=== PATIENT | male | born 2005 | race Caucasian/White ===

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

== ENCOUNTER → 2023-01-02 13:13 | Outpatient (CLI) | payer OTHER, SELFPAY | PROVIDERS: PCP Nurse Practitioner Family; Visit Provider Internal Medicine | DX: G47.33 Obstructive sleep apnea (adult) (pediatric) (principal); R06.83 Snoring | CPT/HCPCS: G0399 ==

== ENCOUNTER 2023-01-24 20:41 | Emergency (ER) | payer SELFPAY ==
[2023-01-24 20:42] VITALS: BP 145/96; PULSE 85; RESP 16; TEMP 37; O2SAT 98; BMI 27.7
[2023-01-24 21:00] VITALS: BP 155/85; PULSE 84; RESP 20; O2SAT 98
--- NOTE | 2023-01-24 21:26 | CT_ITS ---
PROCEDURE INFORMATION: Exam: CT Abdomen And Pelvis With Contrast Exam date and time: 01/24/2023 9:54 PM Age: 17 years old Clinical indication: Abdominal pain; Flank; Right; Additional info: Ruq/rlq abd pain TECHNIQUE: Imaging protocol: Computed tomography of the abdomen and pelvis with contrast. Radiation optimization: All CT scans at this facility use at least one of these dose optimization techniques: automated exposure control; mA and/or kV adjustment per patient size (includes targeted exams where dose is matched to clinical indication); or iterative reconstruction. Contrast material: ISOVUE; Contrast volume: 75 ml; Contrast route: IV; REPORTING DATA: Count of CT and Cardiac NM exams in prior 12 months: This patient has received 3 known CTs and 0 known cardiac nuclear medicine studies in the 12 months prior to the current study. COMPARISON: CT ABDOMEN PELVIS W CON 11/25/2022 3:32 AM FINDINGS: Liver: Normal. No mass. Gallbladder and bile ducts: Normal. No calcified stones. No ductal dilation. Pancreas: Normal. No ductal dilation. Spleen: There are multiple calcifications in the spleen most likely reflects small granulomas. The spleen is enlarged measuring up to 15.1 cm in greatest anterior posterior dimension. Adrenal glands: Normal. No mass. Kidneys and ureters: Normal. No hydronephrosis. Stomach and bowel: Unremarkable. No obstruction. No mucosal thickening. Appendix: No evidence of appendicitis. Intraperitoneal space: Unremarkable. No free air. No significant fluid collection. Vasculature: Unremarkable. No abdominal aortic aneurysm. Lymph nodes: There are mildly prominent central mesenteric lymph nodes. Urinary bladder: Unremarkable as visualized. Reproductive: Unremarkable as visualized. Bones/joints: Unremarkable. No acute fracture. Soft tissues: Unremarkable. IMPRESSION: 1. Splenomegaly, a stable finding. 2. Mildly prominent central abdominal lymph nodes, a stable finding. 3. No acute pathology is identified in the abdomen or pelvis.
--- NOTE | 2023-01-24 21:30 | HMH.EDGENADL ---
Discharge Plan Disposition Patient Disposition: Home, Self-Care Condition: Good Prescriptions Prescriptions: New ondansetron HCl 4 mg tablet 4 mg PO Q8H PRN (Reason: nausea and vomiting) 5 Days Qty: 30 0RF No Action Entresto 49-51 mg tablet 1 tab PO BID Qty: 60 2RF bisoprolol fumarate 5 mg tablet 5 mg PO QDAY Qty: 30 5RF Referrals Follow up/Referrals: Kimberly Guerrero APRN [Primary Care Provider] - See instructions Activity Restrictions/Add. Instructions Additional Instructions/Restrictions: Please follow-up with your primary care provider for recheck of your platelets. They were a little bit low on our blood test today. Your CT scan also showed that your spleen was mildly enlarged. Please return to the emergency department if you develop any new or worsening symptoms or become concerned for your health. Please take Tylenol ibuprofen as needed for pain. Please take Zofran as needed for nausea and vomiting. Clinical Impressions Clinical Impression: Diarrhea, Vomiting, Thrombocytopenia, Splenomegaly Instructions Patient Instructions: DI for Acute Abdominal Pain Discharge ED Provider: Juwan Mccabe Adult HPI General Chief complaint: Abdominal Pain Stated complaint: diarrhea, abd pain Time Seen by Provider: 01/24/23 21:10 Mode of Arrival: Ambulatory Source of Information: Patient Limitations: No Limitations Description of Symptoms (Recalled from ER Triage Doc. by RN): pt reports 2 days of n/v/d with abd pain History of Present Illness HPI narrative: 17-year-old male, reportedly previously healthy presents with 2 days of worsening right upper quadrant and right lower quadrant abdominal pain, with associated nausea vomiting and diarrhea. Patient reports that he has felt warm at home but has not had a documented fever. He reports that nobody else has been sick. Denies any chest pain or shortness of breath. Reports history of heart issues . Related Data Previous Rx's Medication Instructions Recorded bisoprolol fumarate 5 mg tablet 5 mg PO QDAY #30 tabs 12/20/22 sacubitril 49 mg-valsartan 51 mg 1 tab PO BID #60 tabs 01/02/23 tablet (Entresto) ondansetron HCl 4 mg tablet 4 mg PO Q8H PRN nausea and 01/24/23 vomiting 5 days #30 tabs Allergies Allergy/AdvReac Type Severity Reaction Status Date / Time No Known Allergies Allergy Verified 01/02/23 13:39 PFSH PFSH Disclaimer: The information contained in this section may have been updated after the patient was seen, as this information can be updated by other users. Medical History (Updated 01/24/23 @ 22:28 by Juwan Mccabe MD) Abnormal computed tomography angiography (CTA) Abnormal electrocardiogram [ECG] [EKG] ASD (atrial septal defect) Asthma Burning chest pain Cardiomyopathy Chest pain Daytime somnolence Diastolic dysfunction Orthostatic hypotension Pulmonary valve regurgitation Snoring Syncope Systolic heart failure Surgical History No history of previous surgery Family History Other Alcoholism Diabetes Family history of heart disease Stroke Social History Smoking Status: Current some day smoker alcohol intake: former substance use type: marijuana current occupational status: unemployed and disabled Travel in the last 8 weeks: None household members: family housing: house marital status: single ROS Obtained: Yes All systems reviewed & no additional complaints except as documented Physical Exam General General appearance: alert and in no apparent distress Head Head exam: atraumatic and normocephalic Eye Eye exam: Present normal appearance, PERRL and EOMI ENT ENT exam: Present normal oropharynx and normal external ear exam Neck Neck exam: Present normal inspection and full ROM Chest Chest inspection: Present normal
[2023-01-24 21:31] VITALS: BP 136/84; PULSE 82; RESP 20; O2SAT 100
--- NOTE | 2023-01-24 21:36 | PC.NURSE ---
patient to bathroom
[2023-01-24 21:41] VITALS: BP 144/79; PULSE 76; RESP 16
[2023-01-24 21:44] LABS: Chloride 101 mmol/L (98-107); Potassium 3.6 mmoL/L (3.5-5.1); Sodium 140 mmol/L (136-145)
[2023-01-24 21:46] LABS: Alanine Aminotransferase 21 U/L (12-78); Aspartate Amino Transferase 33 U/L (17-59); Blood Urea Nitrogen 10 mg/dl (9-20); Creatinine Clearance Estimated 146 mL/min (50-200); Estimated Glomerular Filt Rate 86 ml/min (>60); GFR (African American) 104 ML/MIN (>60)
[2023-01-24 21:47] LABS: Albumin Level 4.7 g/dl (3.5-5.0); Albumin/Globulin Ratio 1.3 (1.1-1.8); Alkaline Phosphatase 98 U/L (38-126); Anion Gap 14.6 mEq/L (5-15); Bilirubin,Total 1.2 mg/dl (0.2-1.3); Calcium 9.6 mg/dl (8.4-10.2); Carbon Dioxide 28 mmol/L (22.0-30.0); Globulin 3.5 g/dL (1.3-3.2); Glucose 116 mg/dl (74-100); Lipase 59 U/L (23-300); Total Protein,Serum 8.2 g/dl (6.3-8.2)
[2023-01-24 21:48] LABS: Basophils % 0.5 % (0.1-2.0); Eosinophils % 0.8 % (0.1-12.0); Hematocrit 50.4 % (42.0-52.0); Hemoglobin 17.4 g/dL (14.1-18.0); Lymphocytes # 0.8 K/mm3 (0.7-4.5); Lymphocytes % 18.1 % (10-50); Mean Corpuscular HGB Conc 34.6 g/dL (31.8-35.4); Mean Corpuscular Hemoglobin 31.5 pg (27.0-31.2); Mean Platelet Volume 8.8 fl (7.4-10.4); Monocytes # 0.6 K/mm3 (0.1-1.0); Monocytes % 11.9 % (1.7-9.3); Neutrophils # 3.2 K/mm3 (1.8-7.8); Neutrophils % 68.7 % (37.0-80.0); Platelet Count 123 K/mm3 (142-424); Red Blood Count 5.54 M/mm3 (4.60-6.20); Red Cell Distribution Width 12.7 % (11.5-17.5); White Blood Count 4.7 K/mm3 (4.5-13.0)
--- NOTE | 2023-01-24 21:52 | PC.NURSE ---
pt to radiology
[2023-01-24 22:36] VITALS: BP 144/76; PULSE 82; RESP 16; TEMP 36.6; O2SAT 99
== END 2023-01-24 22:38 | disposition home or self-care (01) ==
PROVIDERS: Emergency Provider Emergency Medicine; PCP Nurse Practitioner Family
DX: D69.6 Thrombocytopenia, unspecified (principal); R16.1 Splenomegaly, not elsewhere classified; J45.909 Unspecified asthma, uncomplicated; I42.9 Cardiomyopathy, unspecified; I50.20 Unspecified systolic (congestive) heart failure; I37.1 Nonrheumatic pulmonary valve insufficiency; R10.11 Right upper quadrant pain; R10.32 Left lower quadrant pain; R11.2 Nausea with vomiting, unspecified; F17.200 Nicotine dependence, unspecified, uncomplicated
CPT/HCPCS: 74177; 80053; 83690; 85025; 96361; 96374; 96375; 99285; J2405; Q9967

== ENCOUNTER 2023-06-21 16:51 | Emergency (ER) | payer SELFPAY ==
[2023-06-21 18:10] VITALS: BP 111/72; PULSE 111; RESP 20; TEMP 38.6; O2SAT 97; BMI 32.4
[2023-06-21 18:31] LABS: UTC Influenza A Antigen Positive (Negative); UTC Influenza B Antigen Negative (Negative)
[2023-06-21 18:32] LABS: UTC Strep Screen (Rapid) Negative (Negative)
--- NOTE | 2023-06-21 18:52 | EXP.UTC ---
Discharge Plan Disposition Patient Disposition: Home, Self-Care Condition: Good Prescriptions Prescriptions: New oseltamivir [Tamiflu] 75 mg capsule 75 mg PO Q12H 5 Days Qty: 10 0RF No Action bisoprolol fumarate 5 mg tablet 5 mg PO QDAY Qty: 30 5RF Entresto 49-51 mg tablet 1 tab PO DAILY Referrals Follow up/Referrals: Provider,Referral, MD [Primary Care Provider] - See instructions Activity Restrictions/Add. Instructions Additional Instructions/Restrictions: Start Tamiflu today if you are going to take it. Discussed risk and possible benefits. Lots of rest Increase Fluids water, Gatorade, powerade, pedialyte,if /toddler/child Alternate Tylenol and / or ibuprofen as discussed for fever, aches, chills Follow up IMMEDIATELY with your family doctor for new or worsening Symptoms OR no noticeable improvement over the next 48-72 hours, 911 for difficulty or breathing You or your child area contagious until no fever, aches, chills for 24 hours with medication for symptoms Help Prevent the spread of influenza: ?Wash your hands often. Use soap and water. Wash your hands after you use the bathroom, change a child's diapers, or sneeze. Wash your hands before you prepare or eat food. Use gel hand cleanser that has 60% alcohol, when soap and water are not available. Do not touch your eyes, nose, or mouth unless you have washed your hands first. Cover your mouth when you sneeze or cough. Cough into a tissue or the bend of your arm. If you use a tissue, throw it away immediately and wash your hands. Clean shared items with a germ-killing suction plate carrier cleaner. Clean table surfaces, doorknobs, and light switches. Do not share towels, silverware, and dishes with people who are sick. Wash bed sheets, towels, silverware, and dishes with soap and water. Wear a mask over your mouth and nose if you are sick. The face mask may help protect others from becoming infected with the flu. Wear the mask when in common areas of your home or if you seek care with a healthcare provider. Stay away from others if you are sick. Stay at home until 24 hours after your fever and symptoms are gone. Clinical Impressions Clinical Impression: Influenza Instructions Patient Instructions: DI for Influenza -- Adult, Influenza, Oseltamivir Discharge ED Provider: Elizabeth Reyes [facility] [place] HPI General Stated complaint: congestion, sore throat Mode of Arrival: Ambulatory Source of Information: Patient Limitations: No Limitations Time Seen by Provider: 06/21/23 18:52 Description of Symptoms (Recalled from Triage Doc. by RN): PATIENT C/O CONGESTION, BODY ACHES, SORE THROAT, AND HEADACHE X 2 DAYS HEENT Symptoms (Recalled from RN notes): Yes Resp Symptoms (Recalled from RN notes): No Skin Symptoms (Recalled from RN notes): No MS Symptoms (Recalled from RN notes): No Functional Status (Recalled from RN notes): WNL History of Present Illness Provider Complaint: Patient states that his little brother and several other family members has the flu States that he has been having fever, chills, bodyaches all over and nasal congestion States that he has been having symptoms for two days and today he was still not feeling any better so he came in Related Data Home Medications Medication Instructions Recorded Confirmed sacubitril 49 mg-valsartan 51 mg 1 tab PO DAILY 06/21/23 06/21/23 tablet (Entresto) Previous Rx's Medication Instructions Recorded bisoprolol fumarate 5 mg tablet 5 mg PO QDAY #30 tabs 12/20/22 oseltamivir 75 mg capsule (Tamiflu) 75 mg PO Q12H 5 days #10 caps 06/21/23 Allergies Allergy/AdvReac Type Severity Reaction Status Date / Time No Known Allergies Allergy Verified 01/02/23 13:39 Worker's Comp Is this a Worker's Comp case?: No [facility] Disclaimer: The information contained in this section may have been updated after the patient was seen, as this information can be updated by other users. Medical History (Updated 06/21/23 @ 18:57 by Elizabeth Reyes APRN) Abnormal computed tomography angiography (CTA) Abnormal electrocardiogram [ECG] [EKG] ASD (atrial septal defect) Asthma Burning chest pain Cardiomyopathy Chest pain Daytime somnolence Diastolic dysfunction Orthostatic hypotension Pulmonary valve regurgitation Snoring Syncope Systolic heart failure Surgical History No history of previous surgery Family History Other Alcoholism Diabetes Family history of heart disease Stroke Social History (Reviewed 01/02/23 @ 13:39 by Trang Green Smoking Status: Current some day smoker alcohol intake: former substance use type: marijuana current occupational status: unemployed and disabled Travel in the last 8 weeks: None household members: family housing: house marital status: single ROS Obtained: Yes All systems reviewed & no additional complaints except as documented and Yes Systems reviewed as appropriate & no additional complaints except as documented Constitutional Constitutional: Reports system reviewed and no additional complaints, except as documented, Reports as per HPI, Reports body ache, Reports chills, Reports fever(s) and Reports headache(s) ENT Ears, Nose, Mouth, and Throat: Reports system reviewed and no additional complaints, except as documented, Reports as per HPI, Reports headache(s), Reports nasal congestion and Reports nasal discharge Cardiovascular Cardiovascular: Reports system reviewed and no additional complaints, except as documented and Reports as per HPI Respiratory Respiratory: Reports system reviewed and no additional complaints, except as documented and Reports as per HPI Gastrointestinal Gastrointestingal: Reports system reviewed and no additional complaints, except as documented and as per HPI Neurologic Neurologic: Reports headache(s) Physical Exam General General appearance: alert and in no apparent distress ENT ENT exam: Present mucous membranes moist Expanded ENT Exam Nose exam: Absent sinus tenderness Throat exam: Present normal inspection Respiratory Respiratory exam: Present normal lung sounds bilaterally; Absent respiratory distress or wheezes Cardiovascular Cardiovascular exam: Present regular rate, normal rhythm, tachycardia and normal heart sounds Neurological Exam Neurological exam: Present alert, oriented X3 and normal gait Medical Decision Making Alin Inquiry Pt receiving controlled substance: No Alin was queried for this patient: No Vital Signs: 06/21/23 18:10 Temperature 101.4 F H Temperature Source Oral Pulse Rate [Left Brachial] 111 H Respiratory Rate 20 Blood Pressure [Left Arm] 111/72 Blood Pressure Mean [Left Arm] 85 Blood Pressure Source [Left Arm] Automatic Cuff Blood Pressure Position [Left Arm] Sitting 02 Sat by Pulse Oximetry 97 Oxygen Delivery Method Room Air Lab Data Lab results reviewed: Yes I reviewed the patient's lab results. Lab Results 06/21/23 18:15: Strep Scn Rapid Clinic Negative 06/21/23 18:16: Influenza Type A Ag Positive A, Influenza Type B Ag Negative Orders (Tests/Meds): ORDERS Category Date Time Status Strep Screen Confirmation Stat Micro 06/21/23 18:15 Received
[2023-06-21 18:57] VITALS: BP 111/72; PULSE 111; RESP 20; TEMP 38.6; O2SAT 97
== END 2023-06-21 19:04 | disposition home or self-care (01) ==
PROVIDERS: Emergency Provider Nurse Practitioner
DX: J10.1 Influenza due to other identified influenza virus with other respiratory manifestations (principal); R09.81 Nasal congestion; R51.9 Headache, unspecified; Q21.10 Atrial septal defect, unspecified; J45.909 Unspecified asthma, uncomplicated; I42.9 Cardiomyopathy, unspecified; I50.20 Unspecified systolic (congestive) heart failure; I37.1 Nonrheumatic pulmonary valve insufficiency; F17.200 Nicotine dependence, unspecified, uncomplicated; R07.0 Pain in throat
CPT/HCPCS: 87804; 87880; 99212; 99214; G0463

== ENCOUNTER 2023-07-26 14:18 | Outpatient (CLI) | payer OTHER, SELFPAY ==
--- NOTE | 2023-07-26 14:21 | CA_ITS ---
APPROVED REPORT EXAM: Comprehensive 2D, Doppler, and color-flow Echocardiogram Supervisor Throwing Department: Celestina Gaitan RVT Ht: 6 ft 1 in Wt: 218lbs BSA: 2.23 BP: 141/69 mmHg Indications: CP,CM EF OF 40-45%,CHF,DD,SMOKER,ABBOTT,SYNCOPE,ABN EKG,CHF 2D Dimensions LA Volume 48.70 mL LA Volume Index 21.84 mL/m2 (M/F) 16-34 M-Mode Dimensions RVDd 2.77 cm (0.9-2.6) LA Diam 3.41 cm (1.9-4.0) LVDd 5.66 cm (3.5-5.7) LVDs 4.39 cm (3.5-5.7) IVSd 1.11 cm (0.6-1.1) PWd 0.59 cm (0.6-1.1) EF (Teich) 44.60% FS 22.40% EDV (Teich) 157.50 mL TAPSE 2.30 (<1.7) ESV (Teich) 87.20 mL LV Diastology E Decel Time 150 (160-240 msec) E/A Ratio 1.5 Aortic Valve PRAVEEN Index 1.32 cm2/m2 AoV Peak Yvan. 116.0 (50-130 cm/s) AO Peak GR. 5.40 mmHg AO Mean GR. 3.00 (<5 mmHg) AO VTI 23.7 (18-25 cm) PRAVEEN (VTI) 3.03 (2.5-4.5 cm2) Mitral Valve MV E Max Yvan. 64.0 (40-130 cm/s) MV A Velocity 43.0 (40-130 cm/s) E/A Ratio 1.49 MV PHT 44.0 ms Pulmonary Valve PV Peak Velocity 74.0 (50-150 cm/s) Tricuspid Valve TR P. Velocity 261.00 cm/s RAP Estimate 10.00 mmHg RVSP 37.30 mmHg Left Ventricle The left ventricle is normal size. Left ventricular systolic function is mildly decreased. There is normal left ventricular wall thickness. There is mild global hypokinesis present. Grade 1 diastolic dysfunction is present. LVEF is 40-45%. Right Ventricle The right ventricle is mildly dilated. Right ventricle is mildly hypokinetic. Atria The left atrium size is normal. The right atrium size is normal. Patient is known to have an interatrial shunt based on prior CCTA. There is no Doppler evidence of interatrial shunt on this study. Aortic Valve The aortic valve opens well. There is no aortic valvular stenosis. No aortic regurgitation is present. Mitral Valve The mitral valve is normal in structure. No evidence of mitral valve stenosis. Mild mitral regurgitation. Tricuspid Valve The tricuspid valve leaflets are thin and pliable. Trace tricuspid regurgitation. There is insufficient TR jet to estimate RVSP. Pulmonic Valve The pulmonary valve is normal in structure. Trace pulmonic regurgitation. Great Vessels The aortic root is normal in size. The ascending aorta is normal in size. IVC is normal in size and collapses >50% with inspiration. Pericardium There is no pericardial effusion. Other Information Study Quality: Fair Conclusion Mildly reduced LV systolic function (LVEF 40-45%). Mild RV dilation with mild reduction in RV function. Mild MR. Patient is known to have an interatrial shunt based on prior CCTA. There is no Doppler evidence of interatrial shunt on this study. In the setting of known ASD/PFO on CCTA and now with RV dilation on TTE, further evaluation with BECKY is recommended. Also, cardiac MRI (cardiomyopathy protocol) is recommended to evaluate for the etiology of cardiomyopathy and calculate Qp:Qs ratio in the setting of interatrial shunt. Electronically signed by : Kitty Alexander MD 07/30/2023 11:00:50
== END 2023-07-26 23:59 ==
LOC: RT 14:21
PROVIDERS: PCP Internal Medicine; Visit Provider Internal Medicine
DX: R07.89 Other chest pain; R07.9 Chest pain, unspecified; R55 Syncope and collapse; I37.1 Nonrheumatic pulmonary valve insufficiency; I42.8 Other cardiomyopathies; I50.20 Unspecified systolic (congestive) heart failure
CPT/HCPCS: 93306

== ENCOUNTER 2023-09-02 00:01 | Emergency (ER) | payer OTHER, SELFPAY ==
[2023-09-02 00:03] VITALS: BP 141/74; PULSE 65; RESP 18; TEMP 36.4; O2SAT 98; BMI 30.3
[2023-09-02] MEDS: OXYCODONE 5MG IMMEDIATE RELEASE TABLET 2.5 MG PO (00:39)
[2023-09-02] MEDS: AMOXICILLIN/CLAVULANATE POTASSIUM 875/125MG TABLET 1 EACH PO (00:39)
[2023-09-02] MEDS: ACETAMINOPHEN 500MG TAB 1000 MG PO (00:39)
[2023-09-02 00:56] VITALS: BP 142/85; PULSE 59; RESP 18; TEMP 36.7; O2SAT 98
--- NOTE | 2023-09-02 01:05 | HMH.EDGENADL ---
Discharge Plan Disposition Patient Disposition: Home, Self-Care Condition: Good Prescriptions Prescriptions: New acetaminophen 500 mg tablet 500 mg PO Q6H PRN (Reason: fever or pain) Qty: 30 0RF amoxicillin-pot clavulanate 875-125 mg tablet 1 tab PO BID Qty: 14 0RF chlorhexidine gluconate [Peridex] 0.12 % mouthwash 15 ml buccal BID 5 Days Qty: 473 0RF Rx Instructions: Swish for 30 seconds then spit. Twice daily for 5 days. oxycodone 5 mg tablet 5 mg PO TID PRN (Reason: severe pain) Qty: 5 0RF oxycodone 5 mg tablet 5 mg PO TID PRN (Reason: severe pain (scale score 7-10)) Qty: 5 0RF Rx Instructions: Take if needed for pain not controlled by your other medications. No Action Entresto 24-26 mg tablet 1 tab PO BID Qty: 60 3RF bisoprolol fumarate 5 mg tablet 5 mg PO QDAY Qty: 30 5RF Referrals Follow up/Referrals: Adiel Beltre DO [Staff Physician] - See instructions (Needs mastic PCP, hx cardiomyopathy, in ED for dental pain) Kyle Germain MD [Primary Care Provider] - See instructions Activity Restrictions/Add. Instructions Additional Instructions/Restrictions: You were evaluated in the ER. You are appropriate for discharge at this time. Go to a dentist on Sunday or Sunday, you must see them as soon as possible to have your teeth fixed. You have been referred to a primary care physician in [place] for follow-up. Make an appointment with them for reevaluation as soon as possible. Take the amoxicillin?clavulanate as directed, do not skip doses, do not stop taking it early. This is an antibiotic. Rinse your mouth with the mouthwash twice daily as directed. Take the acetaminophen if needed for pain, do not take more than 4 pills of this medication in 1 day Only take the oxycodone if you are having severe pain after taking acetaminophen. This medication may make you sleepy or confused, do not drive after taking this medication. It also may make you constipated. Return to the ER with new, worsening, or otherwise concerning symptoms. Clinical Impressions Clinical Impression: Pain, dental, Dental disease Discharge ED Provider: Castillo,Mikalah General Adult HPI General Chief complaint: Dental/Oral Stated complaint: right side jaw pain Time Seen by Provider: 09/02/23 00:21 Mode of Arrival: Ambulatory Source of Information: Patient Limitations: No Limitations Description of Symptoms (Recalled from ER Triage Doc. by RN): Patient reports pain on left lower jaw, has several broken teeth. Rates pain 7/10 with burning into tongue. Patient reports the pain started 2 days ago. Has not seen dentist in several years. No fevers at home. History of Present Illness HPI narrative: 18-year-old male with a history of ASD, cardiomyopathy, HFrEF, hypertension presents to the ER with concerns of left jaw dental pain. Patient states this has been going on for 2 days. He also has a burning sensation in the left side of the tongue. Patient reports he does not like going to doctors and does not recall the last time he saw dentist. He denies any fevers. Patient states the left side of his face is swollen. He is able to swallow, no difficulty breathing. Patient states he took a pain reliever p.m. without resolution of symptoms. Related Data Previous Rx's Medication Instructions Recorded bisoprolol fumarate 5 mg tablet 5 mg PO QDAY #30 tabs 12/20/22 sacubitril 24 mg-valsartan 26 mg 1 tab PO BID #60 tabs 07/25/23 tablet (Entresto) acetaminophen 500 mg tablet 500 mg PO Q6H PRN fever or pain 09/02/23 #30 tabs amoxicillin 875 mg-potassium 1 tab PO BID #14 tabs 09/02/23 clavulanate 125 mg tablet chlorhexidine gluconate 0.12 % 15 ml buccal BID 5 days #473 mL 09/02/23 mouthwash (Peridex) oxycodone 5 mg tablet 5 mg PO TID PRN severe pain #5 tabs 09/02/23 oxycodone 5 mg tablet 5 mg PO TID PRN severe pain (scale 09/02/23 score 7-10) #5 tabs Allergies Allergy/AdvReac Type Severity Reaction Status Date / Time No Known Allergies Allergy Verified 07/25/23 11:46 [facility] Disclaimer: The information contained in this section may have been updated after the patient was seen, as this information can be updated by other users. Medical History (Updated 09/02/23 @ 00:33 by Sherly Castillo MD) HFrEF (heart failure with reduced ejection fraction) Daytime somnolence Snoring ASD (atrial septal defect) Abnormal computed tomography angiography (CTA) Cardiomyopathy Syncope Orthostatic hypotension Pulmonary valve regurgitation Diastolic dysfunction Burning chest pain Chest pain Systolic heart failure Abnormal electrocardiogram [ECG] [EKG] Asthma Surgical History No history of previous surgery Family History Other Alcoholism Diabetes Family history of heart disease Stroke Social History Smoking Status: Current every day smoker alcohol intake: former substance use type: marijuana current occupational status: unemployed and disabled Travel in the last 8 weeks: None household members: family housing: house marital status: single ROS Obtained: Yes All systems reviewed & no additional complaints except as documented Constitutional Constitutional: Denies chills, Denies fever(s), Denies headache(s) and Denies weakness Eyes Eyes: Denies change in vision ENT Ears, Nose, Mouth, and Throat: Reports dental pain, Denies dizziness, Reports facial pain (And facial swelling), Denies headache(s), Denies nasal congestion and Denies sore throat Cardiovascular Cardiovascular: Denies chest pain, Denies dyspnea and Denies leg edema Respiratory Respiratory: Denies cough and Denies dyspnea Gastrointestinal Gastrointestingal: Denies constipation, diarrhea, nausea or vomiting Genitourinary Male Genitourinary: Denies difficulty urinating Musculoskeletal Musculoskeletal: Denies arthralgias, Denies myalgias, Denies numbness and Denies tingling Integumentary/Breasts Skin/Breast: Denies change in pigmentation Neurologic Neurologic: Denies dizziness, Denies headache(s), Denies numbness, Denies tingling and Denies weakness Physical Exam General General appearance: alert and in no apparent distress Head Head exam: atraumatic, normocephalic and other (Mild swelling over left cheek/mandible, no deformity or findings of trauma) Eye Eye exam: Present PERRL and EOMI ENT ENT exam: Present mucous membranes moist Expanded ENT Exam Open Mouth Image: 1. Area of swelling without obvious fluctuance of the gingiva, no obvious abscess Teeth exam: Present dental caries, fractured tooth # (19, 20) and dental tenderness # (Gingiva at the base of tooth 19, 20) Comment: Small aphthous ulcer at posterior left lateral tongue, no other intraoral lesions appreciated Neck Neck exam: Present normal inspection, full ROM and other (No submandibular swelling or induration, this space is soft); Absent tenderness, meningismus or lymphadenopathy Chest Chest inspection: Present symmetric chest wall rise Respiratory Respiratory exam: Present normal lung sounds bilaterally; Absent respiratory distress, wheezes or stridor Cardiovascular Cardiovascular exam: Present regular rate, normal rhythm and other (No peripheral edema) Abdominal Exam Abdominal exam: Present soft; Absent distention or tenderness Extremities Exam Extremities exam: Present full ROM Neurological Exam Neurological exam: Present alert and oriented X3; Absent motor sensory deficit Psychiatric Psychiatric exam: Present normal affect and normal mood Skin Skin exam: Present warm and dry Medical Decision Making Medical Records Medical records reviewed: Yes I reviewed the patient's medical records. MR Comment: Review of most recent cardiology note demonstrates extensive cardiac disease for a young male. Patient has an ejection fraction of 40 to 45%. Unknown etiology of cardiomyopathy. CCTA with no coronary calcification, small secundum ASD versus PFO Alin Inquiry Pt receiving controlled substance: Yes Alin was queried for this patient: Yes Reference #:: [id number] Risks and benefits of using a controlled substance: were discussed with pt by me Vital Signs: 09/02/23 00:03 09/02/23 00:56 Temperature 97.6 F 98.0 F Temperature Source Oral Oral Pulse Rate 59 L Pulse Rate [Left Radial] 65 Respiratory Rate 18 18 Blood Pressure 142/85 H Blood Pressure [Right Arm] 141/74 H Blood Pressure Mean [Right Arm] 96 Blood Pressure Source [Right Arm] Automatic Cuff Blood Pressure Position Sitting Blood Pressure Position [Right Arm] Sitting 02 Sat by Pulse Oximetry 98 Oxygen Delivery Method Room Air Room Air Orders (Tests/Meds): ED MEDICATIONS Discontinued Medications Generic Name Dose Route Start Last Admin Trade Name Freq PRN Reason Stop Dose Admin Acetaminophen 1,000 mg 09/02/23 00:32 09/02/23 00:39 Acetaminophen 500mg Tab PO 09/02/23 00:33 1,000 mg ONCE ONE Administration Amoxicillin/Clavulanate Potassium 1 each 09/02/23 00:32 09/02/23 00:39 Amoxicillin/Clavulanate Potassium 875/125mg Tablet PO 09/02/23 00:33 1 each ONCE ONE Administration Oxycodone HCl 2.5 mg 09/02/23 00:33 09/02/23 00:39 Oxycodone 5mg Immediate Release Tablet PO 09/02/23 00:34 2.5 mg ONCE ONE Administration Medical Decision Narrative: In summary, this 18year old male with a history of cardiomyopathy, HFrEF which are comorbidities of current condition and increases overall morbidity presents to the emergency department today with dental pain, facial swelling. On initial evaluation patient is hemodynamically stable, afebrile, resting comfortably. Mild swelling of the left side of the face over the left mandible, no findings of trauma, no deformity of the mandible, there is gingival swelling and erythema at the bases of teeth 19 and 20, multiple dental caries and fractures. No abscess identified. Small aphthous ulcer on left lateral tongue. Differential diagnosis includes but is not limited to dental disease, gingivitis, dental abscess, dental fracture, I considered Ludewig's angina, however patient does not have any swelling in the submandibular space, no tenderness, no induration, I have no concern for this on exam. Based on these concerns, I ordered 1 dose of Augmentin and small dose of oxycodone for pain control in the ER since patient has failed [id number] p.m. pain relief medication at home. I prescribed the patient Augmentin, Peridex, acetaminophen, and short course of oxycodone for breakthrough severe pain until he is able to see a dentist at the beginning of the week. I gave him specific instructions on medication administration, follow-up with a dentist, I provided him referral to primary care physician in [place] since he is not able to access his previous primary care physician easily due to location, and I gave him strict return precautions for the ER. All of these instructions were provided verbally and in writing. He indicated understanding the patient was discharged in stable condition. Critical Care Critical Care Time Critical Care Time: No
== END 2023-09-02 00:58 | disposition home or self-care (01) ==
PROVIDERS: Emergency Provider Emergency Medicine; PCP Family Medicine
DX: K08.89 Other specified disorders of teeth and supporting structures (principal); F17.210 Nicotine dependence, cigarettes, uncomplicated; Q21.10 Atrial septal defect, unspecified; I50.20 Unspecified systolic (congestive) heart failure; I42.9 Cardiomyopathy, unspecified
CPT/HCPCS: 99283

== ENCOUNTER 2023-09-07 15:17 | Emergency (ER) | payer OTHER, SELFPAY ==
[2023-09-07 15:20] VITALS: BP 129/88; PULSE 91; RESP 19; TEMP 36.6; O2SAT 99; BMI 31.8
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
[2023-09-07 15:43] VITALS: BP 129/88; PULSE 91; RESP 19; TEMP 36.6; O2SAT 99
== END 2023-09-07 15:58 | disposition home or self-care (01) ==
PROVIDERS: Emergency Provider Physician Assistant; PCP Internal Medicine
DX: T23.101A Burn of first degree of right hand, unspecified site, initial encounter (principal); F17.210 Nicotine dependence, cigarettes, uncomplicated; X17.XXXA Contact with hot engines, machinery and tools, initial encounter
CPT/HCPCS: 99212; 99214; G0463

== ENCOUNTER 2023-12-21 15:57 | Emergency (ER) | payer OTHER, SELFPAY ==
[2023-12-21 16:30] VITALS: BP 131/73; PULSE 67; RESP 20; TEMP 36.8; O2SAT 99; BMI 29.2
--- NOTE | 2023-12-21 16:47 | EXP.UTC ---
Discharge Plan Disposition Patient Disposition: Home, Self-Care Condition: Good Prescriptions Prescriptions: New amoxicillin 875 mg tablet 875 mg PO Q12H Qty: 20 0RF benzonatate 100 mg capsule 100 mg PO TIDP PRN (Reason: Cough) Qty: 30 0RF ibuprofen [IBU] 400 mg tablet 400 mg PO Q6HP PRN (Reason: Moderate Pain) Qty: 30 0RF No Action bisoprolol fumarate 5 mg tablet 5 mg PO DAILY Entresto 24-26 mg tablet 1 tab PO DAILY Referrals Follow up/Referrals: Adiel Beltre DO [Primary Care Provider] - See instructions Activity Restrictions/Add. Instructions Additional Instructions/Restrictions: Drink plenty of fluids. Take tylenol or ibuprofen for pain or fever. Take the medications as directed. Follow up with your regular doctor. GO TO THE ER FOR ANY WORSENING SYMPTOMS Clinical Impressions Clinical Impression: Pharyngitis, Bronchitis Instructions Patient Instructions: Sore Throat, DI for Pharyngitis/Tonsillopharyngitis -- Adult Discharge ED Provider: Ge Currie [facility] General Stated complaint: sore throat Time Seen by Provider: 12/21/23 16:41 Related Data Home Medications Medication Instructions Recorded Confirmed bisoprolol fumarate 5 mg tablet 5 mg PO DAILY 12/21/23 12/21/23 sacubitril 24 mg-valsartan 26 mg 1 tab PO DAILY 12/21/23 12/21/23 tablet (Entresto) Previous Rx's Medication Instructions Recorded amoxicillin 875 mg tablet 875 mg PO Q12H #20 tabs 12/21/23 benzonatate 100 mg capsule 100 mg PO TIDP PRN Cough #30 caps 12/21/23 ibuprofen 400 mg tablet (IBU) 400 mg PO Q6HP PRN Moderate Pain 12/21/23 #30 tabs Allergies Allergy/AdvReac Type Severity Reaction Status Date / Time No Known Allergies Allergy Verified 07/25/23 11:46 [facility] Disclaimer: The information contained in this section may have been updated after the patient was seen, as this information can be updated by other users. Medical History (Updated 12/21/23 @ 16:59 by Ge Currie APRN) HFrEF (heart failure with reduced ejection fraction) Daytime somnolence Snoring ASD (atrial septal defect) Abnormal computed tomography angiography (CTA) Cardiomyopathy Syncope Orthostatic hypotension Pulmonary valve regurgitation Diastolic dysfunction Burning chest pain Chest pain Systolic heart failure Abnormal electrocardiogram [ECG] [EKG] Asthma Surgical History No history of previous surgery Family History Other Alcoholism Diabetes Family history of heart disease Stroke Social History Smoking Status: Current every day smoker alcohol intake: former substance use type: marijuana current occupational status: unemployed and disabled Travel in the last 8 weeks: None household members: family housing: house marital status: single ROS Obtained: Yes All systems reviewed & no additional complaints except as documented Constitutional Constitutional: Reports chills and Reports fever(s) Eyes Eyes: Denies eye discharge ENT Ears, Nose, Mouth, and Throat: Reports as per HPI Cardiovascular Cardiovascular: Denies chest pain Respiratory Respiratory: Denies chest congestion and Reports cough Gastrointestinal Gastrointestingal: Reports nausea; Denies abdominal pain, constipation, cramping, diarrhea or vomiting Musculoskeletal Musculoskeletal: Denies arthralgias Integumentary/Breasts Skin/Breast: Denies rash Neurologic Neurologic: Denies paresthesias Physical Exam General General appearance: alert and in no apparent distress Head Head exam: atraumatic, normocephalic and normal inspection Eye Eye exam: Present normal appearance, PERRL and EOMI ENT ENT exam: Present mucous membranes moist and normal external ear exam Expanded ENT Exam TM/Canal exam: Bilateral TM: erythema and bulging Nose exam: Absent sinus tenderness Mouth exam: Present normal external inspection; Absent drooling Teeth exam: Present normal inspection Throat exam: Present tonsillar erythema, tonsillomegaly and tonsillar exudate Neck Neck exam: Present normal inspection, full ROM and trachea midline; Absent tenderness, meningismus or lymphadenopathy Chest Chest inspection: Present normal inspection and symmetric chest wall rise; Absent tenderness Respiratory Respiratory exam: Present normal lung sounds bilaterally; Absent respiratory distress, wheezes, stridor or accessory muscle use Cardiovascular Cardiovascular exam: Present regular rate and normal rhythm; Absent systolic murmur or diastolic murmur Abdominal Exam Abdominal exam: Present soft and normal bowel sounds; Absent distention, tenderness, guarding, rebound or rigidity Extremities Exam Extremities exam: Present normal inspection and normal capillary refill; Absent calf tenderness Back Exam Back exam: Present normal inspection and full ROM; Absent tenderness, CVA tenderness (R) or CVA tenderness (L) Neurological Exam Neurological exam: Present alert, oriented X3 and CN II-XII intact Psychiatric Psychiatric exam: Present normal affect and normal mood Skin Skin exam: Present warm, dry, intact and normal color Medical Decision Making Medical Records Medical records reviewed: No I reviewed the patient's medical records. Alin Inquiry Pt receiving controlled substance: No Lab Data Lab results reviewed: Yes I reviewed the patient's lab results.
[2023-12-21 17:00] VITALS: BP 131/73; PULSE 67; RESP 20; TEMP 36.8; O2SAT 99
== END 2023-12-21 17:03 | disposition home or self-care (01) ==
PROVIDERS: Emergency Provider Nurse Practitioner Family; PCP Internal Medicine
DX: J20.9 Acute bronchitis, unspecified (principal); J02.9 Acute pharyngitis, unspecified
CPT/HCPCS: 99212; 99214; G0463

== ENCOUNTER 2024-06-16 04:46 | Emergency (ER) | payer OTHER, SELFPAY ==
[2024-06-16 04:46] VITALS: BP 149/102; PULSE 67; RESP 20; TEMP 36.9; O2SAT 97; BMI 28.5
--- NOTE | 2024-06-16 05:00 | XR_ITS ---
PROCEDURE INFORMATION: Exam: XR Chest Exam date and time: 06/16/2024 5:08 AM Age: 18 years old Clinical indication: Pain; Chest pressure; Additional info: Cp TECHNIQUE: Imaging protocol: Radiologic exam of the chest. Views: 1 view. COMPARISON: CR XR CHEST 2V 11/25/2022 2:32 AM FINDINGS: Lungs: No evidence of pneumonia or interstitial edema. Pleural spaces: Unremarkable. No pleural effusion. No pneumothorax. Heart/Mediastinum: Unremarkable. No cardiomegaly. Bones/joints: Unremarkable. IMPRESSION: No evidence of pneumonia or interstitial edema.
--- NOTE | 2024-06-16 05:05 | ECG_ITS ---
APPROVED REPORT Exam: Resting ECG HR:61 bpm ECG Measurements Heart Rate 61 AXES OH 148 P 31 QRSd 105 QRS 66 QT 373 T 10 QTc 376 Conclusion SINUS RHYTHM WITH SINUS ARRHYTHMIA NORMAL ECG UNCONFIRMED REPORT Electronically signed by : CHAD JOHNSON, 06/16/2024 06:36:50
[2024-06-16 05:17] VITALS: BP 140/86; PULSE 65; O2SAT 98
[2024-06-16 05:18] VITALS: BP 140/86; PULSE 61; RESP 18; TEMP 36.9; O2SAT 98
--- NOTE | 2024-06-16 05:20 | HMH.EDGENADL ---
Discharge Plan Disposition Patient Disposition: Home, Self-Care Condition: Good Chief Complaint: Recheck/Abnormal Lab/Rx Prescriptions Prescriptions: No Action Entresto 24-26 mg tablet See Rx Instructions .ROUTE .COMPLEX Qty: 60 5RF Dose Instruction: TAKE ONE TABLET BY MOUTH 2 TIMES A DAY Rx Instructions: TAKE ONE TABLET BY MOUTH 2 TIMES A DAY bisoprolol fumarate 5 mg tablet See Rx Instructions .ROUTE .COMPLEX Qty: 90 3RF Dose Instruction: TAKE ONE TABLET BY MOUTH EVERY DAY Rx Instructions: TAKE ONE TABLET BY MOUTH EVERY DAY amoxicillin 875 mg tablet 875 mg PO Q12H Qty: 20 0RF benzonatate 100 mg capsule 100 mg PO TIDP PRN (Reason: Cough) Qty: 30 0RF ibuprofen [IBU] 400 mg tablet 400 mg PO Q6HP PRN (Reason: Moderate Pain) Qty: 30 0RF Referrals Follow up/Referrals: Provider,Referral, MD [Primary Care Provider] - See instructions Activity Restrictions/Add. Instructions Additional Instructions/Restrictions: Please follow-up with your primary care provider. Please return to the emergency department if you develop any new or worsening symptoms or become concerned for your health. Clinical Impressions Clinical Impression: Burning chest pain Print Language Print Language: Ivorian Discharge ED Provider: Juwan Mccabe Adult HPI General Chief complaint: Recheck/Abnormal Lab/Rx Stated complaint: acid reflux Time Seen by Provider: 06/16/24 04:51 Mode of Arrival: EMS Source of Information: Patient Limitations: No Limitations Description of Symptoms (Recalled from ER Triage Doc. by RN): Patient presents to ED via [facility] with c/o of chest pain that started 20:00 on 06/15. Patient is now stating his cp is /10. Patient describes the pain as 'burning'. Patient took some pepto and is stating it is more acid reflex. Patient reports he did eat some hot sauce last night. History of Present Illness HPI narrative: 18-year-old male with with history of paroxysmal SVT presents with burning chest pain. He reports that started after eating hot sauce and food yesterday evening. It was getting better and worse but ultimately got better after taking Pepto-Bismol. He denies any current chest pain. His family reports that he sometimes has spells where he shakes and stiffens up. It is worse when he gets stressed out. He apparently had 1 of those episodes tonight. They are unable to provide any further details. He does not have any history of seizures. They are also worried he could have diabetes. Overall, not exactly clear why he is here currently. Does not have any symptoms at this time. Related Data Previous Rx's ?Medication ?Instructions ?Recorded amoxicillin 875 mg tablet 875 mg PO Q12H #20 tabs 12/21/23 benzonatate 100 mg capsule 100 mg PO TIDP PRN Cough #30 caps 12/21/23 ibuprofen 400 mg tablet (IBU) 400 mg PO Q6HP PRN Moderate Pain 12/21/23 #30 tabs bisoprolol fumarate 5 mg tablet See Rx Instructions .Route 12/31/23 .COMPLEX #90 tabs sacubitril 24 mg-valsartan 26 mg See Rx Instructions .Route 12/31/23 tablet (Entresto) .COMPLEX #60 tabs Allergies Allergy/AdvReac Type Severity Reaction Status Date / Time No Known Allergies Allergy Verified 12/31/23 10:35 [facility] Disclaimer: The information contained in this section may have been updated after the patient was seen, as this information can be updated by other users. Medical History HFrEF (heart failure with reduced ejection fraction) Daytime somnolence Snoring ASD (atrial septal defect) Abnormal computed tomography angiography (CTA) Cardiomyopathy Syncope Orthostatic hypotension Pulmonary valve regurgitation Diastolic dysfunction Burning chest pain Chest pain Systolic heart failure Abnormal electrocardiogram [ECG] [EKG] Asthma Surgical History No history of previous surgery Family History Other Alcoholism Diabetes Family history of heart disease Stroke Social History Smoking Status: Current every day smoker alcohol intake: former substance use type: marijuana current occupational status: unemployed and disabled Travel in the last 8 weeks: None household members: family housing: house marital status: single Other Medical History Have you received the Flu Vaccine for this season: No Have you received the Pneumonia Vaccine: No ROS Obtained: Yes All systems reviewed & no additional complaints except as documented Physical Exam General General appearance: alert and in no apparent distress Head Head exam: atraumatic and normocephalic Eye Eye exam: Present normal appearance, PERRL and EOMI ENT ENT exam: Present normal oropharynx and normal external ear exam Neck Neck exam: Present normal inspection and full ROM Chest Chest inspection: Present normal inspection and symmetric chest wall rise; Absent tenderness Respiratory Respiratory exam: Present normal lung sounds bilaterally; Absent respiratory distress Cardiovascular Cardiovascular exam: Present regular rate and normal rhythm Abdominal Exam Abdominal exam: Present soft; Absent distention, tenderness or guarding Extremities Exam Extremities exam: Present normal inspection; Absent edema or joint swelling Back Exam Back exam: Present normal inspection; Absent tenderness Neurological Exam Neurological exam: Present alert and oriented X3; Absent motor sensory deficit Psychiatric Psychiatric exam: Present normal affect and normal mood Skin Skin exam: Present warm, dry and normal color Lymphatic Lymphatic Findings: no adenopathy Medical Decision Making Medical Records Medical records reviewed: Yes I reviewed the patient's medical records. Screening: Per USPSTF and CDC recommendations, given the prevalence of disease in our region, it is our hospital?s policy to screen for HIV and viral Hepatitis for all patients aged 18 and over and those with ongoing risk factors. Alin Inquiry Pt receiving controlled substance: No Alin was queried for this patient: No Vital Signs: 06/16/24 04:46 06/16/24 05:17 06/16/24 05:18 Temperature 98.4 F 98.4 F Temperature Source Oral Oral Pulse Rate 61 Pulse Rate [Right Apical] 67 65 Respiratory Rate 20 18 Blood Pressure 140/86 Blood Pressure [Right Arm] 149/102 H 140/86 Blood Pressure Mean [Right Arm] 117 104 Blood Pressure Source Automatic Cuff Blood Pressure Source [Right Arm] Automatic Cuff Automatic Cuff Blood Pressure Position Supine Blood Pressure Position [Right Arm] Supine Supine 02 Sat by Pulse Oximetry 97 98 Oxygen Delivery Method Room Air Room Air Room Air Lab Data Lab results reviewed: Yes I reviewed the patient's lab results. Orders (Tests/Meds): ORDERS Category Date Time Status CXR --portable [XR chest portable] Stat Exams 06/16/24 05:00 Taken HIV (1&2) Antibody Rapid Stat Lab 06/16/24 05:02 Ordered Hep C Ab with Reflex to RNA Stat Lab 06/16/24 05:02 Ordered ECG Data Tracing #1: I reviewed this ECG and interpreted as documented below: Sinus rhythm, rate of 61, no evidence of ischemia or arrhythmia. ECG initial impression date: 06/16/24 ECG initial impression time: 05:05 Medical Decision Narrative: 18-year-old male with history of SVT presents for now resolved burning chest pain that improved after taking Pepto-Bismol. He may have had a abnormal spell of some kind as well. History was obtained via interactive discussion with patient, patient's sister, chart review. On arrival, patient is [afebrile, hemodynamically stable, satting appropriately, alert, oriented x4, GCS 15], moving all extremities spontaneously. Full physical exam performed and significant for no significant physical exam abnormalities. Patient currently has no complaints. Differential includes but is not limited to reflux, SVT, spell, seizure. Low concern for emergent pathology at this time given history exam and no symptoms currently. Fingerstick 109. Chest x-ray was obtained and shows no focal opacity. EKG shows normal sinus rhythm without abnormality. Patient discharged in stable condition. Return precautions given.. Blood work was considered, but deemed unnecessary due to history and exam. Procedures Risk/Benefits of Procedure(s) Were Explained: Yes Critical Care Critical Care Time Critical Care Time: No
[2024-06-16 06:14] LABS: HIV Combo NEGATIVE (Negative)
[2024-06-18 05:10] LABS: HCV Ab Non Reactive (Non Reactive)
== END 2024-06-16 05:23 | disposition home or self-care (01) ==
LOC: ER 04:50
PROVIDERS: Emergency Provider Emergency Medicine
DX: R07.89 Other chest pain (principal)
CPT/HCPCS: 71045; 86803; 87389; 93005; 99283

== ENCOUNTER 2024-07-07 14:42 | Outpatient (CLI) | payer OTHER, SELFPAY | END 2024-07-07 23:59 | disposition home or self-care (01) | LOC: RT 14:47 | PROVIDERS: PCP Internal Medicine; Visit Provider Internal Medicine | DX: R00.2 Palpitations (principal) | CPT/HCPCS: 93270 ==

== ENCOUNTER 2024-07-16 08:51 | Day surgery (SDC) | payer OTHER, SELFPAY ==
[2024-07-15 09:54] VITALS: BMI 28.5
[2024-07-16 09:13] VITALS: BP 136/75; PULSE 78; RESP 18; TEMP 36.3; O2SAT 96
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
[2024-07-16] MEDS: LACTATED RINGERS 1000ML 1,000 ML 50 ML IV (09:24)
--- NOTE | 2024-07-16 09:29 | ECG_ITS ---
APPROVED REPORT Exam: Resting ECG HR:63 bpm ECG Measurements Heart Rate 63 AXES MS 149 P 51 QRSd 102 QRS 23 QT 365 T 13 QTc 373 Conclusion SINUS RHYTHM WITH MARKED SINUS ARRHYTHMIA BORDERLINE ECG UNCONFIRMED REPORT Electronically signed by : Kyle Daniels MD 07/17/2024 16:36:43
[2024-07-16 09:34] LABS: Chloride 103 mmol/L (98-107); Potassium 4.2 mmoL/L (3.5-5.1); Sodium 138 mmol/L (136-145)
[2024-07-16 09:37] LABS: Anion Gap 11.2 mEq/L (5-15); Blood Urea Nitrogen 17 mg/dl (9-20); Calcium 9.2 mg/dl (8.4-10.2); Carbon Dioxide 28 mmol/L (22.0-30.0); Creatinine Clearance Estimated 144 mL/min (50-200); Estimated Glomerular Filt Rate 85 ml/min (>60); GFR (African American) 103 ML/MIN (>60); Glucose 93 mg/dl (74-100)
[2024-07-16 09:41] LABS: Basophils % 0.6 % (0.1-2.0); Eosinophils # 0.3 K/mm3 (0.0-0.4); Eosinophils % 5.4 % (0.1-12.0); Hematocrit 46.3 % (42.0-52.0); Hemoglobin 16.5 g/dL (14.1-18.0); Lymphocytes # 1.3 K/mm3 (0.7-4.5); Lymphocytes % 28.1 % (10-50); Mean Corpuscular HGB Conc 35.6 g/dL (31.8-35.4); Mean Corpuscular Hemoglobin 31.3 pg (27.0-31.2); Mean Corpuscular Volume 87.7 fl (80-94); Mean Platelet Volume 10.8 fl (7.4-10.4); Monocytes # 0.4 K/mm3 (0.1-1.0); Monocytes % 8.4 % (1.7-9.3); Neutrophils # 2.7 K/mm3 (1.8-7.8); Neutrophils % 57.3 % (37.0-80.0); Platelet Count 151 K/mm3 (142-424); Red Blood Count 5.28 M/mm3 (4.60-6.20); Red Cell Distribution Width 11.8 % (11.5-17.5); White Blood Count 4.7 K/mm3 (4.5-13.0)
[2024-07-16 09:59] LABS: INR 0.97 (0.9-1.1); Prothrombin Time 10.7 seconds (9.2-12.1)
--- NOTE | 2024-07-16 10:22 | EXP.ANES.CKL ---
[facility] Disclaimer: The information contained in this section may have been updated after the patient was seen, as this information can be updated by other users. Medical History Palpitations Abnormal findings on diagnostic imaging of heart and coronary circulation HFrEF (heart failure with reduced ejection fraction) Daytime somnolence Snoring ASD (atrial septal defect) Abnormal computed tomography angiography (CTA) Cardiomyopathy Syncope Orthostatic hypotension Pulmonary valve regurgitation Diastolic dysfunction Burning chest pain Chest pain Systolic heart failure Abnormal electrocardiogram [ECG] [EKG] Asthma Surgical History No history of previous surgery Family History Other Alcoholism Diabetes Family history of heart disease Stroke Social History (Updated 07/16/24 @ 09:21 by Radha Mathews RN) Smoking Status: Current every day smoker alcohol intake: never substance use type: marijuana current occupational status: unemployed Travel in the last 8 weeks: None household members: family housing: house marital status: single caffeine: Yes Have you lived/traveled outside US in past 30 days?: No Contact w/someone who lives/traveled outside US past 30 days?: No Exposure to someone with infectious disease in past 14 days?: No Do you have a fever (greater than 100.4 F or 38 C)?: No Have you tested positive for COVID-19: No Exposed to someone with COVID-19 in past 14 days?: No Do you have a sore throat?: No Do you have a cough?: No Do you have any weakness?: No Are you experiencing any nausea/vomitting?: No Do you have any diarrhea?: No Are you experiencing any unusual bleeding?: No Do you have any muscle aches/pain?: No Do you have any abdominal pain?: No Are you experiencing loss of taste or smell?: No [facility] Anesthesia Checklist Patient Identification Patient Identification: Verbal (Name & ) Structural Data Admitted From: Home Planned Operative Procedure/s: BECKY Consent for Planned Operative Procedure(s) Verified: Yes NPO Status Verified Time NPO: 00:00 Additional verifications Anesthesia Reactions: No Hx Blood Transfusions: No Blood Transfusion Reaction: No Airway Assessment Mallampati Score:: Class II C-Spine Mobility Assessed: Yes TMJ Mobility Assessed: Yes Dentition: Poor Dentition Neurological Assessment Level of Consciousness: Awake, Alert and Appropriate Anesthesia Plan Anesthesia Risk discussed: Yes Anesthesia Plan: Verified ASA Class: III Anesthesia Type: MAC
[2024-07-16 11:23] VITALS: O2SAT 96
[2024-07-16 11:53] VITALS: BP 112/79; PULSE 75; RESP 18; TEMP 36.2; O2SAT 95
[2024-07-16 12:03] VITALS: BP 110/83; PULSE 68; RESP 18; O2SAT 94
[2024-07-16 12:13] VITALS: BP 121/65; PULSE 58; RESP 18; O2SAT 94
[2024-07-16 12:57] VITALS: BP 122/70; PULSE 65; RESP 18; O2SAT 98
== END 2024-07-16 11:58 | disposition home or self-care (01) ==
PROVIDERS: PCP Internal Medicine; Visit Provider Internal Medicine
DX: I50.20 Unspecified systolic (congestive) heart failure (principal); I42.9 Cardiomyopathy, unspecified; F17.210 Nicotine dependence, cigarettes, uncomplicated; I37.1 Nonrheumatic pulmonary valve insufficiency; I95.1 Orthostatic hypotension; R93.1 Abnormal findings on diagnostic imaging of heart and coronary circulation; R00.2 Palpitations; Z79.899 Other long term (current) drug therapy
CPT/HCPCS: 80048; 85025; 85610; 93005; 93270; 93312; 93319; J2250; J7120

== ENCOUNTER 2024-08-14 13:16 | Emergency (ER) | payer OTHER, SELFPAY ==
[2024-08-14 13:22] VITALS: BP 140/97; PULSE 76; O2SAT 99
--- NOTE | 2024-08-14 13:22 | ECG_ITS ---
APPROVED REPORT Exam: Resting ECG HR:75 bpm ECG Measurements Heart Rate 75 AXES [place] 144 P 33 QRSd 98 QRS 70 QT 343 T 32 QTc 371 Conclusion SINUS RHYTHM NORMAL ECG UNCONFIRMED REPORT Electronically signed by : Ge Simmons, 08/14/2024 15:23:27
--- NOTE | 2024-08-14 13:23 | PC.NURSE ---
FSBS was 95 at 1:22pm
[2024-08-14 13:24] VITALS: BP 141/89; PULSE 80; RESP 13; O2SAT 99
[2024-08-14 13:30] VITALS: BP 140/97; BP 146/84; PULSE 80; RESP 13; TEMP 36.9; O2SAT 99; BMI 29.9
--- NOTE | 2024-08-14 13:43 | CT_ITS ---
FINAL REPORT TECHNIQUE: Noncontrast exam. Coronal and sagittal images were obtained and reviewed. This study was performed with techniques to keep radiation doses as low as reasonably achievable, (ALARA). Individualized dose reduction techniques using automated exposure control or adjustment of mA and/or kV according to the patient''s size were employed. CLINICAL HISTORY: recurrect seizures COMPARISON: 08/08/2022 FINDINGS: No abnormal density is seen. Ventricles are normal. There is no hemorrhage. No mass effect is seen. Of the MCAs are hyperdense bilaterally. However, this finding was present on the prior exam. Bone windows show no evidence of fracture. IMPRESSION: No acute findings. Reviewed, Interpreted and Dictated by Brandy Back MD Transcribed by Amber Gomez Authenticated and [facility]
--- NOTE | 2024-08-14 13:45 | HMH.EDGENADL ---
Discharge Plan Disposition Patient Disposition: Home, Self-Care Prescriptions Prescriptions: New levetiracetam [Keppra] 500 mg tablet 500 mg PO BID 30 Days Qty: 60 0RF No Action dapagliflozin propanediol [Farxiga] 10 mg tablet 10 mg PO DAILY Qty: 30 3RF Entresto 24-26 mg tablet See Rx Instructions .ROUTE .COMPLEX Qty: 60 5RF Dose Instruction: TAKE ONE TABLET BY MOUTH 2 TIMES A DAY Rx Instructions: TAKE ONE TABLET BY MOUTH 2 TIMES A DAY bisoprolol fumarate 5 mg tablet See Rx Instructions .ROUTE .COMPLEX Qty: 90 3RF Dose Instruction: TAKE ONE TABLET BY MOUTH EVERY DAY Rx Instructions: TAKE ONE TABLET BY MOUTH EVERY DAY Referrals Follow up/Referrals: Provider,Referral, MD [Referring] - See instructions Activity Restrictions/Add. Instructions Additional Instructions/Restrictions: Your recurrent seizures today are most likely new diagnosis of epilepsy. We tried to get you into multiple hospitals but given the fact that you are very stable were already on seizure precautions I feel that it is appropriate for you to follow-up outpatient. We have started you on antiepileptic medications. Please continue seizure precautions as discussed. Return with any worsening symptoms. Otherwise I recommend that you make an outpatient appointment over the next several weeks with a neurologist at the healthcare system of your choice. Clinical Impressions Clinical Impression: Seizure Instructions Patient Instructions: DI for Seizure Disorder -- Adult, DI for Seizure (Not Epilepsy/Seizure Disorder), DI for Seizure Disorder -- Child Print Language Print Language: Slovak Discharge ED Provider: Mendy Simmons General Adult HPI General Chief complaint: Seizure Stated complaint: seziure Time Seen by Provider: 08/14/24 13:31 Mode of Arrival: EMS Source of Information: Patient Description of Symptoms (Recalled from ER Triage Doc. by RN): pt presents to ED for seizure like activity. pt reports he was sitting in the passenger seat while his girlfriend was driving. girlfriend reports seizure lasted 30 minutes. no loss of bladder or bowels, pt reports he did not bite his tongue. pt does have history of seizure but does not take medications. EMS report pt was A&Ox4 upon arrival to scene. pt with no complaints. glucose 95 at bedside History of Present Illness HPI narrative: Patient is a 19-year-old male presenting today with seizure-like activity. States that he was in the car with his girlfriend she noted that he lost consciousness with shaking and took 10 to 15 minutes to wake up after his shaking episode stopped. He did not urinate on himself or bite his tongue. He has had 10 such episodes in the last year to year and a half. He was evaluated by neurology in 2022 here had a brain MRI which showed some white matter abnormalities but was not felt to have likely presyncopal or vasovagal syncopal episodes and did not seizures at the time but did not have extensive evaluation or workup beyond that. No injuries to his knowledge. Denies any heavy alcohol use does occasionally smoke THC pens but states that this has not changed recently. No other drug use he does have ADHD and no amphetamine use on top of that. Has not been on any antiepileptic medications is never diagnosed with epilepsy in the past. He has no current complaints right now. He is accompanied by his grandmother who gives further history and states that these 10 episodes he has had the last year to year and a half have all been similar generalized tonic-clonic shaking no loss of consciousness prolonged postictal state. Related Data Previous Rx's ?Medication ?Instructions ?Recorded sacubitril 24 mg-valsartan 26 mg See Rx Instructions .Route 12/31/23 tablet (Entresto) .COMPLEX #60 tabs Farxiga 10 mg tablet 10 mg PO DAILY #30 tabs 07/07/24 (dapagliflozin propanediol) bisoprolol fumarate 5 mg tablet See Rx Instructions .Route 08/07/24 .COMPLEX #90 tabs levetiracetam 500 mg tablet 500 mg PO BID 30 days #60 tabs 08/14/24 (Keppra) Allergies Allergy/AdvReac Type Severity Reaction Status Date / Time adhesive Allergy Hives Verified 07/16/24 09:08 [facility] Disclaimer: The information contained in this section may have been updated after the patient was seen, as this information can be updated by other users. Medical History (Updated 08/14/24 @ 13:44 by Mendy Simmons MD) Palpitations Abnormal findings on diagnostic imaging of heart and coronary circulation HFrEF (heart failure with reduced ejection fraction) Daytime somnolence Snoring ASD (atrial septal defect) Abnormal computed tomography angiography (CTA) Cardiomyopathy Syncope Orthostatic hypotension Pulmonary valve regurgitation Diastolic dysfunction Burning chest pain Chest pain Systolic heart failure Abnormal electrocardiogram [ECG] [EKG] Asthma Surgical History No history of previous surgery Family History Other Alcoholism Diabetes Family history of heart disease Stroke Social History (Updated 07/16/24 @ 09:21 by Radha Mathews, RN) Smoking Status: Current every day smoker alcohol intake: never substance use type: marijuana current occupational status: unemployed Travel in the last 8 weeks: None household members: family housing: house marital status: single caffeine: Yes Have you lived/traveled outside US in past 30 days?: No Contact w/someone who lives/traveled outside US past 30 days?: No Exposure to someone with infectious disease in past 14 days?: No Do you have a fever (greater than 100.4 F or 38 C)?: No Have you tested positive for COVID-19: No Exposed to someone with COVID-19 in past 14 days?: No Do you have a sore throat?: No Do you have a cough?: No Do you have any weakness?: No Do you have any diarrhea?: No Are you experiencing any unusual bleeding?: No Do you have any muscle aches/pain?: No Do you have any abdominal pain?: No Are you experiencing loss of taste or smell?: No Other Medical History Have you received the Flu Vaccine for this season: No Have you received the Pneumonia Vaccine: No ROS Obtained: Yes All systems reviewed & no additional complaints except as documented Physical Exam General General appearance: alert and in no apparent distress Respiratory Respiratory exam: Present normal lung sounds bilaterally Cardiovascular Cardiovascular exam: Present regular rate and normal rhythm Neurological Exam Neurological exam: Present alert, oriented X3, CN II-XII intact and normal gait; Absent motor sensory deficit Medical Decision Making Medical Records Screening: Per USPSTF and CDC recommendations, given the prevalence of disease in our region, it is our hospital?s policy to screen for HIV and viral Hepatitis for all patients aged 18 and over and those with ongoing risk factors. Alin Inquiry Pt receiving controlled substance: No Vital Signs: 08/14/24 13:22 08/14/24 13:24 08/14/24 13:30 Temperature 98.4 F Temperature Source Oral Pulse Rate 76 80 Pulse Rate [Left Radial] 80 Respiratory Rate 13 13 Blood Pressure 140/97 H 141/89 H Blood Pressure [Right Arm] 140/97 H Blood Pressure Mean [Right Arm] 111 Blood Pressure Source [Right Arm] Automatic Cuff Blood Pressure Position [Right Arm] Sitting 02 Sat by Pulse Oximetry 99 99 99 Oxygen Delivery Method Room Air Room Air Room Air 08/14/24 13:30 08/14/24 14:00 08/14/24 14:30 Temperature Temperature Source Pulse Rate 80 76 Pulse Rate [Left Radial] Respiratory Rate 13 15 19 Blood Pressure 146/84 H 130/69 123/63 Blood Pressure [Right Arm] Blood Pressure Mean [Right Arm] Blood Pressure Source [Right Arm] Blood Pressure Position [Right Arm] 02 Sat by Pulse Oximetry 99 100 99 Oxygen Delivery Method Room Air Room Air Room Air Lab Data Lab results reviewed: Yes I reviewed the patient's lab results. Lab Results 08/14/24 13:20: WBC 8.3, RBC 5.89, Hct 50.8, MCV 86.2, MCH 31.4 H, MCHC 36.4 H, RDW 11.5, Plt Count 183, MPV 11.1 H, Neut % (Auto) 75.8, Lymph % (Auto) 14.5, [place] % (Auto) 7.4, Eos % (Auto) 1.6, Baso % (Auto) 0.5, Neut # (Auto) 6.3, Lymph # (Auto) 1.2, [place] # (Auto) 0.6, Eos # (Auto) 0.1, Baso # (Auto) 0.0, Sodium 139, Potassium 4.5, Chloride 102, Carbon Dioxide 28, Anion Gap 13.5, BUN 19, Creatinine 1.00, Estimated Creat Clear 161, Estimated GFR 94, Est GFR ( Amer) 114, Glucose 104 H, Calcium 10.9 H, Total Bilirubin 1.3, AST 38, ALT 24, Alkaline Phosphatase 97, Troponin I 0.01, Total Protein 9.7 H, Albumin 5.7 H, Globulin 4.0 H, Albumin/Globulin Ratio 1.4, Plasma/Serum Alcohol < 10 08/14/24 13:20 08/14/24 13:20 Orders (Tests/Meds): ED MEDICATIONS Discontinued Medications Generic Name Dose Route Start Last Admin Trade Name Freq PRN Reason Stop Dose Admin Acetaminophen 1,000 mg 08/14/24 13:59 08/14/24 14:05 Acetaminophen 500mg Tab PO 08/14/24 14:00 1,000 mg ONCE ONE Administration Lactated Ringer's 1,000 mls @ 999 mls/hr 08/14/24 13:45 08/14/24 14:05 Lactated Ringer's 1000 Ml Bag IV 08/14/24 14:45 999 mls/hr .Q1H1M JORDY Administration Levetiracetam 2,000 mg/ Sodium 120 mls @ 240 mls/hr 08/14/24 13:42 08/14/24 14:21 Chloride IV 08/14/24 13:43 240 mls/hr ONCE ONE Administration ORDERS Category Date Time Status CT head/brain wo con Stat Cat Scan 08/14/24 13:43 Taken CBC w/Auto Diff [Complete Blood Count Auto Diff] Stat Lab 08/14/24 13:20 Results CMP [Comprehensive Metabolic Panel] Stat Lab 08/14/24 13:20 Completed Ethanol [Ethyl Alcohol] Stat Lab 08/14/24 13:20 Completed Trop I [Troponin I] Stat Lab 08/14/24 13:20 Completed Troponin I Q3H Lab 08/14/24 16:45 Ordered Troponin I Q3H Lab 08/14/24 19:45 Ordered UDS [Drug Screen,Urine] Stat Lab 08/14/24 13:42 Ordered Medical Decision Narrative: 19-year-old with GCS of 15 normal neurologic exam that is nonfocal well-appearing. His history certainly sounds like he is having recurrent seizures and likely has epilepsy. Will start him on Keppra IV. This is the 10th such episode he is had in the last year to year and a half. I believe that this patient needs further neurologic evaluation at this point which we do not have at [facility]. I will get a CT scan of his head get basic blood work patient is currently on seizure precautions I will discuss the case with neurology I do surrounding hospital see if they be willing to evaluate him and patient to get EEG monitoring etc. CT scan was performed which I personally interpreted which shows no evidence of any intracranial pathology. Labs otherwise unremarkable patient remained stable for several hours in the emergency department serial neurologic exams are normal. We called multiple healthcare systems including [facility] and [facility] and they were unable to take the patient due to capacity related issues. I subsequently spoke with the family he has been having seizures for several years at this point has just not been started on antiepileptic medications. He is already been on seizure precautions very comfortable with that. He is back to his baseline has been for several hours I do not suspect alternative diagnosis at this point. No evidence of any type of withdrawal or toxidrome. He was loaded with Keppra I sent in the prescription of 500 twice daily of Keppra to his pharmacy advised that he follow-up outpatient with a neurologist to best of his ability and return with any worsening or ongoing symptoms. We did consider hospitalization but at this point most the hospitals around us are full and family opted to go home and try to have outpatient follow-up. Patient was discharged in stable condition. Critical Care Critical Care Time Critical Care Time: No
--- NOTE | 2024-08-14 13:49 | PC.NURSE ---
pt left room to go for CT scan
[2024-08-14 13:50] LABS: Basophils % 0.5 % (0.1-2.0); Eosinophils # 0.1 K/mm3 (0.0-0.4); Eosinophils % 1.6 % (0.1-12.0); Hematocrit 50.8 % (42.0-52.0); Lymphocytes # 1.2 K/mm3 (0.7-4.5); Lymphocytes % 14.5 % (10-50); Mean Corpuscular HGB Conc 36.4 g/dL (31.8-35.4); Mean Corpuscular Hemoglobin 31.4 pg (27.0-31.2); Mean Corpuscular Volume 86.2 fl (80-94); Mean Platelet Volume 11.1 fl (7.4-10.4); Monocytes # 0.6 K/mm3 (0.1-1.0); Monocytes % 7.4 % (1.7-9.3); Neutrophils # 6.3 K/mm3 (1.8-7.8); Neutrophils % 75.8 % (37.0-80.0); Platelet Count 183 K/mm3 (142-424); Red Blood Count 5.89 M/mm3 (4.60-6.20); Red Cell Distribution Width 11.5 % (11.5-17.5)
[2024-08-14 13:54] LABS: Albumin Level 5.7 g/dl (3.5-5.0); Chloride 102 mmol/L (98-107); Sodium 139 mmol/L (136-145)
[2024-08-14 13:55] LABS: Potassium 4.5 mmoL/L (3.5-5.1)
[2024-08-14 13:57] LABS: Alanine Aminotransferase 24 U/L (12-78); Albumin/Globulin Ratio 1.4 (1.1-1.8); Alkaline Phosphatase 97 U/L (38-126); Anion Gap 13.5 mEq/L (5-15); Aspartate Amino Transferase 38 U/L (17-59); Bilirubin,Total 1.3 mg/dl (0.2-1.3); Blood Urea Nitrogen 19 mg/dl (9-20); Carbon Dioxide 28 mmol/L (22.0-30.0); Creatinine Clearance Estimated 161 mL/min (50-200); Estimated Glomerular Filt Rate 94 ml/min (>60); GFR (African American) 114 ML/MIN (>60); Total Protein,Serum 9.7 g/dl (6.3-8.2)
--- NOTE | 2024-08-14 13:57 | PC.NURSE ---
pt back from CT scan and in room
[2024-08-14 13:58] LABS: Calcium 10.9 mg/dl (8.4-10.2); Glucose 104 mg/dl (74-100)
[2024-08-14 14:00] VITALS: BP 130/69; PULSE 80; RESP 15; O2SAT 100
[2024-08-14 14:02] LABS: Ethyl Alcohol < 10 mg/dl (0-10)
[2024-08-14] MEDS: LACTATED RINGERS 1000ML 1,000 ML 999 ML IV (14:05)
[2024-08-14] MEDS: ACETAMINOPHEN 500MG TAB 1000 MG PO (14:05)
[2024-08-14] MEDS: levETIRAcetam 2,000 MG in 0.9 % SODIUM CHLORIDE 100 ML 240 MG IV (14:21)
[2024-08-14 14:24] LABS: Troponin I 0.01 ng/ml (0.00-0.034)
[2024-08-14 14:26] LABS: White Blood Count 8.3 K/mm3 (4.8-10.8)
--- NOTE | 2024-08-14 14:26 | PC.NURSE ---
pt provided urinal to give urine sample
[2024-08-14 14:30] VITALS: BP 123/63; PULSE 76; RESP 19; O2SAT 99
[2024-08-14 15:07] LABS: Hemoglobin 18.5 g/dL (14.1-18.0)
[2024-08-14 15:14] VITALS: BP 125/74; PULSE 69; RESP 15; TEMP 36.6; O2SAT 98
== END 2024-08-14 15:16 | disposition home or self-care (01) ==
PROVIDERS: Emergency Provider Student in an Organized Health Care Education/Training Program; PCP Internal Medicine
DX: R56.9 Unspecified convulsions (principal)
CPT/HCPCS: 70450; 80053; 80320; 84484; 85025; 93005; 96361; 96374; 99285; G0480; J1953; J7120

== ENCOUNTER 2025-01-02 19:25 | Emergency (ER) | payer OTHER, SELFPAY ==
[2025-01-02] VITALS (8 sets, daily range): BP systolic 107–141; BP diastolic 51–74; PULSE 49–69; RESP 11–16; TEMP 36.7–37.1; O2SAT 98–100; BMI 26.4
--- OUTSIDE RECORDS SUMMARY | 2025-01-02 19:40 | XMS_ITS | Clinical Summary ---
Author Organization [facility] Address [address] [place] [address] Care Team Providers Care Journeyman Powerhouse Operator Name Role Phone Unavailable Primary Care Provider Unavailabl e Social History Tobacco Use Types Packs/Day Years Used Date Smoking Tobacco: Never Assessed Sex and Gender Information Value Date Recorded Sex Assigned at Not on file Legal Sex Male 1:38 PM EDT Gender Identity Not on file Sexual Orientation Not on file Plan of Treatment Health Maintenance Due Date Last Done Comments HIV Screening 2003 Hepatitis C Screening 2003 MMR Vaccines (1 of 1 - Stand jaqueline series) 2004 Varicella Vaccines (1 of 2 - 13+ 2-dose series) 2016 HPV Vaccines (1 - Male 3-dos e series) 2018 Meningococcal B Vaccine (1 o f 2 - Standard) 2019 Hepatitis B Screening 2021 DTaP/Tdap/Td Vaccines (1 - Tdap) 2022 Hepatitis B Vaccines (1 of 3 - 19+ 3-dose series) 2022 COVID-19 Vaccine (1 - 2023-2 5 season) 2024 Depression Risk Screening 06/11/2024 SDOH Screening 06/11/2024 Influenza Vaccine (#1) 2025 Zoster Vaccines (1 of 2) 2053 HIB Vaccines Aged Out No longer eligi ble based on patient's age to complete this topic Hepatitis A Vaccines Aged Out No long er eligible based on patient's age to complete this topic IPV Vaccines Aged Out No longer eligi ble based on patient's age to complete this topic Meningococcal Vaccine Aged Out No gena omero eligible based on patient's age to complete this topic Pneumococcal Vaccine Aged Out No long er eligible based on patient's age to complete this topic Rotavirus Vaccines Aged Out No longer eligible based on patient's age to complete this topic Insurance [facility]
--- OUTSIDE RECORDS SUMMARY | 2025-01-02 19:40 | XMS_ITS | Clinical Summary ---
Author Organization Healthcare Address [address] [place] [address] Care Team Providers Care Bait Tier Name Role Phone Adiel Beltre DO Primary Care Provider [phone] Encounters Date Type Department Care Team Description 10/16/2024 Community Orders Community [facility] [address] [place] [address] Aaron Velasquez, DMD Extraction of tooth needed (Primary Dx) from Last 3 Months Immunizations Immunization Administration Dates Next Due DTaP 11/30/2004,05/20/2004,02/23/2004 ,2003 Hep A, ped/adol, 2 dose 12/28/2017 Hep B, Adolescent or Pediatric 02/23/2004,2003,2003 HiB, unspecified 07/29/2004,05/20/2004, 4,2003 IPV 12/28/2017,05/20/2004,02/23/2004 ,2003 MMR 12/28/2017,07/29/2004 Meningococcal MCV4P 01/03/2016 Tdap 01/03/2016 Varicella 01/03/2016,07/29/2004 Family History Medical History Relation Name Comments Conversions - Other Father Brain st em hemorrhage ADD / ADHD Other 1 Conversions - Other Other 2 behavior problem Cardiac disorder Other 3 Diabetes Other 4 Hypertension Other 5 Kidney disease Other 6 Migraines Other 7 Seizures Other 8 Conversions - Other Other 9 FHx: men gita illness Hyperlipidemia Other 10 Relation Name Status Comments Father Other 1 Other 2 Other 3 Other 4 Other 5 Other 6 Other 7 Other 8 Other 9 Other 10 Social History Tobacco Use Types Packs/Day Years Used Date Smoking Tobacco: Passive Smo ke Exposure - Never Smoker Sex and Gender Information Value Date Recorded Sex Assigned at Not on file Legal Sex Male 8:58 PM EDT Gender Identity Not on file Sexual Orientation Not on file Last Filed Vital Signs Vital Sign Reading Time Taken Comments Blood Pressure 108/64 11/09/2022 3:57 PM EDT Pulse 96 11/09/2022 3:57 PM EDT Temperature - - Respiratory Rate - - Oxygen Saturation - - Inhaled Oxygen Concentration - - Weight 96.2 kg (212 lb) 11/09/2022 3:57 PM EDT Height 167.6 cm (5' 6 ) 11/09/2022 3:57 PM EDT Body Mass Index 34.22 11/09/2022 3:57 PM EDT Plan of Treatment Upcoming Encounters Date Type Department Care Team (Late st Contact Info) Description 03/23/2025 8:00 AM EDT Consult [place] [facility] [address] [place] [address] Ingrid Morgan, HEDDLER [address] [place] [address] Health Maintenance Due Date Last Done Comments [facility]-Depression Screening 2003 [facility]-/Child/Adol SDOH Screenings 2003 HPV Vaccines (1 - Male 3-dose series) 2018 [facility]- SDOH Screenings 2021 [facility]-Adult SDOH Screenings 2021 [id number] Vaccine (1 - season) 2024 [facility]-Influenza Vaccine (#1) 2025 07/02/2009, [facility]-DTaP,Tdap,and Td Vaccines (7 - Td or Tdap) 01/02/2026 01/03/2016, 12/19/2007, 11/30/2004, Additional history exists [facility]-Zoster Vaccines (1 of 2) 2053 01/03/2016, 07/29/2004 [facility]-Hepatitis B Vaccines Completed 004, 2003, 2003 [facility]-HIB Vaccines Completed 07/29/2004, 03/2004, 02/23/2004, Additional history exists [facility]-Varicella Vaccines Completed 01/03/2016, 2004 [facility]-IPV Vaccines Completed 12/28/2017, 03/2008, 05/20/2004, Additional history exists [facility]-Hepatitis A Vaccines Completed 10/07/2018, 12/10 [facility]-Pneumococcal Vaccine: Pediatrics (0 to 5 Years) and At-Risk Patients (6 to 49 Years) Aged Out No longer eligible based on patient's age to complete this topic [facility]-Rotavirus Vaccines Aged Out No lo nger eligible based on patient's age to complete this topic Insurance [facility] [facility] MEDICAID [place] [employer] Care Teams Bait Tier Relationship Specialty Start Date End Date Adiel Beltre DO [address] [place] [address] [place] [address] PCP - General 09/09/24
--- OUTSIDE RECORDS SUMMARY | 2025-01-02 19:40 | XMS_ITS | Encounter Summary ---
Author Organization Healthcare Address [address] [place] [address] Care Team Providers Care Farm Machinery Assembler Name Role Phone Coni Beltreew Aishwarya MODI Primary Care Provider [phone] Reason for Referral * Consultation (Routine) - Authorized Specialty Diagnoses / Procedures Referred By Contsylvester t Referred To Contact Oral Surgery Diagnoses Extraction of tooth needed Aaron Velasquez DMD [address] [place] [address] Phone: tel: fax: [facility] paint department supervisor [facility] [address] [place] [address] [address] [place] [address] Phone: tel: Referral ID Status Reason Start Date Expiration Date Visits Requested Visits Authorized [id number] Authorized Specialty Services Required 10/16/2024 04/17/2026 1 1 Encounter Details Date Type Department Care Team ([facility] Contact Info) Description 10/16/2024 Community [facility] [address] [place] [address] Aaron Velasquez DMD [address] [place] [address] Extraction of tooth needed (Primary Dx) Social History Tobacco Use Types Packs/Day Years Used Date Smoking Tobacco: Passive Smo ke Exposure - Never Smoker Sex and Gender Information Value Date Recorded Sex Assigned at Not on file Legal Sex Male 8:58 PM EDT Gender Identity Not on file Sexual Orientation Not on file documented as of this encounter Plan of Treatment Upcoming Encounters Date Type Department Care Team (Late st Contact Info) Description 03/23/2025 8:00 AM EDT Consult [place] [facility] [address] [place] [address] Ingrid Morgan, DIRECTOR TREASURER [address] [place] [address] Scheduled Referrals Name Type Priority Associated Diagnoses Order Schedule Ambulatory referral to Oral Maxillofacial Surgery Outpatient Referral Routine Extraction of tooth needed Ordered: 10/16/2024 documented as of this encounter Visit Diagnoses Diagnosis Extraction of tooth needed- Primary documented in this encounter Care Teams Farm Machinery Assembler Relationship Specialty Start Date End Date Adiel Beltre DO [address] [place] [address] PCP - General 09/09/24 documented as of this encounter
--- NOTE | 2025-01-02 19:48 | CT_ITS ---
PROCEDURE INFORMATION: Exam: CT Head Without Contrast Exam date and time: 01/02/2025 8:12 PM Age: 19 years old Clinical indication: Injury or trauma; Other: Fall, seizure TECHNIQUE: Imaging protocol: Computed tomography of the head without contrast. Radiation optimization: All CT scans at this facility use at least one of these dose optimization techniques: automated exposure control; mA and/or kV adjustment per patient size (includes targeted exams where dose is matched to clinical indication); or iterative reconstruction. COMPARISON: CT HEAD/BRAIN WO CON 08/14/2024 1:54 PM FINDINGS: Brain: No hemorrhage. Unremarkable white matter. No mass effect. Cerebral ventricles: No ventriculomegaly. Paranasal sinuses: Visualized sinuses are unremarkable. No fluid levels. Mastoid air cells: Visualized mastoid air cells are well aerated. Bones: Unremarkable. No acute fracture. Soft tissues: Unremarkable. IMPRESSION: No acute intracranial abnormality.
--- NOTE | 2025-01-02 19:48 | XR_ITS ---
PROCEDURE INFORMATION: Exam: XR Chest Exam date and time: 01/02/2025 8:14 PM Age: 19 years old Clinical indication: Other: Seizure TECHNIQUE: Imaging protocol: Radiologic exam of the chest. Views: 1 view. COMPARISON: CR XR CHEST PORTABLE 06/16/2024 5:08 AM FINDINGS: Lungs: Unremarkable. No consolidation. Pleural spaces: Unremarkable. No pleural effusion. No pneumothorax. Heart/Mediastinum: Unremarkable. No cardiomegaly. Bones/joints: Unremarkable. IMPRESSION: No acute findings.
--- NOTE | 2025-01-02 19:54 | ED_ITS ---
Discharge Plan Disposition Patient Disposition: Home, Self-Care Prescriptions Prescriptions: New levetiracetam [Keppra] 500 mg tablet 1,000 mg PO BID 30 Days Qty: 120 0RF Discontinued levetiracetam [Keppra] 500 mg tablet 500 mg PO BID 30 Days Qty: 60 0RF No Action Entresto 24-26 mg tablet See Rx Instructions .ROUTE .COMPLEX Qty: 60 5RF Dose Instruction: TAKE ONE TABLET BY MOUTH 2 TIMES A DAY Rx Instructions: TAKE ONE TABLET BY MOUTH 2 TIMES A DAY dapagliflozin propanediol [Farxiga] 10 mg tablet 10 mg PO DAILY Qty: 30 3RF bisoprolol fumarate 5 mg tablet See Rx Instructions .ROUTE .COMPLEX Qty: 90 3RF Dose Instruction: TAKE ONE TABLET BY MOUTH EVERY DAY Rx Instructions: TAKE ONE TABLET BY MOUTH EVERY DAY Referrals Follow up/Referrals: Provider,Referral, MD [Primary Care Provider, Medical] - See instructions Activity Restrictions/Add. Instructions Additional Instructions/Restrictions: It is very important that you take your Keppra as prescribed. We are increasing your Keppra to 1000 mg twice daily. [facility] will contact you over the next few business days to schedule an appointment within the next week or 2. I do recommend that you follow-up with your primary care physician before this appointment to get an MRI per the [facility] recommendations. If you develop any new or worsening symptoms, such as continued frequent seizures, or if you become concerned for your health for any reason, return to the emergency department for evaluation. Ensure that you sleep well as not sleeping well can make seizures more likely. Due to being evaluated emergency department for seizure-like activity today, you must stop driving immediately. Per [place] law, you must be seizure-free for at least 90 days. Please follow-up with your family doctor or your neurologist prior to then to be cleared for driving. Do not swim alone or go swimming with no sleeve tailor, operate heavy machinery, or lock the bathroom door while bathing. Do not undertake activities such as water sports, climbing, or where there is injury if you were to fall. Do not bathe children by yourself Clinical Impressions Clinical Impression: Seizure Instructions Patient Instructions: DI for Seizure Disorder -- Adult, DI for Seizure (Not Epilepsy/Seizure Disorder), DI for Seizure Disorder -- Child Print Language Print Language: Hebrew Discharge ED Provider: Karsner,Ajit General Adult HPI General Chief complaint: Seizure Stated complaint: Seizure Time Seen by Provider: 01/02/25 19:35 Mode of Arrival: EMS Source of Information: Patient and EMS Description of Symptoms (Recalled from ER Triage Doc. by RN): pt presents to the ed D/T complaints of family witnessing seizure going on 20 mins. pt had seizure in route with ems, 5 mg of versed given. ems reports hx of seizure for patient and is on and off non compliant with meds. ems reports post ictal and more of tonic seizures. History of Present Illness HPI narrative: Reji De León is a 19-year-old male with past medical history of seizures, heart issues who takes bisoprolol, Farxiga and Keppra who presents to the emergency department via EMS for seizure. Per EMS, reportedly patient had a witnessed seizure that lasted about 20 minutes and also had a seizure en route with EMS and was given 5 mg of Versed. Patient states that he has not missed any doses of his medications. Patient is alert and oriented to self and location but not year at this time. He does appear drowsy and postictal. He denies any tongue biting or urinary incontinence. Family at the bedside states that this occurred after getting into an argument with his girlfriend. They state that he walked in the front door, stopped in his tracks and then fell to the floor and became stiff and unresponsive . They state that this lasted 10 minutes. They report that he has had increased seizure frequency over the last few weeks. They are unable to quantify how many seizures he has had but states that it is many and prior to this he had only had 1 or 2 over the past couple of months. They state that this can happen when at rest and is not always when he is in an argument, agitated or anxious. Patient has no complaints at this time. Related Data Previous Rx's ?Medication ?Instructions ?Recorded Farxiga 10 mg tablet 10 mg PO DAILY #30 tabs 08/10 12/03 (dapagliflozin propanediol) bisoprolol fumarate 5 mg tablet See Rx Instructions .R oute 09/03/24 .COMPLEX #90 tabs sacubitril 24 mg-valsartan 26 mg See Rx Instructions . Route 09/03/24 tablet (Entresto) .COMPLEX #60 tabs levetiracetam 500 mg tablet 1,000 mg (2 x 500 mg) PO B ID 1 01/02/25 (Keppra) month #120 tabs Allergies Allergy/AdvReac Type Severity Reaction Status Date / Time adhesive Allergy Hives Verified 09/03/24 13:36 [facility] Disclaimer: The information contained in this section may have been updated after the patient was seen, as this information can be updated by other users. Medical History Palpitations Abnormal findings on diagnostic imaging of heart and coronary circulation HFrEF (heart failure with reduced ejection fraction) Daytime somnolence Snoring ASD (atrial septal defect) Abnormal computed tomography angiography (CTA) Cardiomyopathy Syncope Orthostatic hypotension Pulmonary valve regurgitation Diastolic dysfunction Burning chest pain Chest pain Systolic heart failure Abnormal electrocardiogram [ECG] [EKG] Asthma Surgical History No history of previous surgery Family History Other Alcoholism Diabetes Family history of heart disease Stroke Social History Smoking Status: Never smoker alcohol intake: never substance use type: marijuana current occupational status: unemployed Travel in the last 8 weeks?: None household members: family housing: house marital status: single caffeine: Yes Have you lived/traveled outside US in past 30 days?: No Contact w/someone who lives/traveled outside US past 30 days?: No Exposure to someone with infectious disease in past 14 days?: No Do you have a fever (greater than 100.4 F or 38 C)?: No Have you tested positive for COVID-19?: No Exposed to someone with COVID-19 in past 14 days?: No Do you have a sore throat?: No Do you have a cough?: No Do you have any weakness?: No Do you have any diarrhea?: No Are you experiencing any unusual bleeding?: No Do you have any muscle aches/pain?: No Do you have any abdominal pain?: No Are you experiencing loss of taste or smell?: No Other Medical History Have you received the Flu Vaccine for this season: No Have you received the Pneumonia Vaccine: No ROS Obtained: Yes Systems reviewed as appropriate & no additional complaints except as documented Physical Exam General General appearance: alert and in no apparent distress Comment: somnolent but easily wakened with verbal stimuli Head Head exam: atraumatic Eye Eye exam: Present normal appearance ENT ENT exam: Present normal external ear exam Neck Neck exam: Present full ROM Chest Chest inspection: Present symmetric chest wall rise Respiratory Respiratory exam: Present normal lung sounds bilaterally; Absent respiratory distress, wheezes or stridor Cardiovascular Cardiovascular exam: Present regular rate and normal rhythm Abdominal Exam Abdominal exam: Present soft; Absent tenderness or guarding exam: Present deferred Extremities Exam Extremities exam: Present normal inspection Back Exam Back exam: Present normal inspection Neurological Exam Neurological exam: Present alert, CN II-XII intact and other (Nonfocal neurological exam, following commands appropriately); Absent oriented X3 (Oriented to self and location but believes the year is 2023) or motor sensory deficit Psychiatric Psychiatric exam: Present normal affect Skin Skin exam: Present warm and dry Medical Decision Making Medical Records Screening: Per USPSTF and CDC recommendations, given the prevalence of disease in our region, it is our hospital?s policy to screen for HIV and viral Hepatitis for all patients aged 18 and over and those with ongoing risk factors. Alin Inquiry Pt receiving controlled substance: No Vital Signs: 01/02/25 19:25 01/02/25 20:00 01/02/25 20:31 Temperature 98.7 F Temperature Source Oral Pulse Rate 65 60 Pulse Rate [Right Radial] 69 Respiratory Rate 13 13 11 L Blood Pressure 107/63 L 119/58 L Blood Pressure [Right Arm] 109/68 L Blood Pressure Mean Blood Pressure Mean [Right Arm] 81 Blood Pressure Position Blood Pressure Position [Right Arm] Supine 02 Sat by Pulse Oximetry 98 99 99 Oxygen Delivery Method Room Air 01/02/25 21:03 01/02/25 21:31 01/02/25 22:01 Temperature Temperature Source Pulse Rate 58 L 49 L 63 Pulse Rate [Right Radial] Respiratory Rate 11 L 14 16 Blood Pressure 141/71 H 122/51 L 121/74 Blood Pressure [Right Arm] Blood Pressure Mean Blood Pressure Mean [Right Arm] Blood Pressure Position Blood Pressure Position [Right Arm] 02 Sat by Pulse Oximetry 99 100 100 Oxygen Delivery Method Room Air Room Air Room Air 01/02/25 22:30 01/02/25 22:46 Temperature 98.0 F 98.0 F Temperature Source Oral Pulse Rate 54 L 54 L Pulse Rate [Right Radial] Respiratory Rate 16 16 Blood Pressure 108/65 L 108/65 L Blood Pressure [Right Arm] Blood Pressure Mean 79 Blood Pressure Mean [Right Arm] Blood Pressure Position Supine Blood Pressure Position [Right Arm] 02 Sat by Pulse Oximetry 98 Oxygen Delivery Method Room Air Lab Data Lab Results 01/02/25 19:25: WBC 7.1, RBC 5.14, Hgb 16.3, Hct 43.8, MCV 85.2, MCH 31.7 H, M CHC 37.2 H, RDW 11.3 L, Plt Count 162, MPV 11.1 H, Neut % (Auto) 81.8 H, Lymph % (Auto) 9.8 L, [place] % (Auto) 6.0, Eos % (Auto) 1.7, Baso % (Auto) 0.4, Neut # (Auto) 5.8, Lymph # (Auto) 0.7, [place] # (Auto) 0.4, Eos # (Auto) 0.1, Baso # (Auto) 0.0, Sodium 133 L, Potassium 3.5, Chloride 102, Carbon Dioxide 23, Anion Gap 11.5, BUN 20, Creatinine 0.80, Estimated Creat Clear 187, Estimated GFR 122, Est GFR ( Amer) 148, Glucose 96, Calcium 9.2, Phosphorus 3.7, Magnesium 1.8, Total Bilirubin 1.0, AST 29, ALT 17, Alkaline Phosphatase 85, Total Creatine Kinase 108, Total Protein 8.1, Albumin 5.0, Globulin 3.1, Albumin/Globulin Ratio 1.6 01/02/25 20:50: VBG pH 7.30 L, VBG pCO2 49.7, VBG pO2 31.0, VBG HCO3 23.7, VBG Total CO2 25.3, VBG O2 Saturation 57.8, VBG Base Excess -3.4 L, VBG Lactic Acid 0.9 01/02/25 21:55: Urine Color Yellow, Urine Appearance Clear, Urine pH 6.0, Ur Specific [place] 1.020, Urine Protein 1+ A, Urine Glucose (UA) 2+, Urine Ketones Negative, Urine Blood Trace-l, Urine Nitrate Negative, Urine Bilirubin Negative, Urine Urobilinogen 1.0, Ur Leukocyte Esterase Negative, Urine RBC Occasional, Urine WBC Occasional, Urine Opiates Screen Negative, Urine Methadone Screen Negative, Ur Barbituates Screen Negative, Ur Phencyclidine Scrn Negative, Ur Amphetamines Screen Negative, U Benzodiazepines Scrn Positive H, Urine Cocaine Screen Negative, U Marijuana (THC) Screen Negative 01/02/25 19:25 01/02/25 19:25 Orders (Tests/Meds): ED MEDICATIONS Discontinued Medications Generic Name Dose Route Start Last Admin Trade Name Nancy PRN Reason Stop Dose Admin Levetiracetam 2,000 mg/ Sodium 120 mls @ 240 mls/hr 01/02/25 19:48 01/02/25 20:02 Chloride IV 01/02/25 19:49 240 mls/hr ONCE ONE Administration ORDERS Category Date Time Status CT head/brain wo con Stat Cat Scan 01/02/25 19:48 Completed CXR --portable [XR chest portable] Stat Exams 01/02/25 19:48 Completed CBC w/Auto Diff [Complete Blood Count Auto Diff] Stat Lab 01/02/25 19:25 Completed CK [Creatine Kinase] Stat Lab 01/02/25 19:25 Completed CMP [Comprehensive Metabolic Panel] Stat Lab 01/02/25 19:25 Completed Magnesium Stat Lab 01/02/25 19:25 Completed PHOS [Phosphorous] Stat Lab 01/02/25 19:25 Completed UA [Urinalysis and Microscopic] Stat Lab 01/02/25 21:55 Completed UDS [Drug Screen,Urine] Stat Lab 01/02/25 21:55 Completed VBG [Venous Blood Gas] Stat RT 01/02/25 20:50 Completed ECG Data Tracing #1: I reviewed this ECG and interpreted as documented below: Sinus bradycardia with ventricular rate of [address] elevation or depression. No inverted T waves. There is J-point elevation in lead II, aVL, V5 and V6 consistent with early repolarization. Medical Decision Narrative: Reji De León is a 19-year-old male with past medical history of seizures, heart issues who takes bisoprolol, Farxiga and Keppra who presents to the emergency department via EMS for seizure. Per EMS, reportedly patient had a witnessed seizure that lasted about 20 minutes and also had a seizure en route with EMS and was given 5 mg of Versed. Patient states that he has not missed any doses of his medications. Patient is alert and oriented to self and location but not year at this time. He does appear drowsy and postictal. He denies any tongue biting or urinary incontinence. Family at the bedside states that this occurred after getting into an argument with his girlfriend. They state that he walked in the front door, stopped in his tracks and then fell to the floor and became stiff and unresponsive . They state that this lasted 10 minutes. They report that he has had increased seizure frequency over the last few weeks. They are unable to quantify how many seizures he has had but states that it is many and prior to this he had only had 1 or 2 over the past couple of months. They state that this can happen when at rest and is not always when he is in an argument, agitated or anxious. Patient has no complaints at this time, he denies any alcohol use or recreational drug use but states that he used to smoke marijuana but has not done so recently. On arrival, patient is hemodynamically stable, in no acute respiratory distress, breathing comfortably on room air with appropriate oxygen saturation. Afebrile. Physical exam, as stated above, revealed an overall well-appearing male in no distress. He is somnolent but will wake with verbal stimuli and hold a conversation. He is mildly disoriented and believes it is 2023 but knows his name and location. He remembers getting into an argument with his girlfriend and walking in the door of the house but does not remember anything after this. His neurological exam is nonfocal. He has no cervical spine tenderness and no obvious signs of head trauma. Pupils equal round and reactive to light. Differential diagnosis includes, but is not limited to: Epilepsy, seizure disorder, medication noncompliance, electrolyte derangement, metabolic derangement, cardiac arrhythmia, intracranial hemorrhage/mass, among others. The most morbid conditions were considered and workup was based on these. Workup in the emergency department included: EKG, CT head without contrast, chest x-ray, CBC, VBG with lactate, CMP, magnesium level, urinalysis, UDS, CK, phosphorus. Patient was loaded with 2 g of IV Keppra CT head interpreted by me personally and showed no intracranial hemorrhage, mass or midline shift. See final radiology report for details. Chest x-ray was also interpreted by me personally. No pneumothorax, no focal consolidation, no widening of the mediastinum. No cardiomegaly. See radiology report for details. Laboratory workup interpreted by me personally. No leukocytosis, platelets within normal limits, pH mildly low at 7.3 but pCO2 normal at 49.7, bicarb normal at 23.7, lactate normal at 0.9. Sodium mildly low but nonactionable at 133, electrolytes otherwise within normal limits. No GREGG. Liver enzymes within normal limits. CK normal at 108. Urine with 1+ protein but no ketones, no nitrates, no leukocyte esterase and no concern for infection. UDS positive for benzos (received Versed prior to arrival) Due to increased seizure frequency, I discussed the patient's case with Dr. Hernandez with the [facility] general neurology team for further recommendations. Further recommendations, increase Keppra to 1000 mg twice daily. They will contact patient to get closer follow-up as his current appointment is in March. Follow-up will be within the next 1 to 2 weeks. They did recommend attempting to get brain MRI prior to that appointment but they will conduct EEG. On reassessment, I discussed patient's plan with patient. He had returned to his baseline and was ambulatory and able to tolerate oral intake. He was in agreement with discharge at this time with increased dose of Keppra and close follow-up with neurology. Return precautions were given. All questions were answered. He was given seizure precautions and will be going home with family at this time. Patient was then discharged from the emergency department in stable condition. Critical Care Critical Care Time Critical Care Time: Yes Attestation: On 01/02/25, the high probability of a clinically significant, sudden or life threatening deterioration of the following system(s) required my full and direct attention, intervention and personal management. The time I documented below is in addition to time spent performing reported procedures but includes the following listed in this critical care notation. Total Time Total Critical Care Time: 35
[2025-01-02 19:59] LABS: Hematocrit 43.8 % (42.0-52.0); Hemoglobin 16.3 g/dL (14.1-18.0); Immature Granulocytes % 0.3 %; Mean Corpuscular HGB Conc 37.2 g/dL (31.8-35.4); Mean Corpuscular Hemoglobin 31.7 pg (27.0-31.2); Mean Corpuscular Volume 85.2 fl (80-94); Nucleated Red Blood Cells % 0 %; Platelet Count 162 K/mm3 (142-424); Red Blood Count 5.14 M/mm3 (4.60-6.20); Red Cell Distribution Width-SD 34.6 fL; White Blood Count 7.1 K/mm3 (4.8-10.8)
[2025-01-02 20:01] LABS: Albumin Level 5.0 g/dl (3.5-5.0); Chloride 102 mmol/L (98-107); Sodium 133 mmol/L (136-145)
[2025-01-02 20:02] LABS: Potassium 3.5 mmoL/L (3.5-5.1)
[2025-01-02] MEDS: levETIRAcetam 2,000 MG in 0.9 % SODIUM CHLORIDE 100 ML 240 MG IV (20:02)
[2025-01-02 20:04] LABS: Alanine Aminotransferase 17 U/L (12-78); Albumin/Globulin Ratio 1.6 (1.1-1.8); Alkaline Phosphatase 85 U/L (38-126); Anion Gap 11.5 mEq/L (5-15); Aspartate Amino Transferase 29 U/L (17-59); Bilirubin,Total 1.0 mg/dl (0.2-1.3); Blood Urea Nitrogen 20 mg/dl (9-20); Carbon Dioxide 23 mmol/L (22.0-30.0); Creatine Kinase 108 U/L (55-170); Creatinine Clearance Estimated 187 mL/min (50-200); Creatinine,Serum 0.80 mg/dl (0.66-1.25); Estimated Glomerular Filt Rate 122 ml/min (>60); GFR (African American) 148 ML/MIN (>60); Globulin 3.1 g/dL (1.3-3.2); Phosphorous 3.7 mg/dl (2.5-4.5); Total Protein,Serum 8.1 g/dl (6.3-8.2)
[2025-01-02 20:05] LABS: Calcium 9.2 mg/dl (8.4-10.2); Glucose 96 mg/dl (74-100); Magnesium 1.8 mg/dl (1.6-2.3)
[2025-01-02 21:21] LABS: VBG HCO3 23.7 mmol/L (23-30); VBG PCO2 49.7 mmol/L (35-51); VBG PH 7.30 mmol/L (7.31-7.41); VBG PO2 31.0 mmol/L (28-40)
[2025-01-02 21:22] LABS: Lactate Venous 0.9 mmol/L (0.4-2.0)
--- NOTE | 2025-01-02 21:54 | ECG_ITS ---
APPROVED REPORT Exam: Resting ECG HR:59 bpm ECG Measurements Heart Rate 59 AXES TX 148 P 23 QRSd 108 QRS 74 QT 393 T 34 QTc 392 Conclusion SINUS BRADYCARDIA WITH SINUS ARRHYTHMIA BORDERLINE ECG Electronically signed by : ALIRIO VILLATORO, 01/04/2025 07:18:50
[2025-01-02 22:00] LABS: Microscopic, Urine URINE MICROSCOPIC (MICROSCOPIC)
[2025-01-02 22:06] LABS: Bilirubin,Urine Negative (Negative); Color,Urine YELLOW (Yellow); Glucose,Urine (UA) 2+ (Negative); Ketones,Urine Negative (Negative); Leukocyte Esterase,Urine Negative (Negative); PH,Urine 6.0 (5.0-8.5); Protein,Urine 1+ (Negative); Specific Gravity, Urine 1.020 (1.005-1.030); Urobilinogen,Urine 1.0 EU/dl (0.2)
[2025-01-02 22:15] LABS: Amphetamine/Metha Screen,Urine Negative ng/ml (<1000); Benzodiazepines Screen,Urine Positive ng/ml (<200)
[2025-01-02 22:16] LABS: Barbiturates Screen,Urine Negative ng/ml (<200)
--- NOTE | 2025-01-02 22:16 | PC.NURSE ---
Called regarding a Consult for this pt. stated they would call back. Called radiology to SeeControl
[2025-01-02 22:18] LABS: Methadone Screen,Urine Negative ng/ml (<300); Opiate Screen,Urine Negative ng/ml (<300)
[2025-01-02 22:19] LABS: Phencyclidine Screen,Urine Negative ng/ml (<25)
[2025-01-02 22:44] LABS: RBC,Urine Occasional #/hpf (0-3); WBC,Urine Occasional #/hpf (0-3)
== END 2025-01-02 22:47 | disposition home or self-care (01) ==
PROVIDERS: Emergency Provider Student in an Organized Health Care Education/Training Program
DX: G40.919 Epilepsy, unspecified, intractable, without status epilepticus (principal); E87.1 Hypo-osmolality and hyponatremia; Z86.79 Personal history of other diseases of the circulatory system
CPT/HCPCS: 70450; 71045; 80053; 80307; 81001; 82550; 82803; 83735; 84100; 85025; 93005; 96374; 99285; J1953

== ENCOUNTER 2025-01-04 00:24 | Emergency (ER) | payer OTHER, SELFPAY ==
--- NOTE | 2025-01-04 00:33 | ED_ITS ---
Discharge Plan Disposition Patient Disposition: Home, Self-Care Condition: Good Prescriptions Prescriptions: New ondansetron HCl 4 mg tablet 4 mg PO Q8H PRN (Reason: nausea and vomiting) 5 Days Qty: 30 0RF No Action Entresto 24-26 mg tablet See Rx Instructions .ROUTE .COMPLEX Qty: 60 5RF Dose Instruction: TAKE ONE TABLET BY MOUTH 2 TIMES A DAY Rx Instructions: TAKE ONE TABLET BY MOUTH 2 TIMES A DAY dapagliflozin propanediol [Farxiga] 10 mg tablet 10 mg PO DAILY Qty: 30 3RF bisoprolol fumarate 5 mg tablet See Rx Instructions .ROUTE .COMPLEX Qty: 90 3RF Dose Instruction: TAKE ONE TABLET BY MOUTH EVERY DAY Rx Instructions: TAKE ONE TABLET BY MOUTH EVERY DAY levetiracetam [Keppra] 500 mg tablet 1,000 mg PO BID 30 Days Qty: 120 0RF Referrals Follow up/Referrals: Provider,Referral, MD [Primary Care Provider, Medical] - See instructions Activity Restrictions/Add. Instructions Additional Instructions/Restrictions: Please take Zofran as needed for nausea and vomiting. Please take Tylenol and ibuprofen as needed for back pain. Please follow-up with your primary care provider. Please return to the emergency department if you develop any new or worsening symptoms or become concerned for your health. Clinical Impressions Clinical Impression: Nausea & vomiting, Epilepsy Print Language Print Language: Sammarinese Discharge ED Provider: Juwan Mccabe Adult HPI General Chief complaint: Weakness Stated complaint: lightheaded, nausea, chest pain, vomiting Time Seen by Provider: 01/04/25 00:33 History of Present Illness HPI narrative: 19-year-old male with history of epilepsy presents for nausea and diminished p.o. intake today. He was seen here yesterday for breakthrough seizures and had a full workup including labs, CT scan etc. He reports that today he has been feeling more under the weather, having some nausea and vomiting. Denies eating or drinking anything that might of caused a stomach bug as far as he is aware. Reports some back aches as well. Denies any recurrent seizures. Reports normal urine and bowel output. Related Data Previous Rx's ?Medication ?Instructions ?Recorded Farxiga 10 mg tablet 10 mg PO DAILY #30 tabs 08/10 12/03 (dapagliflozin propanediol) bisoprolol fumarate 5 mg tablet See Rx Instructions .R oute 09/03/24 .COMPLEX #90 tabs sacubitril 24 mg-valsartan 26 mg See Rx Instructions . Route 09/03/24 tablet (Entresto) .COMPLEX #60 tabs levetiracetam 500 mg tablet 1,000 mg (2 x 500 mg) PO B ID 1 01/02/25 (Keppra) month #120 tabs ondansetron HCl 4 mg tablet 4 mg PO Q8H PRN nausea and 01/04/25 vomiting 5 days #30 tabs Allergies Allergy/AdvReac Type Severity Reaction Status Date / Time adhesive Allergy Hives Verified 09/03/24 13:36 [facility] Disclaimer: The information contained in this section may have been updated after the patient was seen, as this information can be updated by other users. Medical History Palpitations Abnormal findings on diagnostic imaging of heart and coronary circulation HFrEF (heart failure with reduced ejection fraction) Daytime somnolence Snoring ASD (atrial septal defect) Abnormal computed tomography angiography (CTA) Cardiomyopathy Syncope Orthostatic hypotension Pulmonary valve regurgitation Diastolic dysfunction Burning chest pain Chest pain Systolic heart failure Abnormal electrocardiogram [ECG] [EKG] Asthma Surgical History No history of previous surgery Family History Other Alcoholism Diabetes Family history of heart disease Stroke Social History Smoking Status: Never smoker alcohol intake: never substance use type: marijuana current occupational status: unemployed Travel in the last 8 weeks?: None household members: family housing: house marital status: single caffeine: Yes Do you have any weakness?: Yes Other Medical History Have you received the Flu Vaccine for this season: No Have you received the Pneumonia Vaccine: No ROS Obtained: Yes All systems reviewed & no additional complaints except as documented Physical Exam General General appearance: alert and in no apparent distress Head Head exam: atraumatic and normocephalic Eye Eye exam: Present normal appearance, PERRL and EOMI ENT ENT exam: Present normal oropharynx and normal external ear exam Neck Neck exam: Present normal inspection and full ROM Chest Chest inspection: Present normal inspection and symmetric chest wall rise; Absent tenderness Respiratory Respiratory exam: Present normal lung sounds bilaterally; Absent respiratory distress Cardiovascular Cardiovascular exam: Present regular rate and normal rhythm Abdominal Exam Abdominal exam: Present soft; Absent distention, tenderness or guarding Extremities Exam Extremities exam: Present normal inspection; Absent edema or joint swelling Back Exam Back exam: Present normal inspection; Absent tenderness Neurological Exam Neurological exam: Present alert and oriented X3; Absent motor sensory deficit Psychiatric Psychiatric exam: Present normal affect and normal mood Skin Skin exam: Present warm, dry and normal color Lymphatic Lymphatic Findings: no adenopathy Medical Decision Making Medical Records Medical records reviewed: Yes I reviewed the patient's medical records. Screening: Per USPSTF and CDC recommendations, given the prevalence of disease in our region, it is our hospital?s policy to screen for HIV and viral Hepatitis for all patients aged 18 and over and those with ongoing risk factors. Alin Inquiry Pt receiving controlled substance: No Alin was queried for this patient: No Vital Signs: 01/04/25 00:34 01/04/25 00:45 01/04/25 01:01 Temperature 97.9 F Temperature Source Oral Pulse Rate 62 60 Pulse Rate [Left] 74 Respiratory Rate 18 15 Blood Pressure 147/84 H 155/67 H Blood Pressure [Right Arm] 147/84 H Blood Pressure Mean 86 Blood Pressure Mean [Right Arm] 105 Blood Pressure Source [Right Arm] Automatic Cuff Blood Pressure Position [Right Arm] Sitting 02 Sat by Pulse Oximetry 98 99 98 Oxygen Delivery Method Room Air 01/04/25 01:30 01/04/25 01:39 Temperature 98 F Temperature Source Pulse Rate 62 62 Pulse Rate [Left] Respiratory Rate 14 14 Blood Pressure 145/78 H 145/78 H Blood Pressure [Right Arm] Blood Pressure Mean 100 Blood Pressure Mean [Right Arm] Blood Pressure Source [Right Arm] Blood Pressure Position [Right Arm] 02 Sat by Pulse Oximetry 96 Oxygen Delivery Method Room Air Lab Data Lab results reviewed: Yes I reviewed the patient's lab results. Orders (Tests/Meds): ED MEDICATIONS Discontinued Medications Generic Name Dose Route Start Last Admin Trade Name Freq PRN Reason Stop Dose Admin Acetaminophen 1,000 mg 01/04/25 01:38 01/04/25 01:41 Acetaminophen 500mg Tab PO 01/04/25 01:39 1,000 mg ONCE ONE Administration Ibuprofen 600 mg 01/04/25 01:38 01/04/25 01:41 Ibuprofen 600 Mg Tablet PO 01/04/25 01:39 600 mg ONCE ONE Administration Ondansetron HCl 4 mg 01/04/25 00:49 01/04/25 00:54 Ondansetron 4mg/5ml Thelma Udc PO 01/04/25 00:50 4 mg ONCE ONE Administration Medical Decision Narrative: 19-year-old male with history of of epilepsy presents for nausea and vomiting x 1 day. He was seen here yesterday for breakthrough seizures and had a full workup which was unremarkable.. History was obtained via interactive discussion with patient, family, chart review. On arrival, patient is [afebrile, hemodynamically stable, satting appropriately, alert, oriented x4, GCS 15], moving all extremities spontaneously. Full physical exam performed and significant for benign abdominal exam, moist mucous membranes Differential includes but is not limited to gastroenteritis, medication side effect, dehydration, pancreatitis. Given he had a negative workup less than 24 hours ago, seems unlikely that he would have any significant laboratory derangements today. I offered patient IV fluids and labs but he would prefer not to be poked. He was given Zofran and thereafter was able to tolerate some Sprite. He also took Tylenol and ibuprofen for his back aches. He was discharged in stable condition with prescription for Zofran. Return precautions given. Procedures Risk/Benefits of Procedure(s) Were Explained: Yes Critical Care Critical Care Time Critical Care Time: No
--- OUTSIDE RECORDS SUMMARY | 2025-01-04 00:33 | XMS_ITS | Clinical Summary ---
Author Organization Healthcare Address [address] [place] [address] Care Team Providers Care Candle Extrusion Machine Operator Name Role Phone Adiel Beltre Aishwarya DO Primary Care Provider [phone] Encounters Date Type Department Care Team Description 01/02/2025 Orders Only External Location [address] [place] [id number] Provider, External 01/02/2025 Orders Only External Location [address] [place] [address] Provider, External 10/16/2024 Community Orders Community Practice [address] [place] [address] Aaron Velasquez, DMD Extraction of tooth needed [...] Info) Description 03/23/2025 8:00 AM EDT Consult [facility] [address] [place] [address] Ingrid Morgan, VP SOFTWARE [address] [place] [address] Health Maintenance Due Date Last Done Comments [facility]-Depression Screening 2003 [facility]-HIV Screening 2003 [facility]-Hepatitis C Screening 2003 [facility]-Infant/Child/Adol SDOH Screenings 2003 [facility]-Obesity Intervention 2009 HPV Vaccines (1 - Male 3-dose series) 2018 [facility]- SDOH Screenings 2021 [facility]-Adult SDOH Screenings 2021 [id number] Vaccine (1 - season) 2024 [facility]-Influenza Vaccine [...] on patient's age to complete this topic Procedures Procedure Name Priority Date/Time Associated Diagnosis Comments XR OUTSIDE IMAGES 01/02/2025 8:[address] OUTSIDE IMAGES 01/02/2025 8:12 PM EDT from Last 3 Months Results * XR OUTSIDE IMAGES (01/02/2025 8:14 PM EDT) Anatomical Region Laterality Modality Radiographic Caty ging 01/02/2025 8:14 PM EDT us External Provider IMG XR PROCEDURES Final Result * CT OUTSIDE IMAGES (01/02/2025 8:12 PM EDT) Anatomical Region Laterality Modality Computed Tomogra phy 01/02/2025 8:12 PM EDT us External Provider IMG CT PROCEDURES Final Result from Last 3 Months Insurance [facility] [facility] MEDICAID [facility] MEDICAID DENTAL Care Teams Candle Extrusion Machine Operator Relationship Specialty Start Date End Date Adiel Beltre DO [address] [place] [address] [place] [address] PCP - General 09/09/24
--- OUTSIDE RECORDS SUMMARY | 2025-01-04 00:33 | XMS_ITS | Encounter Summary ---
Author Organization Healthcare Address [address] [place] [address] Care Team Providers Care Preventive Medicine Specialist Name Role Phone Adiel Beltre Primary Care Provider [phone] Encounter Details Date Type Department Care Team (Late st Contact Info) Description 01/02/2025 Orders Only External Location [address] [place] [address] Provider, External Social History Tobacco Use Types Packs/Day Years [...] Info) Description 03/23/2025 8:00 AM EDT Consult [facility] [address] [place] [address] Ingrid Morgan, GURJIT [address] [place] [address] documented as of this encounter Procedures Procedure Name Priority Date/Time Associated Diagnosis Comments CT OUTSIDE IMAGES 01/02/2025 8:12 PM EDT documented in this encounter Results * CT OUTSIDE IMAGES (01/02/2025 8:12 PM EDT) Anatomical Region Laterality Modality Computed Tomogra phy 01/02/2025 8:12 PM EDT us External Provider IMG CT PROCEDURES Final Result documented in this encounter Visit Diagnoses Not on filedocumented in this encounter Care Teams Preventive Medicine Specialist Relationship Specialty Start Date End Date Adiel Beltre DO [address] [place] [address] [place] [id number] PCP - General 09/09/24 documented as of this encounter
--- OUTSIDE RECORDS SUMMARY | 2025-01-04 00:33 | XMS_ITS | Encounter Summary ---
Author Organization Healthcare Address [address] [place] [address] Care Team Providers Care Casket Upholsterer Name Role Phone Adiel Beltre Primary Care Provider [phone] Encounter Details Date Type Department Care Team (Late st Contact Info) Description 01/02/2025 Orders Only External Location [address] [place] [address] Provider, External Social History Tobacco Use Types [...] Info) Description 03/23/2025 8:00 AM EDT Consult [facility] [address] [place] [address] Ingrid Morgan, GURJIT [address] [place] [address] documented as of this encounter Procedures Procedure Name Priority Date/Time Associated Diagnosis Comments XR OUTSIDE IMAGES 01/02/2025 8:14 PM EDT documented in this encounter Results * XR OUTSIDE IMAGES (01/02/2025 8:14 PM EDT) Anatomical Region Laterality Modality Radiographic Caty ging 01/02/2025 8:14 PM EDT us External Provider IMG XR PROCEDURES Final Result documented in this encounter Visit Diagnoses Not on filedocumented in this encounter Care Teams Casket Upholsterer Relationship Specialty Start Date End Date Adiel Beltre DO [address] [place] [address] [place] [address] PCP - General 09/09/24 documented as of this encounter
--- OUTSIDE RECORDS SUMMARY | 2025-01-04 00:33 | XMS_ITS | Encounter Summary ---
Author Organization Healthcare Address [address] [place] [address] Care Team Providers Care Technical Maintenance Specialist Name Role Phone Coni Beltreew Aishwarya MODI Primary Care Provider [phone] Reason for Referral * Consultation (Routine) - Authorized Specialty Diagnoses / Procedures Referred By Contsylvester t Referred To Contact Oral Surgery Diagnoses Extraction of tooth needed Aaron Velasquez DMD [address] [address] Phone: tel: fax: [facility] managing partner digital content marketing [facility] [address] [place] [address] [address] [place] [address] Phone: tel: Referral ID Status Reason Start Date Expiration Date Visits Requested Visits Authorized [id number] Authorized Specialty Services Required 10/16/2024 04/17/2026 1 1 Encounter Details Date Type Department Care Team ([facility] Contact Info) Description 10/16/2024 [facility] [address] [place] [address] Aaron Velasquez DMD [address] [place] [address] [address] Extraction of tooth needed (Primary Dx) Social [...] Consult [place] [facility] [address] [place] [address] Ingrid Morgan, MACHINE FANCY STITCHER [address] [place] [address] Scheduled Referrals Name Type Priority Associated Diagnoses Order Schedule Ambulatory referral to Oral Maxillofacial Surgery Outpatient Referral Routine Extraction of tooth needed Ordered: 10/16/2024 documented as of this encounter Visit Diagnoses Diagnosis Extraction of tooth needed- Primary documented in this encounter Care Teams Technical Maintenance Specialist Relationship Specialty Start Date End Date Adiel Beltre DO [address] [place] [address] PCP - General 09/09/24 documented as of this encounter
--- OUTSIDE RECORDS SUMMARY | 2025-01-04 00:33 | XMS_ITS | Clinical Summary ---
Author Organization [facility] Address [address] [facility] [address] [place] [address] Care Team Providers Care Marketing Co Op Name Role Phone Unavailable Primary Care Provider [...] age to complete this topic Insurance [facility]
[2025-01-04 00:34] VITALS: BP 147/84; PULSE 74; RESP 18; TEMP 36.6; O2SAT 98; BMI 28.3
[2025-01-04 00:45] VITALS: BP 147/84; PULSE 62; O2SAT 99
[2025-01-04] MEDS: ONDANSETRON 4MG/5ML SOL UDC 4 MG PO (00:54)
[2025-01-04 01:01] VITALS: BP 155/67; PULSE 60; RESP 15; O2SAT 98
[2025-01-04 01:30] VITALS: BP 145/78; PULSE 62; RESP 14; O2SAT 96
[2025-01-04 01:39] VITALS: BP 145/78; PULSE 62; RESP 14; TEMP 36.6; O2SAT 96
[2025-01-04] MEDS: ACETAMINOPHEN 500MG TAB 1000 MG PO (01:41)
[2025-01-04] MEDS: IBUPROFEN 600 MG TABLET PO (01:41)
== END 2025-01-04 01:45 | disposition home or self-care (01) ==
PROVIDERS: Emergency Provider Emergency Medicine
DX: R11.2 Nausea with vomiting, unspecified (principal); R42 Dizziness and giddiness; G40.909 Epilepsy, unspecified, not intractable, without status epilepticus
CPT/HCPCS: 99283; S0119

== ENCOUNTER 2025-02-10 15:10 | Outpatient (CLI) | payer OTHER, SELFPAY ==
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
--- OUTSIDE RECORDS SUMMARY | 2025-02-10 15:13 | XMS_ITS | Encounter Summary ---
Author Organization Healthcare Address [address] [place] [address] Care Team Providers Care Outpatient Phlebotomist Name Role Phone Adiel Beltre DO Primary Care Provider [phone] Woodrow Hess MD Unavailable Encounter Details Date Type Department Care Team (Latest Contact Info) Description 01/12/2025 Travel Social History Tobacco Use Types Packs/Day Years Used Date Smoking Tobacco: Never Passive Smoke Exposure: Yes Smokeless Tobacco: Never Alcohol Use Standard Drinks/Week Comments Never 0 [...] PM EDT Appointment [facility] Neurophysiology [address] [facility] [address] [place] [address] 04/14/2025 2:30 PM EST Office Visit [place] [facility] [address], [address] [place] [address] Woodrow Hess MD [address] [place] [address] documented as of this encounter Visit Diagnoses Not on filedocumented in this encounter Additional Health Concerns Assessment Noted Time A fall risk assessment has been complete d for the patient 01/12/2025 3:10 PM EDT A Body Mass Index follow-up plan has been documented for the patient 01/13/2025 10:35 AM EDT documented as of this encounter Care Teams Outpatient Phlebotomist Relationship Specialty Start Date End Date Adiel Beltre DO [facility] [address] [place] [address] PCP - General 09/09/24 Woodrow Hess MD [address] [place] [address] Resident Neurology 01/12/25 documented as of this encounter
--- OUTSIDE RECORDS SUMMARY | 2025-02-10 15:14 | XMS_ITS | Encounter Summary ---
Author Organization Healthcare Address [address] [place] [address] Care Team Providers Care Inspector Raw Quartz Name Role Phone Adiel Beltre DO Primary Care Provider [phone] Woodrow Hess MD Unavailable Reason for Referral * Consultation (Routine) - Authorized Specialty Diagnoses / Procedures Referred By Kavitha garber Referred To Contact Oral Surgery Diagnoses Extraction of tooth needed Aaron Velasquez DMD [address] [address] Phone: tel: fax: [facility] cryogenics engineer [facility] [address] [place] [address] [address] [place] [address] Phone: tel: Referral ID Status Reason Start Date Expiration Date Visits Requested Visits Authorized [id number] Authorized Specialty Services Required 10/16/2024 04/17/2026 1 1 Encounter Details Date Type Department Care Team (Late st Contact Info) Description 10/16/2024 Community Orders Community [facility] [address] [place] [address] Aaron Velasquez DMD [address] [place] [address] Extraction of tooth needed (Primary Dx) Social [...] PM EDT Appointment [facility] [address] [place] [address] 04/14/2025 2:30 PM EST Office Visit [place] [facility] [address], [address] [place] [address] Woodrow Hess MD [address] [place] [address] Scheduled Referrals Name Type Priority Associated Diagnoses Order Schedule Ambulatory referral to Oral Maxillofacial Surgery Outpatient Referral Routine Extraction of tooth needed Ordered: 10/16/2024 documented as of this encounter Visit Diagnoses Diagnosis Extraction of tooth needed- Primary documented in this encounter Care Teams Inspector Raw Quartz Relationship Specialty Start Date End Date Adiel Beltre DO [facility] [address] [place] [address] PCP - General 09/09/24 Woodrow Hess MD [address] [place] [address] Resident Neurology 01/12/25 documented as of this encounter
--- OUTSIDE RECORDS SUMMARY | 2025-02-10 15:14 | XMS_ITS | Encounter Summary ---
Author Organization Healthcare Address [address] [place] [address] Care Team Providers Care Retail Leader Name Role Phone Adiel Beltre Aishwarya MODI Primary Care Provider [phone] Encounter Details Date Type Department Care Team (Late st Contact Info) Description 01/02/2025 Orders Only External Location [address] [place] [address] Provider, External Social History Tobacco Use Types [...] PM EDT Appointment [facility] Neurophysiology [address] [facility] [address] [place] [address] 04/14/2025 2:30 PM EST Office Visit [place] [facility] [address], [address] [place] [address] Woodrow Hess MD [address] [place] [address] documented as of this encounter Procedures Procedure [...] on filedocumented in this encounter Care Teams Retail Leader Relationship Specialty Start Date End Date Adiel Beltre DO [address] [facility] [address] PCP - General 09/09/24 documented as of this encounter
--- OUTSIDE RECORDS SUMMARY | 2025-02-10 15:14 | XMS_ITS | Clinical Summary ---
Author Organization Healthcare Address [address] [place] [address] Care Team Providers Care Assembler Dc Field Ring Name Role Phone Adiel Beltre DO Primary Care Provider [phone] Woodrow Hess MD Unavailable Allergies Active Allergy Reactions Criticality Noted Date Comments Tape/Bandaid Adhesive Rash Low 01/12/2025 Rash, burning sensation Medications bisoprolol (Zebeta) 5 MG tablet Take 1 tablet by mouth daily. 01/06/20 25 Active Farxiga 10 MG tablet 11/21/19 25 Active omeprazole (PriLOSEC) [address] capsule Take 1 capsule by mouth daily. 01/07/20 25 Active ondansetron ODT (Zofran-ODT) 4 MG disintegrating tablet DISSOLVE 1 TABLET ON THE TONGUE EVERY 8 HOURS NEEDED FOR NAUSEA AND VOMITING 01/07/20 25 Active Entresto 24-26 MG tablet 05/26/20 24 Active spironolactone (Aldactone) 25 MG tablet 01/09/20 25 Active albuterol 108 (90 Base) MCG/ACT inhaler Inhale 2 puffs 4 times a day. Active levETIRAcetam (Keppra) 750 MG tablet Take 1 tablet by mouth 2 times a day. 60 tablet 2 01/13/20 25 Active levETIRAcetam (Keppra) 1000 MG tablet Take 1 tablet by mouth 2 times a day. 01/07/20 25 025 Discontinued Encounters Date Type Department Care Team Description 01/12/2025 3:00 PM EDT Office Visit [place] [facility] [address], 1st [place] [address] Woodrow Hess MD Seizure (CMS/HCC) (Primary Dx) 01/12/2025 Travel 01/07/[address] [facility] [address], 1st [place] [address] Z[facility]enianeurology, Physician, 01/02/2025 Orders Only External Location [address] [place] [address] Provider, External 01/02/2025 Orders Only External Location [address] [place] [address] Provider, External from Last 3 Months Immunizations Immunization Administration [...] Mass Index 38.24 01/12/2025 3:15 PM EDT Plan of Treatment Upcoming Encounters Date Type Department Care Team (Late st Contact Info) Description 03/17/2025 2:00 PM EDT Appointment [facility] Neurophysiology 800 [facility] [address] [place] [address] 04/14/2025 2:30 PM EST Office [facility] [place] [facility] [address], [address] [place] [address] Woodrow Hess MD [address] [place] [address] Health Maintenance Due Date Last Done Comments [facility]-Depression Screening 2003 [facility]-HIV Screening 2003 [facility]-Hepatitis C Screening 2003 [facility]-Infant/Child/Adol SDOH Screenings 2003 HPV Vaccines (1 - Male 3-dose series) 2018 [facility]- SDOH Screenings 2021 [facility]-Adult SDOH Screenings 2021 [id number] Vaccine (1 - season) 2024 [facility]-Influenza Vaccine [...] exists [facility]-Hepatitis A Vaccines Completed 10/07/2018, 12/10 [facility]-Obesity Intervention Completed 01/12/2025 [facility]-Pneumococcal Vaccine: Pediatrics (0 to 5 Years) and At-Risk Patients (6 to 49 Years) Aged Out No longer eligible based on patient's age to complete this topic [facility]-Rotavirus Vaccines Aged Out No lo nger eligible based on patient's age to complete this topic Procedures Procedure Name Priority Date/Time Associated Diagnosis Comments CBC WITH AUTO DIFFERENTIAL Routine 01/12/2025 4:35 PM EDT Seizure (CMS/HCC) COMPREHENSIVE METABOLIC PANEL, PLASMA Routine 01/12/2025 4:35 PM EDT Seizure (CMS/HCC) LEVETIRACETAM LEVEL Routine 01/12/2025 4 :35 PM EDT Seizure (CMS/HCC) XR OUTSIDE IMAGES 01/02/2025 8:[address] OUTSIDE IMAGES 01/02/2025 8:1 2 PM EDT from Last 3 Months Results * (ABNORMAL) Levetiracetam level (01/12/2025 4:35 PM EDT) Levetiracetam (Keppra) 9.6(L) 12.0 - 46.0 ug/mL 01/13/2025 7:48 PM EDT [facility] Blood Venous blood specimen / Unknown Venipuncture / Unknown 01/12/2025 4:35 PM EDT 01/12/2025 4:36 PM EDT Narrative [facility] - 01/13/2025 7:48 PM EDT Test performed by LC-MS/MS at the [facility]. This test was developed and its performance characteristics determined by [facility]. It has not been cleared or approved by the FDA. The laboratory is regulated under CLIA as qualified to perform high-complexity testing. This test is used for clinical purposes. Ruby Mancini MD LAB BLOOD ORDERABLES Final Result [facility] [address] [place] [address] * (ABNORMAL) CBC and differential (01/12/2025 4:35 PM EDT) WBC Count 4.44 3.70 - 10.30 10*3/uL LAB HEMATOLOGY METHOD 01/12/2025 6:24 PM EDT [facility] RBC Count 4.98 4.60 - 6.10 10*6/uL LAB HEMATOLOGY METHOD 01/12/2025 6:24 PM EDT [facility] HGB 16.0 13.7 - 17.5 g/dL LAB HEMATOLOGY METHOD 01/12/2025 6:24 PM EDT [facility] HCT 43.5 40.0 - 51.0 % LAB HEMATOLOGY METHOD 01/12/2025 6:24 PM EDT [facility] Platelet Count 150(L) 155 - 369 10*3/uL LAB HEMATOLOGY METHOD 01/12/2025 6:24 PM EDT [facility] MCV 87 79 - 98 fL LAB HEMATOLOGY METHOD 01/12/2025 6:24 PM EDT [facility] MCH 32.1(H) 26.0 - 32.0 pg LAB HEMATOLOGY METHOD 01/12/2025 6:24 PM EDT [facility] MCHC 36.8(H) 30.7 - 35.5 g/dL LAB HEMATOLOGY METHOD 01/12/2025 6:24 PM EDT [facility] RDW 11.7 11.5 - 14.5 % LAB HEMATOLOGY METHOD 01/12/2025 6:24 PM EDT [facility] MPV 11.7 8.8 - 12.5 fL LAB HEMATOLOGY METHOD 01/12/2025 6:24 PM EDT [facility] nRBC 0.0 <=0.0 per 100 WBCs LAB HEMATOLOGY METHOD 01/12/2025 6:24 PM EDT [facility] Differential Type Automated LAB HEMATOLOGY METHOD 01/12/2025 6:24 PM EDT [facility] Neutrophils % 60 % LAB HEMATOLOGY METHOD 01/12/2025 6:24 PM EDT [facility] Lymphocytes % 26 % LAB HEMATOLOGY METHOD 01/12/2025 6:24 PM EDT [facility] Monocytes % 9 % LAB HEMATOLOGY METHOD 01/12/2025 6:24 PM EDT [facility] Eosinophils % 3 % LAB HEMATOLOGY METHOD 01/12/2025 6:24 PM EDT [facility] Basophils % 1 % LAB HEMATOLOGY METHOD 01/12/2025 6:24 PM EDT [facility] Immature Granulocytes % 1 % LAB HEMATOLOGY METHOD 01/12/2025 6:24 PM EDT [facility] Neutrophils Absolute 2.70 1.60 - 6.10 10*3/uL LAB HEMATOLOGY METHOD 01/12/2025 6:24 PM EDT [facility] Lymphocytes Absolute 1.17(L) 1.20 - 3.90 10*3/uL LAB HEMATOLOGY METHOD 01/12/2025 6:24 PM EDT [facility] Monocytes Absolute 0.39 0.30 - 0.90 10*3/uL LAB HEMATOLOGY METHOD 01/12/2025 6:24 PM EDT [facility] Eosinophils Absolute 0.14 0.00 - 0.50 10*3/uL LAB HEMATOLOGY METHOD 01/12/2025 6:24 PM EDT [facility] Basophils Absolute 0.02 0.00 - 0.10 10*3/uL LAB HEMATOLOGY METHOD 01/12/2025 6:24 PM EDT [facility] Immature Granulocytes Absolute 0.02 0.00 - 0.06 10*3/uL LAB HEMATOLOGY METHOD 01/12/2025 6:24 PM EDT [facility] Blood Venous blood specimen / Unknown Venipuncture / Unknown 01/12/2025 4:35 PM EDT 01/12/2025 4:36 PM EDT [facility] - 01/12/2025 6:24 PM EDT Therapeutic decision making should be based on absolute values, rather than percentages. us Ruby Mancini MD LAB BLOOD ORDERABLES Final Result [facility] [address] [place] [address] * Comprehensive metabolic panel (01/12/2025 4:35 PM EDT) Glucose, Plasma 80 74 - 99 mg/dL 01/12/2025 6:31 PM EDT [facility] BUN, Plasma 15 7 - 21 mg/dL 01/12/2025 6:31 PM EDT [facility] Creatinine, Plasma 1.00 0.70 - 1.20 mg/dL 01/12/2025 6:31 PM EDT [facility] BUN/Creatinine Ratio 15 01/12/2025 6:31 PM EDT [facility] Sodium, Plasma 140 136 - 145 mmol/L 01/12/2025 6:31 PM EDT [facility] Potassium, Plasma 4.3 3.6 - 4.9 mmol/L 01/12/2025 6:31 PM EDT [facility] Chloride, Plasma 105 97 - 107 mmol/L 01/12/2025 6:31 PM EDT [facility] CO2, Plasma 25 22 - 29 mmol/L 01/12/2025 6:31 PM EDT [facility] Anion Gap 10 6 - 16 mmol/L 01/12/2025 6:31 PM EDT [facility] Total Calcium, Plasma 9.3 8.9 - 10.2 mg/dL 01/12/2025 6:31 PM EDT [facility] Total Protein 7.5 6.3 - 7.9 g/dL 01/12/2025 6:31 PM EDT [facility] Albumin, Plasma 4.8 3.5 - 5.2 g/dL 01/12/2025 6:31 PM EDT [facility] AST, Plasma 22 10 - 50 U/L 01/12/2025 6:31 PM EDT [facility] ALT, Plasma 15 10 - 50 U/L 01/12/2025 6:31 PM EDT [facility] Alkaline Phosphatase, Plasma 96 40 - 115 U/L 01/12/2025 6:31 PM EDT [facility] Total Bilirubin, Plasma 0.7 0.2 - 1.1 mg/dL 01/12/2025 6:31 PM EDT [facility] eGFRcr 109.8 mL/min/1.7 3m*2 01/12/2025 6:31 PM EDT [facility] Comment:Reported eGFRcr in m L/min/1.73m2 is based the CKD-EPI 2020 equation that does not use a race coefficient. Blood Venous blood specimen / Unknown Venipuncture / Unknown 01/12/2025 4:35 PM EDT 01/12/2025 4:36 PM EDT Ruby Mancini MD LAB BLOOD ORDERABLES Final Result [facility] [address] [place] [address] * XR OUTSIDE IMAGES (01/02/2025 8:14 PM EDT) Anatomical Region Laterality Modality Radiographic Caty ging 01/02/2025 8:14 PM EDT us External Provider IMG XR PROCEDURES Final Result * CT OUTSIDE IMAGES (01/02/2025 8:12 PM EDT) Anatomical Region Laterality Modality Computed Tomogra phy 01/02/2025 8:12 PM EDT us External Provider IMG CT PROCEDURES Final Result from Last 3 Months Insurance AETNA [facility] MEDICAID [employer] MEDICAID DENTAL Care Teams Assembler Dc Field Ring Relationship Specialty Start Date End Date Adiel Beltre DO [address] [place] [address] [address] [place] [address] PCP - General 09/09/24 Woodrow Hess MD [address] [place] [id number] Resident Neurology 01/12/25
--- OUTSIDE RECORDS SUMMARY | 2025-02-10 15:14 | XMS_ITS | Encounter Summary ---
Author Organization Healthcare Address [address] [place] [address] Care Team Providers Care Fashion Consultant Sales Name Role Phone Adiel Beltre Aishwarya MODI Primary Care Provider [phone] Encounter Details Date Type Department Care Team (Late st Contact Info) Description 01/02/2025 Orders Only External Location [address] [place] [address] Provider, External Social History Tobacco Use Types [...] PM EDT Appointment [facility] Neurophysiology 800 [facility] [address] [place] [address] 04/14/2025 2:30 PM EST Office Visit [place] [facility] [address], [address]st [place] [address] Woodrow Hess MD [address] [place] [address] documented as of this encounter Procedures Procedure [...] on filedocumented in this encounter Care Teams Fashion Consultant Sales Relationship Specialty Start Date End Date Adiel Beltre DO [address] [place] [address] [place] [address] PCP - General 09/09/24 documented as of this encounter
--- OUTSIDE RECORDS SUMMARY | 2025-02-10 15:14 | XMS_ITS | Encounter Summary ---
Author Organization Healthcare Address [address] [place] [address] Care Team Providers Care Range Ecologist Name Role Phone Adiel Beltre DO Primary Care Provider [phone] Encounter Details Date Type Department Care Team (Late st Contact Info) Description 01/07/2025 Telephone [facility] [address], 1st [place] [address] Zzzneurology, Physician, [address] [place], [place] [id number] Social History Tobacco Use Types Packs/Day Years Used Date Smoking Tobacco: Passive Smo ke Exposure - Never Smoker Sex and Gender Information Value Date Recorded Sex Assigned at Not on file Legal Sex Male 8:58 PM EDT Gender Identity Not on file Sexual Orientation Not on file documented as of this encounter Plan of Treatment Upcoming Encounters Date Type Department Care Team (Late Contact Info) Description 03/17/2025 2:00 PM EDT Appointment [facility] Neurophysiology 800 [facility] Pav [address] Room [address] [address] 04/14/2025 2:30 PM EST Office Visit [facility] [address], [address]st [place] [address] Woodrow Hess MD [address] [place] [address] documented as of this encounter Visit Diagnoses Not on filedocumented in this encounter Care Teams Range Ecologist Relationship Specialty Start Date End Date Adiel Beltre DO [address] [place] [address] [place] [address] PCP - General 09/09/24 documented as of this encounter
--- OUTSIDE RECORDS SUMMARY | 2025-02-10 15:14 | XMS_ITS | Clinical Summary ---
Author Organization [facility] Address [address] [facility] [address] [place] [address] Care Team Providers Care Telephone Appointment Clerk Name Role Phone Unavailable Primary Care Provider [...] age to complete this topic Insurance AENA [facility]
[2025-02-10 16:03] LABS: Chloride 103 mmol/L (98-107); Potassium 4.2 mmoL/L (3.5-5.1); Sodium 138 mmol/L (136-145)
[2025-02-10 16:06] LABS: Anion Gap 14.2 mEq/L (5-15); Blood Urea Nitrogen 21 mg/dl (9-20); Calcium 10.2 mg/dl (8.4-10.2); Carbon Dioxide 25 mmol/L (22.0-30.0); Creatinine,Serum 1.00 mg/dl (0.66-1.25); Estimated Glomerular Filt Rate 94 ml/min (>60); GFR (African American) 114 ML/MIN (>60); Glucose 96 mg/dl (74-100)
== END 2025-02-10 23:59 | disposition home or self-care (01) ==
LOC: LAB 15:12
PROVIDERS: PCP Internal Medicine; Visit Provider Internal Medicine
DX: I50.20 Unspecified systolic (congestive) heart failure (principal)
CPT/HCPCS: 36415; 80048

== ENCOUNTER 2025-02-14 23:25 | Observation (INO) | payer OTHER, SELFPAY ==
--- OUTSIDE RECORDS SUMMARY | 2025-01-12 15:00 | XMS_ITS | Encounter Summary ---
Author Organization Healthcare Address [address] [place] [address] Care Team Providers Care Butadiene Converter Utility Operator Name Role Phone Adiel Beltre DO Primary Care Provider [phone] Woodrow Hess MD Unavailable Reason for Referral * Other Medical (Routine) - Pending Review Specialty Diagnoses / Procedures Referred By Kavitha garber Referred To Contact Neurology Diagnoses Seizure (CMS/HCC) Procedures EEG Continuous Monitoring Ruby Mancini MD [address] [address] Phone: tel: fax: Referral ID Status Reason Start Date Expiration Date Visits Requested Visits Authorized [id number] Pending Review Specialty Services Required 01/12/2025 07/14/2026 1 1 * Imaging (Routine) - Pending Review Specialty Diagnoses / Procedures Referred By Kavitha garber Referred To Contact Radiology Diagnoses Seizure (CMS/HCC) Procedures MR Head w and wo IV Contrast Ruby Mancini MD [address] [address] Phone: tel: fax: Referral ID Status Reason Start Date Expiration Date V isits Requested Visits Authorized [id number] Pending Review 01/12/2025 07/14/2026 1 1 * Other Medical (Routine) - Pending Review Specialty Diagnoses / Procedures Referred By Kavitha garber Referred To Contact Neurology Diagnoses Seizure (CMS/HCC) Procedures EEG Ruby Mancini MD [address] [facility] [address] [place] [address] Phone: tel: fax: Referral ID Status Reason Start Date Expiration Date Visits Requested Visits Authorized [id number] Pending Review Specialty Services Required 01/12/2025 07/14/2026 1 1 Encounter Details Date Type Department Care Team (Late st Contact Info) Description 01/12/2025 3:00 PM EDT Office Visit [place] [facility] [address], [address] [place] [address] Woodrow Hess MD [address] [place] [address] Seizure (CMS/HCC) (Primary Dx) Social [...] disorder, orthostatic hypotension who comes to the [facility] clinic for seizures. Per Intake Note [...] plantars downgoing b/l Coordination: no ataxia with [id number] and [id number] testing Proprioception: intact in upper and lower extremities bilaterally Gait/Station: Deferred Cortical: No Extinction Assessment/Plan: Reji De León is 19 y.o. year old M with PMH of seizures, HF, cardiomyopathy, mood disorder, orthostatic hypotension who comes to the [facility] clinic for seizures. #Spells of Altered [...] Reported Prior Surgical / Procedural History from [facility] [3] Not on File [4] Family History [...] PM EDT Appointment [facility] Neurophysiology [address] [facility] [address] [place] [address] 04/14/2025 2:30 PM EST Office Visit [place] [facility] [address] [place] [address] Woodrow Hess MD [address] [place] [address] Scheduled Orders Name Type Priority Associated Diagnoses Orde r Schedule EEG Neurology Routine Seizure ([facility]) 1 Occurrences starting 01/12/2025 until 07/16/2026 MR Head w and wo IV Contrast Imaging Routine Seizure ([facility]) Expected: 01/12/2025 (Approximate), Expires: 07/16/2026 EEG Continuous Monitoring Neurology Routine Seizure ([facility]) 1 Occurrences starting 01/12/2025 until 07/16/2026 documented as of this encounter Results * (ABNORMAL) Levetiracetam level (01/12/2025 4:35 PM EDT) Pathologist [facility] Levetiracetam (Keppra) 9.6(L) 12.0 - 46.0 ug/mL 01/13/2025 7:48 PM EDT [facility] Blood Venous blood specimen / Unknown Venipuncture / Unknown 01/12/2025 4:35 PM EDT 01/12/2025 4:36 PM EDT Narrative [facility] - 01/13/2025 7:48 PM EDT Test performed by LC-MS/MS at the [facility]. This test was developed and its performance characteristics determined by [facility]. It has not been cleared or approved by the FDA. The laboratory is regulated under CLIA as qualified to perform high-complexity testing. This test is used for clinical purposes. us Ruby Mancini MD LAB BLOOD ORDERABLES Final Result [facility] [address] [place] [address] * Comprehensive metabolic panel (01/12/2025 4:35 PM EDT) Pathologist [facility] Glucose, Plasma 80 74 - 99 mg/dL 01/12/2025 6:31 PM EDT [facility] BUN, Plasma 15 7 - 21 mg/dL 01/12/2025 6:31 PM EDT [facility] Creatinine, Plasma 1.00 0.70 - 1.20 mg/dL 01/12/2025 6:31 PM EDT [facility] BUN/Creatinine Ratio 15 01/12/2025 6:31 PM EDT [facility] Sodium, Plasma 140 136 - 145 mmol/L 01/12/2025 6:31 PM EDT [facility] Potassium, Plasma 4.3 3.6 - 4.9 mmol/L 01/12/2025 6:31 PM EDT [facility] Chloride, Plasma 105 97 - 107 mmol/L 01/12/2025 6:31 PM EDT [facility] CO2, Plasma 25 22 - 29 mmol/L 01/12/2025 6:31 PM EDT [facility] Anion Gap 10 6 - 16 mmol/L 01/12/2025 6:31 PM EDT [facility] Total Calcium, Plasma 9.3 8.9 - 10.2 mg/dL 01/12/2025 6:31 PM EDT [facility] Total Protein 7.5 6.3 - 7.9 g/dL 01/12/2025 6:31 PM EDT [facility] Albumin, Plasma 4.8 3.5 - 5.2 g/dL 01/12/2025 6:31 PM EDT [facility] AST, Plasma 22 10 - 50 U/L 01/12/2025 6:31 PM EDT [facility] ALT, Plasma 15 10 - 50 U/L 01/12/2025 6:31 PM EDT [facility] Alkaline Phosphatase, Plasma 96 40 - 115 U/L 01/12/2025 6:31 PM EDT [facility] Total Bilirubin, Plasma 0.7 0.2 - 1.1 mg/dL 01/12/2025 6:31 PM EDT [facility] eGFRcr 109.8 mL/min/1.7 3m*2 01/12/2025 6:31 PM EDT [facility] Comment:Reported eGFRcr in m L/min/1.73m2 is based the CKD-EPI 2020 equation that does not use a race coefficient. Blood Venous blood specimen / Unknown Venipuncture / Unknown 01/12/2025 4:35 PM EDT 01/12/2025 4:36 PM EDT us Ruby Mancini MD LAB BLOOD ORDERABLES Final Result [facility] [address] [place] [address] * (ABNORMAL) CBC and differential (01/12/2025 4:35 PM EDT) WBC Count 4.44 3.70 - 10.30 10*3/uL LAB HEMATOLOGY METHOD 01/12/2025 6:24 PM EDT [facility] RBC Count 4.98 4.60 - 6.10 10*6/uL LAB HEMATOLOGY METHOD 01/12/2025 6:24 PM EDT [facility] HGB 16.0 13.7 - 17.5 g/dL LAB HEMATOLOGY METHOD 01/12/2025 6:24 PM EDT [facility] HCT 43.5 40.0 - 51.0 % LAB HEMATOLOGY METHOD 01/12/2025 6:24 PM EDT [facility] Platelet Count 150(L) 155 - 369 10*3/uL LAB HEMATOLOGY METHOD 01/12/2025 6:24 PM EDT [facility] MCV 87 79 - 98 fL LAB HEMATOLOGY METHOD 01/12/2025 6:24 PM EDT [facility] MCH 32.1(H) 26.0 - 32.0 pg LAB HEMATOLOGY METHOD 01/12/2025 6:24 PM EDT [facility] MCHC 36.8(H) 30.7 - 35.5 g/dL LAB HEMATOLOGY METHOD 01/12/2025 6:24 PM EDT [facility] RDW 11.7 11.5 - 14.5 % LAB HEMATOLOGY METHOD 01/12/2025 6:24 PM EDT [facility] MPV 11.7 8.8 - 12.5 fL LAB HEMATOLOGY METHOD 01/12/2025 6:24 PM EDT [facility] nRBC 0.0 <=0.0 per 100 WBCs LAB HEMATOLOGY METHOD 01/12/2025 6:24 PM EDT [facility] Differential Type Automated LAB HEMATOLOGY METHOD 01/12/2025 6:24 PM EDT [facility] Neutrophils % 60 % LAB HEMATOLOGY METHOD 01/12/2025 6:24 PM EDT [facility] Lymphocytes % 26 % LAB HEMATOLOGY METHOD 01/12/2025 6:24 PM EDT [facility] Monocytes % 9 % LAB HEMATOLOGY METHOD 01/12/2025 6:24 PM EDT [facility] Eosinophils % 3 % LAB HEMATOLOGY METHOD 01/12/2025 6:24 PM EDT [facility] Basophils % 1 % LAB HEMATOLOGY METHOD 01/12/2025 6:24 PM EDT [facility] Immature Granulocytes % 1 % LAB HEMATOLOGY METHOD 01/12/2025 6:24 PM EDT [facility] Neutrophils Absolute 2.70 1.60 - 6.10 10*3/uL LAB HEMATOLOGY METHOD 01/12/2025 6:24 PM EDT [facility] Lymphocytes Absolute 1.17(L) 1.20 - 3.90 10*3/uL LAB HEMATOLOGY METHOD 01/12/2025 6:24 PM EDT [facility] Monocytes Absolute 0.39 0.30 - 0.90 10*3/uL LAB HEMATOLOGY METHOD 01/12/2025 6:24 PM EDT [facility] Eosinophils Absolute 0.14 0.00 - 0.50 10*3/uL LAB HEMATOLOGY METHOD 01/12/2025 6:24 PM EDT [facility] Basophils Absolute 0.02 0.00 - 0.10 10*3/uL LAB HEMATOLOGY METHOD 01/12/2025 6:24 PM EDT [facility] Immature Granulocytes Absolute 0.02 0.00 - 0.06 10*3/uL LAB HEMATOLOGY METHOD 01/12/2025 6:24 PM EDT [facility] Blood Venous blood specimen / Unknown Venipuncture / Unknown 01/12/2025 4:35 PM EDT 01/12/2025 4:36 PM EDT Narrative [facility] - 01/12/2025 6:24 PM EDT Therapeutic decision making should be based on absolute values, rather than percentages. Ruby Mancini MD LAB BLOOD ORDERABLES Final Result [facility] [address] [place] [address] documented in this encounter Visit Diagnoses Diagnosis Seizure (CMS/HCC)- Primary Other convulsions documented in this encounter Additional Health Concerns Assessment Noted Time A fall risk assessment has been complete d for the patient 01/12/2025 3:10 PM EDT A Body Mass Index follow-up plan has been documented for the patient 01/13/2025 10:35 AM EDT documented as of this encounter Care Teams Butadiene Converter Utility Operator Relationship Specialty Start Date End Date Adiel Beltre DO [address] [place] [address] PCP - General 09/09/24 Woodrow Hess MD [address] [place] [address] Resident Neurology 01/12/25 documented as of this encounter
--- NOTE | 2025-02-14 23:26 | ECG_ITS ---
APPROVED REPORT Exam: Resting ECG HR:52 bpm ECG Measurements Heart Rate 52 AXES CO 127 P 37 QRSd 101 QRS 64 QT 374 T 6 QTc 355 Conclusion SINUS BRADYCARDIA WITH SINUS ARRHYTHMIA MODERATE ST DEPRESSION [0.05+ mV ST DEPRESSION] ABNORMAL ECG No STEMI Electronically signed by : MANAV MARCUM, 02/15/2025 05:15:04
[2025-02-14 23:27] VITALS: BP 144/72; PULSE 55; RESP 16; TEMP 36.6; O2SAT 98; BMI 26.4
[2025-02-14 23:31] VITALS: PULSE 55
--- OUTSIDE RECORDS SUMMARY | 2025-02-14 23:35 | XMS_ITS | Clinical Summary ---
Author Organization [facility] Address [address] [facility] [address] [place] [address] Care Team Providers Care Cook Chili Name Role Phone Unavailable Primary Care Provider [...] age to complete this topic Insurance AENA [facility]
--- OUTSIDE RECORDS SUMMARY | 2025-02-14 23:35 | XMS_ITS | Encounter Summary ---
Author Organization Healthcare Address [address] [place] [address] Care Team Providers Care Senior Engineering Technician Name Role Phone Adiel Beltre DO Primary Care Provider [phone] Encounter Details Date Type Department Care Team (Late st Contact Info) Description 01/07/2025 Telephone [facility] [address], 1st [place] [address] Zzzneurology, Physician, [address] [place], [place] [phone] Social History Tobacco Use Types Packs/Day Years [...] PM EDT Appointment P[facility] H Neurophysiology 800 [facility] [address] Room [address] [address] 04/14/2025 2:30 PM EST Office Visit [facility] [address], [address] [place] [address] Woodrow Hess MD [address] [place] [address] documented as of this encounter Visit Diagnoses Not on filedocumented in this encounter Care Teams Senior Engineering Technician Relationship Specialty Start Date End Date Adiel Beltre DO [address] [place] [address] [place] [address] PCP - General 09/09/24 documented as of this encounter
--- OUTSIDE RECORDS SUMMARY | 2025-02-14 23:35 | XMS_ITS | Clinical Summary ---
Author Organization Healthcare Address [address] [place] [address] Care Team Providers Care Secretary Of State Name Role Phone Adiel Beltre Aishwarya MODI Primary Care Provider [phone] Woodrow Hess MD Unavailable Allergies Active Allergy Reactions Criticality Noted Date Comments Tape/Bandaid Adhesive Rash Low 01/12/2025 Rash, burning sensation Medications bisoprolol (Zebeta) 5 MG tablet Take 1 tablet by mouth daily. 5 Active Farxiga 10 MG tablet 5 Active omeprazole (PriLOSEC) [address] capsule Take 1 capsule by mouth daily. 5 Active ondansetron ODT (Zofran-ODT) 4 MG disintegrating tablet DISSOLVE 1 TABLET ON THE TONGUE EVERY 8 HOURS NEEDED FOR NAUSEA AND VOMITING 5 Active Entresto 24-26 MG tablet 4 Active spironolactone (Aldactone) 25 MG tablet 5 Active albuterol 108 (90 Base) MCG/ACT inhaler Inhale 2 puffs 4 times a day. Active levETIRAcetam (Keppra) 750 MG tablet Take 1 tablet by mouth 2 times a day. 60 tablet 2 5 Active Encounters Date Type Department Care Team Description 01/12/2025 3:00 PM EDT Office Visit [place] [facility] [address], [address] [place] [address] Woodrow Hess MD Seizure (CMS/HCC) (Primary Dx) 01/12/2025 Travel 01/07/2025 Telephone [facility] [address], [address] [place] [address] Zzzneurology, Physician, 01/02/2025 Orders Only External Location [address] [place] [address] Provider, External 01/02/2025 Orders Only External Location [address] [place] [address] Provider, External from Last 3 [...] EDT Appointment [facility] Neuro[facility] [address] [place] [address] 04/14/2025 2:30 PM EST Office Visit [place] [facility] [address], [address] [place] [address] Woodrow Hess MD [address] [place] [address] Health Maintenance Due Date Last Done Comments [facility]-Depression Screening 2003 [facility]-HIV Screening 2003 [facility]-Hepatitis C Screening 2003 [facility]-Infant/Child/Adol SDOH Screenings 2003 HPV Vaccines (1 - Male 3-dose series) 2018 [facility]- SDOH Screenings 2021 [facility]-Adult SDOH Screenings 2021 [id number] Vaccine (1 - season) 2024 [facility]-Influenza Vaccine [...] - 46.0 ug/mL 01/13/2025 7:48 PM EDT [facility] Blood Venous blood specimen / Unknown Venipuncture / Unknown 01/12/2025 4:35 PM EDT 01/12/2025 4:36 PM EDT Narrative [facility] - 01/13/2025 7:48 PM EDT Test performed by LC-MS/MS at the [facility]. This test was developed and its performance characteristics determined by [facility]. It has not been cleared or approved by the FDA. The laboratory is regulated under CLIA as qualified to perform high-complexity testing. This test is used for clinical purposes. Ruby Mancini MD LAB BLOOD ORDERABLES Final Result [facility] [address] [place] [address] * (ABNORMAL) CBC and differential (01/12/2025 4:35 PM EDT) WBC Count 4.44 3.70 - 10.30 10*3/uL LAB HEMATOLOGY METHOD 01/12/2025 6:24 PM EDT [facility] RBC Count 4.98 4.60 - 6.10 10*6/uL LAB HEMATOLOGY METHOD 01/12/2025 6:24 PM EDT [facility] HGB 16.0 13.7 - 17.5 g/dL LAB HEMATOLOGY METHOD 01/12/2025 6:24 PM EDT [facility] HCT 43.5 40.0 - 51.0 % LAB HEMATOLOGY METHOD 01/12/2025 6:24 PM EDT [facility] Platelet Count 150(L) 155 - 369 10*3/uL LAB HEMATOLOGY METHOD 01/12/2025 6:24 PM EDT [facility] MCV 87 79 - 98 fL LAB HEMATOLOGY METHOD 01/12/2025 6:24 PM EDT [facility] MCH 32.1(H) 26.0 - 32.0 pg LAB HEMATOLOGY METHOD 01/12/2025 6:24 PM EDT [facility] MCHC 36.8(H) 30.7 - 35.5 g/dL LAB HEMATOLOGY METHOD 01/12/2025 6:24 PM EDT [facility] RDW 11.7 11.5 - 14.5 % LAB HEMATOLOGY METHOD 01/12/2025 6:24 PM EDT [facility] MPV 11.7 8.8 - 12.5 fL LAB HEMATOLOGY METHOD 01/12/2025 6:24 PM EDT [facility] nRBC 0.0 <=0.0 per 100 WBCs LAB HEMATOLOGY METHOD 01/12/2025 6:24 PM EDT [facility] Differential Type Automated LAB HEMATOLOGY METHOD 01/12/2025 6:24 PM EDT [facility] Neutrophils % 60 % LAB HEMATOLOGY METHOD 01/12/2025 6:24 PM EDT [facility] Lymphocytes % 26 % LAB HEMATOLOGY METHOD 01/12/2025 6:24 PM EDT [facility] Monocytes % 9 % LAB HEMATOLOGY METHOD 01/12/2025 6:24 PM EDT [facility] Eosinophils % 3 % LAB HEMATOLOGY METHOD 01/12/2025 6:24 PM EDT [facility] Basophils % 1 % LAB HEMATOLOGY METHOD 01/12/2025 6:24 PM EDT [facility] Immature Granulocytes % 1 % LAB HEMATOLOGY METHOD 01/12/2025 6:24 PM EDT [facility] Neutrophils Absolute 2.70 1.60 - 6.10 10*3/uL LAB HEMATOLOGY METHOD 01/12/2025 6:24 PM EDT [facility] Lymphocytes Absolute 1.17(L) 1.20 - 3.90 10*3/uL LAB HEMATOLOGY METHOD 01/12/2025 6:24 PM EDT [facility] Monocytes Absolute 0.39 0.30 - 0.90 10*3/uL LAB HEMATOLOGY METHOD 01/12/2025 6:24 PM EDT [facility] Eosinophils Absolute 0.14 0.00 - 0.50 10*3/uL LAB HEMATOLOGY METHOD 01/12/2025 6:24 PM EDT [facility] Basophils Absolute 0.02 0.00 - 0.10 10*3/uL LAB HEMATOLOGY METHOD 01/12/2025 6:24 PM EDT [facility] Immature Granulocytes Absolute 0.02 0.00 - 0.06 10*3/uL LAB HEMATOLOGY METHOD 01/12/2025 6:24 PM EDT [facility] Blood Venous blood specimen / Unknown Venipuncture / Unknown 01/12/2025 4:35 PM EDT 01/12/2025 4:36 PM EDT [facility] - 01/12/2025 6:24 PM EDT Therapeutic decision making should be based on absolute values, rather than percentages. us Ruby Mancini MD LAB BLOOD ORDERABLES Final Result [facility] [address] [place] [address] * Comprehensive metabolic panel (01/12/2025 4:35 PM EDT) Glucose, Plasma 80 74 - 99 mg/dL 01/12/2025 6:31 PM EDT [facility] BUN, Plasma 15 7 - 21 mg/dL 01/12/2025 6:31 PM EDT [facility] Creatinine, Plasma 1.00 0.70 - 1.20 mg/dL 01/12/2025 6:31 PM EDT [facility] BUN/Creatinine Ratio 15 01/12/2025 6:31 PM EDT [facility] Sodium, Plasma 140 136 - 145 mmol/L 01/12/2025 6:31 PM EDT [facility] Potassium, Plasma 4.3 3.6 - 4.9 mmol/L 01/12/2025 6:31 PM EDT [facility] Chloride, Plasma 105 97 - 107 mmol/L 01/12/2025 6:31 PM EDT [facility] CO2, Plasma 25 22 - 29 mmol/L 01/12/2025 6:31 PM EDT [facility] Anion Gap 10 6 - 16 mmol/L 01/12/2025 6:31 PM EDT [facility] Total Calcium, Plasma 9.3 8.9 - 10.2 mg/dL 01/12/2025 6:31 PM EDT [facility] Total Protein 7.5 6.3 - 7.9 g/dL 01/12/2025 6:31 PM EDT [facility] Albumin, Plasma 4.8 3.5 - 5.2 g/dL 01/12/2025 6:31 PM EDT [facility] AST, Plasma 22 10 - 50 U/L 01/12/2025 6:31 PM EDT [facility] ALT, Plasma 15 10 - 50 U/L 01/12/2025 6:31 PM EDT [facility] Alkaline Phosphatase, Plasma 96 40 - 115 U/L 01/12/2025 6:31 PM EDT [facility] Total Bilirubin, Plasma 0.7 0.2 - 1.1 mg/dL 01/12/2025 6:31 PM EDT [facility] eGFRcr 109.8 mL/min/1.7 3m*2 01/12/2025 6:31 PM EDT [facility] Comment:Reported eGFRcr in m L/min/1.73m2 is based the CKD-EPI 2020 equation that does not use a race coefficient. Blood Venous blood specimen / Unknown Venipuncture / Unknown 01/12/2025 4:35 PM EDT 01/12/2025 4:36 PM EDT us Ruby Mancini MD LAB BLOOD ORDERABLES Final Result [facility] [address] [place] [address] * XR OUTSIDE IMAGES (01/02/2025 8:14 PM [...] Months Insurance AETNA [facility] MEDICAID [facility] MEDICAID DENTAL Care Teams Secretary Of State Relationship Specialty Start Date End Date Adiel Beltre DO [facility] [address] [place] [address] PCP - General 09/09/24 Woodrow Hess MD [address] [place] [id number] Resident Neurology 01/12/25
--- OUTSIDE RECORDS SUMMARY | 2025-02-14 23:35 | XMS_ITS | Encounter Summary ---
Author Organization Healthcare Address [address] [place] [address] Care Team Providers Care Milling Machinist Name Role Phone Adiel Beltre Aishwarya MODI Primary Care Provider [phone] Encounter Details Date Type Department Care Team (Late st Contact Info) Description 01/02/2025 Orders Only External Location [address] [place] [address] Provider, External Social History Tobacco Use Types [...] PM EDT Appointment [facility] Neurophysiology 800 [facility] [address] [place] [address] 04/14/2025 2:30 PM EST Office Visit [place] [facility] [address] [place] [address] Woodrow Hess MD [address] [place] [address] documented as of this encounter Procedures Procedure [...] on filedocumented in this encounter Care Teams Milling Machinist Relationship Specialty Start Date End Date Adiel Beltre DO [address] [place] [address] [place] [address] PCP - General 09/09/24 documented as of this encounter
--- OUTSIDE RECORDS SUMMARY | 2025-02-14 23:35 | XMS_ITS | Encounter Summary ---
Author Organization Healthcare Address [address] [place] [address] Care Team Providers Care Lower [employer] Music Teacher Name Role Phone Adiel Beltre Aishwarya MODI Primary Care Provider [phone] Encounter Details Date Type Department Care Team (Late st Contact Info) Description 01/02/2025 Orders Only External Location [address] [place] [address] Provider, External Social History Tobacco Use Types [...] PM EDT Appointment [facility] Neurophysiology [address] [facility] [address] [place] [address] 04/14/2025 2:30 PM EST Office Visit [place] [facility] [address] [place] [address] Woodrow Hess MD [address] [place] [address] documented as of this encounter Procedures Procedure [...] on filedocumented in this encounter Care Teams Lower School Music Teacher Relationship Specialty Start Date End Date Adiel Beltre DO [address] [place] [address] [facility] [place] [address] PCP - General 09/09/24 documented as of this encounter
--- OUTSIDE RECORDS SUMMARY | 2025-02-14 23:35 | XMS_ITS | Encounter Summary ---
Author Organization Healthcare Address [address] [place] [address] Care Team Providers Care Installation Supervisor Name Role Phone Adiel Beltre DO Primary Care Provider [phone] Woodrow Hess MD Unavailable Reason for Referral * Consultation (Routine) - Authorized Specialty Diagnoses / Procedures Referred By Kavitha garber Referred To Contact Oral Surgery Diagnoses Extraction of tooth needed Aaron Velasquez DMD [address] [place] [address] [address] Phone: tel: fax: [facility] [address] [place] [address] [address] [place] [address] Phone: tel: Referral ID Status Reason Start Date Expiration Date Visits Requested Visits Authorized [id number] Authorized Specialty Services Required 10/16/2024 04/17/2026 1 1 Encounter Details Date Type Department Care Team (Late st Contact Info) Description 10/16/2024 Community Orders Community Practice [address] [place] [address] Aaron Velasquez DMD [address] [place] [address] Extraction of tooth needed (Primary Dx) Social [...] [address] [place] [address] 04/14/2025 2:30 PM EST Office Visit [place] [facility] [address], [address] [place] [address] Woodrow Hess MD [address] [place] [address] Scheduled Referrals Name Type Priority Associated Diagnoses Order Schedule Ambulatory referral to Oral Maxillofacial Surgery Outpatient Referral Routine Extraction of tooth needed Ordered: 10/16/2024 documented as of this encounter Visit Diagnoses Diagnosis Extraction of tooth needed- Primary documented in this encounter Care Teams Installation Supervisor Relationship Specialty Start Date End Date Adiel Beltre DO [facility] [address] [place] [address] PCP - General 09/09/24 Woodrow Hess MD [address] [place] [address] Resident Neurology 01/12/25 documented as of this encounter
--- OUTSIDE RECORDS SUMMARY | 2025-02-14 23:35 | XMS_ITS | Encounter Summary ---
Author Organization Healthcare Address [address] [place] [address] Care Team Providers Care Generator Worker Name Role Phone Adiel Beltre DO Primary Care Provider [phone] Woodrow Hess MD Unavailable Encounter Details Date [...] PM EDT Appointment [facility] Neurophysiology [address] [facility] [address] [place] [address] 04/14/2025 2:30 PM EST Office Visit [place] [facility] [address] [place] [address] Woodrow Hess MD [address] [place] [address] documented as of this encounter Visit Diagnoses Not on filedocumented in this encounter Additional Health Concerns Assessment Noted Time A fall risk assessment has been complete d for the patient 01/12/2025 3:10 PM EDT A Body Mass Index follow-up plan has been documented for the patient 01/13/2025 10:35 AM EDT documented as of this encounter Care Teams Generator Worker Relationship Specialty Start Date End Date Adiel Beltre DO [facility] [address] [place] [address] PCP - General 09/09/24 Woodrow Hess MD [address] [place] [address] Resident Neurology 01/12/25 documented as of this encounter
[2025-02-14 23:41] VITALS: BP 124/76; PULSE 47; O2SAT 98
[2025-02-14 23:44] LABS: Hematocrit 41.9 % (42.0-52.0); Hemoglobin 15.5 g/dL (14.1-18.0); Immature Granulocytes % 0.2 %; Mean Corpuscular HGB Conc 37.0 g/dL (31.8-35.4); Mean Corpuscular Hemoglobin 31.6 pg (27.0-31.2); Mean Corpuscular Volume 85.5 fl (80-94); Nucleated Red Blood Cells % 0 %; Platelet Count 151 K/mm3 (142-424); Red Blood Count 4.90 M/mm3 (4.60-6.20); Red Cell Distribution Width-SD 34.8 fL; White Blood Count 5.3 K/mm3 (4.8-10.8)
[2025-02-14 23:51] LABS: Albumin Level 4.6 g/dl (3.5-5.0); Chloride 106 mmol/L (98-107); Potassium 3.9 mmoL/L (3.5-5.1); Sodium 137 mmol/L (136-145)
[2025-02-14 23:54] LABS: Alanine Aminotransferase 16 U/L (12-78); Albumin/Globulin Ratio 1.6 (1.1-1.8); Alkaline Phosphatase 79 U/L (38-126); Anion Gap 9.9 mEq/L (5-15); Aspartate Amino Transferase 33 U/L (17-59); Bilirubin,Total 0.7 mg/dl (0.2-1.3); Blood Urea Nitrogen 18 mg/dl (9-20); Calcium 9.1 mg/dl (8.4-10.2); Carbon Dioxide 25 mmol/L (22.0-30.0); Creatinine Clearance Estimated 167 mL/min (50-200); Creatinine,Serum 0.90 mg/dl (0.66-1.25); Estimated Glomerular Filt Rate 107 ml/min (>60); GFR (African American) 129 ML/MIN (>60); Globulin 2.8 g/dL (1.3-3.2); Glucose 99 mg/dl (74-100); INR 1.07 (0.9-1.1); Prothrombin Time 11.8 seconds (10.1-12.5); Total Protein,Serum 7.4 g/dl (6.3-8.2)
[2025-02-15] VITALS (11 sets, daily range): BP systolic 100–129; BP diastolic 57–82; PULSE 40–72; RESP 12–18; TEMP 36.6–36.7; O2SAT 97–100; BMI 27.4; BMI 27.5
--- NOTE | 2025-02-15 | XR_ITS ---
PROCEDURE INFORMATION: Exam: XR Chest Exam date and time: 02/15/2025 12:07 AM Age: 19 years old Clinical indication: Pain; Left-sided; Additional info: Chest pain TECHNIQUE: Imaging protocol: Radiologic exam of the chest. Views: 2 views. COMPARISON: CR XR CHEST PORTABLE 01/02/2025 8:14 PM FINDINGS: Lungs: Unremarkable. No consolidation. Pleural spaces: Unremarkable. No pleural effusion. No pneumothorax. Heart/Mediastinum: Unremarkable. No cardiomegaly. Bones/joints: Unremarkable. IMPRESSION: No acute findings.
[2025-02-15] MEDS: ASPIRIN 81MG CHEWABLE TABLET 324 MG PO (00:09)
[2025-02-15 00:12] LABS: Troponin I < 0.01 ng/ml (0.00-0.034)
[2025-02-15 00:34] LABS: NT Pro Brain Natriuretic Pep. < 20.0 pg/mL (0-125)
--- NOTE | 2025-02-15 01:06 | P.HP_ITS ---
History of Present Illness *Admission Date: 02/15/25 *Reason for visit:: chest pain *History of present illness: 19-year-old male with history of heart failure with mildly reduced ejection fraction, nonischemic cardiomyopathy, seizure disorder who presents with intermittent chest pain over the past 2 days. Also reports some increased dizziness over the past day. Recently was started on BuSpar. Spironolactone was decreased at his cardiology appointment on 02/10. Denies syncope. Denies nausea or vomiting. Denies shortness of breath. Has not had a seizure in well over a month. Follows with neurology at , was recently switched to Keppra 750 mg twice daily from 1000 twice daily in the past 2 months. Denies any recent trauma. Has been moving however and packing with his fianc?e as they are expecting a child. Workup in the ER with initial troponin less than 0.01. EKG with no ST elevations. Previous echo showed EF of 45%. Follows closely with cardiology. Has had workup including CCTA and MRI to evaluate his cardiomyopathy. Nonischemic at this time. Given his chest pain however, patient is high risk and would benefit from observation to monitor for improvement with cardiology evaluation. Medicine consulted for eval and further management. You were most on arrival to the floor, patient is an inconsistent historian. His responses are slow. Has a difficult time recalling specific time frames. Previously smoked and drank but does not anymore per his report. Stable on room air. No pain on palpation. [facility] Disclaimer: The information contained in this section may have been updated after the patient was seen, as this information can be updated by other users. Medical History Heart failure with mildly reduced ejection fraction (HFmrEF) Palpitations Abnormal findings on diagnostic imaging of heart and coronary circulation HFrEF (heart failure with reduced ejection fraction) Daytime somnolence Snoring ASD (atrial septal defect) Abnormal computed tomography angiography (CTA) Cardiomyopathy Syncope Orthostatic hypotension Pulmonary valve regurgitation Diastolic dysfunction Burning chest pain Chest pain Systolic heart failure Abnormal electrocardiogram [ECG] [EKG] Asthma Surgical History No history of previous surgery Family History Family history of heart disease Diabetes Alcoholism Stroke Social History (Updated 02/15/25 @ 02:46 by Yana Elkins RN) Smoking Status: Former smoker alcohol intake: former substance use type: marijuana current occupational status: unemployed and disabled Travel in the last 8 weeks?: None household members: family housing: house marital status: single caffeine: Yes Other Medical History Have you received the Flu Vaccine for this season: No Have you received the Pneumonia Vaccine: No Review of Systems Review of Systems Review of systems (narrative): 14 point review of systems performed, pertinent positives and negatives as per HPI Meds Home Medications and Allergies Home Medications ?Medication ?Instructions ?Recorded ?Confirmed ?Type Farxiga 10 mg tablet 10 mg PO DAILY #30 tabs /12/0302/15/25 Rx (dapagliflozin propanediol) albuterol sulfate 90 mcg/actuation 2 puff inhalation Q 6H PRN 01/06/25 02/15/25 Rx aerosol inhaler (Ventolin HFA) shortness of breath or wheezing #8.5 grams omeprazole 20 mg capsule,delayed 20 mg PO DAILY #30 ca ps 01/06/25 02/15/25 Rx release ondansetron 4 mg disintegrating 4 mg PO Q8H PRN nausea and 01/06/25 02/15/25 Rx tablet vomiting #30 tabs blood pressure monitor (Blood #1 ea 02/10/25 02/10/25 Rx Pressure Kit) buspirone 10 mg tablet 10 mg PO TID #90 tabs 02/15/25 Rx spironolactone 25 mg tablet 12.5 mg (1/2 x 25 mg) PO D AILY 30 02/10/25 02/15/25 Rx days #15 tabs bisoprolol fumarate 5 mg tablet 5 mg PO DAILY 02/15/25 02/15/25 History levetiracetam 1,000 mg tablet 750 mg PO BID 02/15/25 0 02/15/25 History sacubitril 24 mg-valsartan 26 mg 24 - 26 tab PO BID 02/15/25 History tablet (Entresto) New Prescriptions to Start Prescriptions: Allergies Allergy/AdvReac Type Severity Reaction Status Date / Time adhesive Allergy Hives Verified 02/10/25 15:29 Exam Data for Last 24 hours Vital signs and Labs for Last 24 Hours: Temp Pulse Resp BP Pulse Ox O2 Del Method 97.9 F 47 L 16 129/70 99 Room Air 02/14/25 23:27 02/15/25 00:41 02/14/25 23:27 02/15/25 00:41 02/15/25 00:41 02/14/25 23:27 Laboratory Results - last 24 hr 02/14/25 23:38: WBC 5.3, RBC 4.90, Hgb 15.5, Hct 41.9 L, MCV 85.5, MCH 31.6 H, MCHC 37.0 H, RDW 11.3 L, Plt Count 151, MPV 10.4, Neut % (Auto) 52.2, Lymph % (Auto) 33.8, Power % (Auto) 9.8 H, Eos % (Auto) 3.2, Baso % (Auto) 0.8, Neut # (Auto) 2.8, Lymph # (Auto) 1.8, Power # (Auto) 0.5, Eos # (Auto) 0.2, Baso # (Auto) 0.0, PT 11.8, INR 1.07, Sodium 137, Potassium 3.9, Chloride 106, Carbon Dioxide 25, Anion Gap 9.9, BUN 18, Creatinine 0.90, Estimated Creat Clear 167, Estimated GFR 107, Est GFR ( Amer) 129, Glucose 99, Calcium 9.1, Total Bilirubin 0.7, AST 33, ALT 16, Alkaline Phosphatase 79, Troponin I < 0.01, NT-Pro-B Natriuret Pep < 20.0, Total Protein 7.4, Albumin 4.6, Globulin 2.8, Albumin/Globulin Ratio 1.6 I & O for Last 24 hours: Intake & Output 02/12/25 02/13/25 02/14/25 02/15/25 23:59 23:59 23:59 23:59 Weight 90.718 kg Constitutional Constitutional: no acute distress, average body habitus and cooperative *Routine HEENT Exam Head: Present normocephalic Eye: Present EOMI and PERRL ENT: Present mucous membranes moist *Routine Neck Exam Neck: Present supple; Absent lymphadenopathy Routine Chest/Breast/Axilla Exam Chest wall: Absent tenderness *Routine Respiratory Exam Respiratory: Present CTA bilaterally; Absent rhonchi, wheezes or crackles *Routine Cardiovascular Exam Cardiovascular: Present RRR *Routine Abdominal Exam Abdominal: Present soft and normoactive bowel sounds; Absent tenderness *Routine Rectal Exam Rectal:: deferred *Routine Genitalia Exam Genitalia:: deferred *Routine Extremities Exam Extremities: Absent cyanosis, clubbing or edema *Routine Skin Exam Skin: Present intact and warm; Absent rash *Routine Neurological Exam Neurological: Present alert, oriented X3 and moving all extremities; Absent altered mental status Routine Psychiatric Exam Psychiatric: Present normal affect Assessment and Plan *Assessment and plan (1) Chest pain: Status: Acute Category: Medical Code(s): R07.9 - Chest pain, unspecified (2) Epilepsy: Status: Chronic Category: Medical Code(s): G40.909 - Epilepsy, unspecified, not intractable, without status epilepticus (3) Heart failure with mildly reduced ejection fraction (HFmrEF): Status: Chronic Category: Medical Code(s): I50.20 - Unspecified systolic (congestive) heart failure (4) Cardiomyopathy: Status: Acute Qualifiers: Cardiomyopathy type: other Qualified Code(s): I42.8 - Other cardiomyopathies Category: Medical Code(s): I42.9 - Cardiomyopathy, unspecified (5) Mood disorder: Status: Acute Category: Medical Code(s): F39 - Unspecified mood [affective] disorder (6) ASD (atrial septal defect): Status: Chronic Category: Medical Code(s): Q21.10 - Atrial septal defect, unspecified Plan 19-year-old male with history of cardiomyopathy and mildly reduced ejection fraction. Presented with chest pain. Recently started new medication for mood disorder (BuSpar). Workup in the ER with normal troponin. Given cardiac history and persistent chest pain however, discussed case with ER physician and they request admission for further management and cardiology evaluation. Agreed to admit for further care. Serial troponins pending. Problems addressed as follows Chest pain Heart failure with mildly reduced ejection fraction Nonischemic cardiomyopathy Dizziness - chest x-ray per my review with no consolidation or rib abnormalities. Essentially benign - Initial troponin less than 0.01. Will repeat 3-hour troponin. If remains negative, will hold on 6-hour troponin. INR 1.07. - Kidney function and electrolytes normal with sodium 137, potassium 3.9, BUN 18 creatinine 0.9 - White cell count 5.3, hemoglobin 15.5. Platelets 151 - Reviewed patient's chart, - echo from July 2023 with mildly reduced ejection fraction 40 to 45%, mild RV dilation and mild reduction in RV function. - Known intra-arterial shunt based on prior CCTA - Calcium score from CCTA of 0 in November 2022 - Continue Entresto 24/26 mg twice daily - As patient is not having dizziness, we will hold the spironolactone. Decrease bisoprolol to 2.5 milligrams daily - Continue Farxiga 10 mg daily - Repeat CBC, CMP, magnesium ordered for the morning Seizure disorder: Continue Keppra 750 mg twice daily Holding BuSpar due to concern that it is a culprit in patient's chest pain Continue PPI nightly for GERD Full code Lovenox 40 mg subcu daily Regular diet
[2025-02-15] MEDS: BELLADONNA ALKALOIDS 60 ML ML PO (01:11)
--- NOTE | 2025-02-15 03:15 | [facility]H.EDCP ---
Discharge Plan Disposition Patient Disposition: Admitted Condition: Good Clinical Impressions Clinical Impression: Chest pain Discharge ED Provider: Sherly Castillo General Chief Complaint: Chest Pain Stated Complaint: Chest Pain Time Seen by Provider: 02/14/25 23:32 Mode of Arrival: Ambulatory Source of Information: Patient Description of Symptoms (Recalled from ER Triage Doc. by RN): patient has had chest pain for 2 days; feels like someone hit him in the chest; started a new drug History of Present Illness HPI narrative: 19-year-old male presents to the ER with 2 days of chest pain like someone hit him in the chest. Patient did recently start buspirone and is not sure if this is contributing to his symptoms. He has a history of heart failure, ASD, cardiomyopathy. Patient has no cough or congestion, no difficulty breathing. He states sometimes pain radiates into the back. No dysuria or hematuria. No tearing sensation with the pain. No headache or dizziness, no fevers or chills, no numbness, tingling, or weakness. No abdominal complaints. Related Data Home Medications ?Medication ?Instructions ?Recorded ?Confirmed bisoprolol fumarate 5 mg tablet 5 mg PO DAILY 02/15/25 02/15/25 levetiracetam 1,000 mg tablet 750 mg PO BID 02/15/25 02/15/25 sacubitril 24 mg-valsartan 26 mg 24 - 26 tab PO BID 02/15/25 02/15/25 tablet (Entresto) Previous Rx's ?Medication ?Instructions ?Recorded Farxiga 10 mg tablet 10 mg PO DAILY #30 tabs 09/03/24 (dapagliflozin propanediol) albuterol sulfate 90 mcg/actuation 2 puff inhalation Q6H PRN 01/06/25 aerosol inhaler (Ventolin HFA) shortness of breath or wheezing #8.5 grams omeprazole 20 mg capsule,delayed 20 mg PO DAILY #30 caps 01/06/25 release ondansetron 4 mg disintegrating 4 mg PO Q8H PRN nausea and 01/06/25 tablet vomiting #30 tabs blood pressure monitor (Blood #1 ea 02/10/25 Pressure Kit) buspirone 10 mg tablet 10 mg PO TID #90 tabs 02/10/25 spironolactone 25 mg tablet 12.5 mg (1/2 x 25 mg) PO DAILY 30 02/10/25 days #15 tabs Allergies Allergy/AdvReac Type Severity Reaction Status Date / Time adhesive Allergy Hives Verified 02/10/25 15:29 [facility] Disclaimer: The information contained in this section may have been updated after the patient was seen, as this information can be updated by other users. Medical History Heart failure with mildly reduced ejection fraction (HFmrEF) Palpitations Abnormal findings on diagnostic imaging of heart and coronary circulation HFrEF (heart failure with reduced ejection fraction) Daytime somnolence Snoring ASD (atrial septal defect) Abnormal computed tomography angiography (CTA) Cardiomyopathy Syncope Orthostatic hypotension Pulmonary valve regurgitation Diastolic dysfunction Burning chest pain Chest pain Systolic heart failure Abnormal electrocardiogram [ECG] [EKG] Asthma Surgical History No history of previous surgery Family History Family history of heart disease Diabetes Alcoholism Stroke Social History (Updated 02/15/25 @ 02:46 by Yana Elkins RN) Smoking Status: Former smoker alcohol intake: former substance use type: marijuana current occupational status: unemployed and disabled Travel in the last 8 weeks?: None household members: family housing: house marital status: single caffeine: Yes Contact w/someone who lives/traveled outside [place] past 30 days?: No Exposure to someone with infectious disease in past 14 days?: No Have you tested positive for COVID-19?: No Exposed to someone with COVID-19 in past 14 days?: No Do you have a sore throat?: No Do you have a cough?: No Do you have any weakness?: No Are you experiencing any nausea/vomitting?: No Do you have any diarrhea?: No Are you experiencing any unusual bleeding?: No Do you have any muscle aches/pain?: No Do you have any abdominal pain?: No Are you experiencing loss of taste or smell?: No Other Medical History Have you received the Flu Vaccine for this season: No Have you received the Pneumonia Vaccine: No ROS Obtained: Yes Systems reviewed as appropriate & no additional complaints except as documented Per HPI Physical Exam General General appearance: alert and in no apparent distress Head Head exam: atraumatic and normocephalic Eye Eye exam: Present PERRL and EOMI ENT ENT exam: Present mucous membranes moist Neck Neck exam: Present normal inspection and full ROM Chest Chest inspection: Present symmetric chest wall rise Respiratory Respiratory exam: Present normal lung sounds bilaterally; Absent respiratory distress, wheezes or stridor Cardiovascular Cardiovascular exam: Present normal rhythm and bradycardia (Rate in the mid 50s) Abdominal Exam Abdominal exam: Present soft; Absent distention or tenderness Extremities Exam Extremities exam: Present full ROM Back Exam Back exam: Absent tenderness Neurological Exam Neurological exam: Present alert and oriented X3; Absent motor sensory deficit Psychiatric Psychiatric exam: Present normal affect and normal mood Skin Skin exam: Present warm and dry HEART Score HEART Score HEART Score assessment performed?: Yes History (anamnesis): Slightly suspicious ECG: Non-specific disturbance Age: <45 years Risk factors: 3 or more risk factors Troponin: </= normal limit HEART Score: 3 Critical Care Critical Care Time Critical Care Time: No Medical Decision Making Medical Records Medical records reviewed: Yes I reviewed the patient's medical records. MR Comment: List recent cardiology note with Dr. Alexander reviewed demonstrating patient was started on a new dose of spironolactone. He has evidence of cardiomyopathy, HFrEF with a EF 40 to 45%, mild pulmonary regurgitation, cardiac MRI with cardiomyopathy, intra-atrial shunt, plan to follow-up in 3 months. Alin Inquiry Pt receiving controlled substance: No Vital Signs Vital Signs: 02/14/25 23:27 02/14/25 23:31 02/14/25 23:41 Temperature 97.9 F Temperature Source Oral Pulse Rate 55 L 47 L Pulse Rate [Right Radial] 55 L Respiratory Rate 16 Blood Pressure 124/76 Blood Pressure [Right Radial Artery] 144/72 H Blood Pressure Mean [Right Radial Artery] 96 Blood Pressure Source Blood Pressure Source [Right Radial Artery] Automatic Cuff Blood Pressure Position Blood Pressure Position [Right Radial Artery] Supine 02 Sat by Pulse Oximetry 98 98 Oxygen Delivery Method Room Air 02/15/25 00:01 02/15/25 00:41 02/15/25 01:18 Temperature 97.9 F Temperature Source Pulse Rate 52 L 47 L 52 L Pulse Rate [Right Radial] Respiratory Rate 16 Blood Pressure 102/60 L 129/70 129/70 Blood Pressure [Right Radial Artery] Blood Pressure Mean [Right Radial Artery] Blood Pressure Source Automatic Cuff Blood Pressure Source [Right Radial Artery] Blood Pressure Position Sitting Blood Pressure Position [Right Radial Artery] 02 Sat by Pulse Oximetry 99 99 Oxygen Delivery Method Room Air Lab Data Labs: Lab Results 02/14/25 23:38: WBC 5.3, RBC 4.90, Hgb 15.5, Hct 41.9 L, MCV 85.5, MCH 31.6 H, MCHC 37.0 H, RDW 11.3 L, Plt Count 151, MPV 10.4, Neut % (Auto) 52.2, Lymph % (Auto) 33.8, Iron % (Auto) 9.8 H, Eos % (Auto) 3.2, Baso % (Auto) 0.8, Neut # (Auto) 2.8, Lymph # (Auto) 1.8, Iron # (Auto) 0.5, Eos # (Auto) 0.2, Baso # (Auto) 0.0, PT 11.8, INR 1.07, Sodium 137, Potassium 3.9, Chloride 106, Carbon Dioxide 25, Anion Gap 9.9, BUN 18, Creatinine 0.90, Estimated Creat Clear 167, Estimated GFR 107, Est GFR ( Amer) 129, Glucose 99, Calcium 9.1, Total Bilirubin 0.7, AST 33, ALT 16, Alkaline Phosphatase 79, Troponin I < 0.01, NT-Pro-B Natriuret Pep < 20.0, Total Protein 7.4, Albumin 4.6, Globulin 2.8, Albumin/Globulin Ratio 1.6 02/14/25 23:38 02/14/25 23:38 Response Orders (Tests/Meds): ED MEDICATIONS Generic Name Dose Route Start Last Admin Trade Name Escobarq PRN Reason Stop Dose Admin Acetaminophen 650 mg 02/15/25 00:56 Acetaminophen 325mg Tab PO 03/17/25 00:55 Q4HP PRN Fever or Mild Pain (1-3) Belladonna Alkaloids 60 ml 02/15/25 01:01 02/15/25 01:11 Belladonna Alkaloids 60 Ml Ml PO 02/15/25 01:02 60 ml ONCE ONE Administration Bisoprolol Fumarate 2.5 mg 02/15/25 09:00 Bisoprolol 5mg Tablet PO 03/17/25 08:59 DAILY JORDY Dapagliflozin 10 mg 02/15/25 09:00 Dapagliflozin Propanediol 10 Mg Tablet PO 03/17/25 08:59 DAILY ON LICENSE OF [facility] Enoxaparin Sodium 40 mg 02/15/25 09:00 Enoxaparin 40mg/0.4ml Syringe SUBCUT 03/17/25 08:59 DAILY ON LICENSE OF [facility] Levetiracetam 750 mg 02/15/25 09:00 Levetiracetam 500 Mg Tablet PO 03/17/25 08:59 BID ON LICENSE OF [facility] Morphine Sulfate 2 mg 02/15/25 02:18 Morphine 4mg/Ml Syringe IV 03/17/25 01:00 Q4HP PRN Severe Pain (7-10) Nicotine 21 mg 02/15/25 01:01 Nicotine 21mg/24hr Patch TD 03/17/25 01:00 DAILYP PRN Nicotine Cravings Nitroglycerin 0.4 mg 02/14/25 23:32 Nitroglycerin 0.4mg Sl Tablet SL 02/15/25 23:32 Q5MINP PRN Chest Pain Ondansetron HCl 4 mg 02/15/25 00:56 Ondansetron 4mg/2ml Vial IV 03/17/25 00:55 Q8HP PRN Nausea Pantoprazole Sodium 40 mg 02/15/25 21:00 Pantoprazole 40mg Tablet PO 03/17/25 20:59 HS ON LICENSE OF [facility] Sacubitril/Valsartan 1 each 02/15/25 09:00 Sacubitril/Valsartan 24-26mg Tablet PO 03/17/25 08:59 BID ON LICENSE OF [facility] Discontinued Medications Generic Name Dose Route Start Last Admin Trade Name Freq PRN Reason Stop Dose Admin Aspirin 324 mg 02/14/25 23:32 02/15/25 00:09 Aspirin 81mg Chewable Tablet PO 02/14/25 23:33 324 mg ONCE ONE Administration Bisoprolol Fumarate 5 mg 02/15/25 09:00 Bisoprolol 5mg Tablet PO 03/17/25 08:59 DAILY ON LICENSE OF [facility] Levetiracetam 1,000 mg 02/15/25 09:00 Levetiracetam 500 Mg Tablet PO 03/17/25 08:59 BID ON LICENSE OF [facility] Morphine Sulfate 4 mg 02/15/25 01:01 Morphine 4mg/Ml Syringe IV 03/17/25 01:00 Q4HP PRN Severe Pain (7-10) ORDERS Category Date Time Status XR chest 2V Stat Exams 09/07/25 00:00 Completed BNP [NT Pro Brain Natriuretic Pep.] Stat Lab 02/14/25 23:38 Completed Complete Blood Count Auto Diff AMLAB Lab 02/15/25 06:00 Ordered Complete Blood Count Auto Diff Stat Lab 02/14/25 23:38 Completed Comprehensive Metabolic Panel AMLAB Lab 02/15/25 06:00 Ordered Comprehensive Metabolic Panel Stat Lab 02/14/25 23:38 Completed Magnesium AMLAB Lab 02/15/25 06:00 Ordered Prothrombin Time INR Stat Lab 02/14/25 23:38 Completed Troponin I Q3H Lab 02/15/25 02:45 Ordered Troponin I Q3H Lab 02/15/25 05:45 Ordered Troponin I Stat Lab 02/14/25 23:38 Completed MDM Narrative Medical Decision Narrative: In summary, this 19-year-old male comorbidities described in HPI presents to the emergency department today with chest pain. On initial evaluation patient is hemodynamically stable, afebrile, overall well-appearing with a nonfocal exam. Differential diagnosis includes but is not limited to ACS, I considered the possibility of PE but patient is PERC negative, possible esophageal spasm, pneumothorax, electrolyte abnormality, considered CHF exacerbation though I have low suspicion for this clinically. Based on these concerns, I ordered hematologic and serum labs, cardiac workup. ECG personally interpreted demonstrates sinus bradycardia, rate 52, normal axis, normal VA and QTc, patient has slight ST abnormalities but his ECG is overall similar to prior, no STEMI. Patient received aspirin for treatment. Labs personally reviewed demonstrate no leukocytosis or anemia, normal platelets, PT/INR normal, CMP normal, nonactionable, BNP undetectable less than 20, initial troponin undetectably low less than 0.01 which is reassuring but patient reports waxing and waning symptoms and with her structural heart abnormalities I still believe patient will likely require admission. XR personally interpreted demonstrates no acute thoracic abnormality, see radiology read final interpretation. On reassessment patient continues to have waxing and waning discomfort. I believe he requires admission for further workup given his history of structural heart abnormality and persistent chest pain. I discussed this case with Dr. Oro, hospitalist, and he was graciously accepted for admission. Patient admitted in stable condition.
[2025-02-15 04:15] LABS: Troponin I < 0.01 ng/ml (0.00-0.034)
--- NOTE | 2025-02-15 04:15 | PC.NURSE ---
0140: Pt. arrived from the ED to Med/surg floor via W/C to room 212.
[2025-02-15 05:57] LABS: Hematocrit 41.4 % (42.0-52.0); Hemoglobin 15.3 g/dL (14.1-18.0); Immature Granulocytes % 0.3 %; Mean Corpuscular HGB Conc 37.0 g/dL (31.8-35.4); Mean Corpuscular Hemoglobin 31.8 pg (27.0-31.2); Mean Corpuscular Volume 86.1 fl (80-94); Nucleated Red Blood Cells % 0 %; Platelet Count 143 K/mm3 (142-424); Red Blood Count 4.81 M/mm3 (4.60-6.20); Red Cell Distribution Width-SD 35.8 fL; White Blood Count 3.9 K/mm3 (4.8-10.8)
[2025-02-15 06:10] LABS: Albumin Level 4.5 g/dl (3.5-5.0); Chloride 105 mmol/L (98-107); Sodium 137 mmol/L (136-145)
[2025-02-15 06:11] LABS: Potassium 3.9 mmoL/L (3.5-5.1)
[2025-02-15 06:13] LABS: Alanine Aminotransferase 15 U/L (12-78); Albumin/Globulin Ratio 1.7 (1.1-1.8); Alkaline Phosphatase 75 U/L (38-126); Anion Gap 10.9 mEq/L (5-15); Aspartate Amino Transferase 31 U/L (17-59); Bilirubin,Total 1.0 mg/dl (0.2-1.3); Blood Urea Nitrogen 16 mg/dl (9-20); Carbon Dioxide 25 mmol/L (22.0-30.0); Creatinine Clearance Estimated 173 mL/min (50-200); Creatinine,Serum 0.90 mg/dl (0.66-1.25); Estimated Glomerular Filt Rate 107 ml/min (>60); GFR (African American) 129 ML/MIN (>60); Globulin 2.6 g/dL (1.3-3.2); Total Protein,Serum 7.1 g/dl (6.3-8.2)
[2025-02-15 06:14] LABS: Calcium 8.9 mg/dl (8.4-10.2); Glucose 111 mg/dl (74-100); Magnesium 2.1 mg/dl (1.6-2.3)
[2025-02-15 06:28] LABS: Troponin I < 0.01 ng/ml (0.00-0.034)
--- NOTE | 2025-02-15 07:48 | PC.NURSE ---
Pt. was admitted overnight with c/o chest pain. Pt. was seen in the ED for chest pain was discharged home and than returned to the ED with continued CP. Pt. has a Hx of heart failure and cardiomypopathy. Pt. has midsternal pain that radiates to his back. Pain is 2/10. Pt. denies Shortness of breath, nausea, or vomiting. Pt. also has a SZ history. Pt. slow to answer questions and is hard to get concrete answers to questions. pt. slept some this shift. Pt. also c/o intermittent dizziness the jpast couple of days. Personal items and call de oliveira in reach. Bed in low and locked position. safety measures in place.
[2025-02-15] MEDS: ACETAMINOPHEN 325MG TAB 650 MG PO (08:05)
[2025-02-15 08:27] LABS: C-Reactive Protein 0.4 mg/L (0-4)
[2025-02-15] MEDS: MORPHINE 4MG/ML SYRINGE 2 MG IV (08:35)
[2025-02-15 08:39] LABS: Cholesterol 116 mg/dl (140-200); HDL Cholesterol 36 mg/dl (40-60); Triglycerides 79 mg/dl (30-150)
[2025-02-15 08:59] LABS: Barbiturates Screen,Urine Positive ng/ml (<200); Benzodiazepines Screen,Urine Negative ng/ml (<200)
[2025-02-15] MEDS: DAPAGLIFLOZIN PROPANEDIOL 10 MG TABLET PO (08:59)
[2025-02-15] MEDS: BISOPROLOL 5MG TABLET 2.5 MG PO (08:59)
[2025-02-15] MEDS: SACUBITRIL/VALSARTAN 24-26MG TABLET 1 EACH PO (08:59)
[2025-02-15 09:00] LABS: Amphetamine/Metha Screen,Urine Negative ng/ml (<1000)
[2025-02-15 09:02] LABS: Methadone Screen,Urine Negative ng/ml (<300); Opiate Screen,Urine Negative ng/ml (<300)
[2025-02-15 09:03] LABS: Phencyclidine Screen,Urine Negative ng/ml (<25)
[2025-02-15 09:10] LABS: Thyroid Stimulating Hormone 2.72 uIU/mL (0.465-4.68)
--- NOTE | 2025-02-15 11:56 | HMH.PHAINT1 ---
Pharmacy Intervention Comments: COMPARED FILL HX WITH MED LIST.
[2025-02-15 11:58] LABS: Adenovirus,PCR Not Detected (NotDetected); Chlamydophila Pneumoniae, PCR Not Detected (NotDetected); Coronavirus 19, PCR Not Detected (NotDetected); Coronovirus HKU1,PCR Not Detected (NotDetected); Influenza A, PCR Not Detected (NotDetected); Influenza AH1, 2009 Not Detected (NotDetected); Influenza AH1, PCR Not Detected (NotDetected); Influenza AH3,PCR Not Detected (NotDetected); Influenza B, PCR Not Detected (NotDetected); Mycoplasma Pneumoniae, PCR Not Detected (NotDetected); Parainfluenza 1, PCR Not Detected (NotDetected); Parainfluenza 2, PCR Not Detected (NotDetected); Parainfluenza 3, PCR Not Detected (NotDetected); Parainfluenza 4, PCR Not Detected (NotDetected)
--- NOTE | 2025-02-15 12:33 | CT_ITS ---
PROCEDURE INFORMATION: Exam: CTA Chest With Contrast Exam date and time: 02/15/2025 1:32 PM Age: 19 years old Clinical indication: Pain; Chest pressure; Additional info: Chest pain TECHNIQUE: Imaging protocol: Computed tomographic angiography of the chest with contrast. Exam focused on the arteries. 3D rendering (Not supervised by radiologist): MIP and/or 3D reconstructed images were created by the technologist. Radiation optimization: All CT scans at this facility use at least one of these dose optimization techniques: automated exposure control; mA and/or kV adjustment per patient size (includes targeted exams where dose is matched to clinical indication); or iterative reconstruction. Contrast material: ISOVUE; Contrast volume: 80 ml; Contrast route: INTRAVENOUS (IV); COMPARISON: CR Chest 02/15/2025 12:07 AM FINDINGS: Pulmonary arteries: No evidence of pulmonary embolus to the segmental level. Aorta: No aneurysm of the aorta. No dissection of the aorta. Lungs: Unremarkable. No consolidation. No masses. Pleural spaces: Unremarkable. No pneumothorax. No pleural effusion. Heart: Unremarkable. No cardiomegaly. No pericardial effusion. Lymph nodes: Unremarkable. No enlarged lymph nodes. Bones/joints: Unremarkable. No acute fracture. Soft tissues: Unremarkable. IMPRESSION: 1. No evidence of pulmonary embolus to the segmental level. 2. No aneurysm of the aorta. 3. No dissection of the aorta.
--- NOTE | 2025-02-15 13:06 | EXP.DC.SUM ---
General Admission date:: 02/15/25 HPI HPI HPI: 19-year-old male with history of heart failure with mildly reduced ejection fraction, nonischemic cardiomyopathy, seizure disorder who presents with intermittent chest pain over the past 2 days. Also reports some increased dizziness over the past day. Recently was started on BuSpar. Spironolactone was decreased at his cardiology appointment on 02/10. Denies syncope. Denies nausea or vomiting. Denies shortness of breath. Has not had a seizure in well over a month. Follows with neurology at , was recently switched to Keppra 750 mg twice daily from 1000 twice daily in the past 2 months. Denies any recent trauma. Has been moving however and packing with his fianc?e as they are expecting a child. Workup in the ER with initial troponin less than 0.01. EKG with no ST elevations. Previous echo showed EF of 45%. Follows closely with cardiology. Has had workup including CCTA and MRI to evaluate his cardiomyopathy. Nonischemic at this time. Given his chest pain however, patient is high risk and would benefit from observation to monitor for improvement with cardiology evaluation. Medicine consulted for eval and further management. You were most on arrival to the floor, patient is an inconsistent historian. His responses are slow. Has a difficult time recalling specific time frames. Previously smoked and drank but does not anymore per his report. Stable on room air. No pain on palpation. Hospital Course Hospital Course Hospital Course: Reji De León is a 19-year-old male with a medical history significant for nonischemic cardiomyopathy, HFrEF, ASD/PFO who presented with chest pain and was admitted for evaluation of the same. #Chest pain #Abdominal pain #Fecal impaction ? Patient presented with 2-day onset of lower chest pain, abdominal pain. Troponins, EKG unremarkable. ? He also endorsed not having a bowel movement in more than 1 week, had diffuse mild abdominal pain. ? CTA without acute pulmonary findings, PE but did indicate stool burden on personal review. ? Patient given MiraLAX, bisacodyl, Fleet enema with bowel movements and improvement in symptoms. ? Continue MiraLAX daily. #Chronic HFmrEF #Nonischemic cardiomyopathy #ASD/PFO ? Follows closely with cardiology. BECKY in July 2024 showed LVEF 40%. Euvolemic. ? Discussed with Dr. Pierson, and given that patient has had a ECHO within the last 6 months and recommended outpatient follow-up on Sunday at [address] Tang. ? Continue home Entresto 24/26 mg, spironolactone 12.5 mg, Farxiga 10 mg, bisoprolol 2.5 mg (reduced from 5 mg due to sinus bradycardia). #Seizure disorder #Mood disorder ? Continue home Keppra 750 mg twice daily. ? Continue home risperidone 10 mg 3 times daily. Total time spent on discharge: 37 minutes on chart review, counseling, documentation, and direct care with patient. Exam Data for Last 24 hours Vital signs and Labs for Last 24 Hours: Temp Pulse Resp BP Pulse Ox O2 Del Method 97.8 F 62 16 118/60 99 Room Air 02/15/25 12:00 02/15/25 12:00 02/15/25 12:00 02/15/25 12:00 02/15/25 12:00 02/15/25 12:00 Laboratory Results - last 24 hr 02/14/25 23:38: WBC 5.3, RBC 4.90, Hgb 15.5, Hct 41.9 L, MCV 85.5, MCH 31.6 H, MCHC 37.0 H, RDW 11.3 L, Plt Count 151, MPV 10.4, Neut % (Auto) 52.2, Lymph % (Auto) 33.8, Pender % (Auto) 9.8 H, Eos % (Auto) 3.2, Baso % (Auto) 0.8, Neut # (Auto) 2.8, Lymph # (Auto) 1.8, Pender # (Auto) 0.5, Eos # (Auto) 0.2, Baso # (Auto) 0.0, PT 11.8, INR 1.07, Sodium 137, Potassium 3.9, Chloride 106, Carbon Dioxide 25, Anion Gap 9.9, BUN 18, Creatinine 0.90, Estimated Creat Clear 167, Estimated GFR 107, Est GFR ( Amer) 129, Glucose 99, Calcium 9.1, Total Bilirubin 0.7, AST 33, ALT 16, Alkaline Phosphatase 79, Troponin I < 0.01, NT-Pro-B Natriuret Pep < 20.0, Total Protein 7.4, Albumin 4.6, Globulin 2.8, Albumin/Globulin Ratio 1.6 02/15/25 03:20: Troponin I < 0.01 02/15/25 05:31: C-Reactive Protein 0.4 02/15/25 05:35: WBC 3.9 L D, RBC 4.81, Hgb 15.3, Hct 41.4 L, MCV 86.1, MCH 31.8 H, MCHC 37.0 H, RDW 11.3 L, Plt Count 143, MPV 10.5 H, Neut % (Auto) 45.2, Lymph % (Auto) 37.9, Pender % (Auto) 12.3 H, Eos % (Auto) 3.8, Baso % (Auto) 0.5, Neut # (Auto) 1.8, Lymph # (Auto) 1.5, Pender # (Auto) 0.5, Eos # (Auto) 0.2, Baso # (Auto) 0.0, Sodium 137, Potassium 3.9, Chloride 105, Carbon Dioxide 25, Anion Gap 10.9, BUN 16, Creatinine 0.90, Estimated Creat Clear 173, Estimated GFR 107, Est GFR ( Amer) 129, Glucose 111 H, Calcium 8.9, Magnesium 2.1, Total Bilirubin 1.0, AST 31, ALT 15, Alkaline Phosphatase 75, Troponin I < 0.01, Total Protein 7.1, Albumin 4.5, Globulin 2.6, Albumin/Globulin Ratio 1.7, Triglycerides 79, Cholesterol 116 L, LDL Cholesterol Direct 57.43 L, VLDL Cholesterol 16, HDL Cholesterol 36 L, Cholesterol/HDL Ratio 3.2, TSH 2.72 02/15/25 08:41: Urine Opiates Screen Negative, Urine Methadone Screen Negative, Ur Barbituates Screen Positive H, Ur Phencyclidine Scrn Negative, Ur Amphetamines Screen Negative, U Benzodiazepines Scrn Negative, Urine Cocaine Screen Negative, U Marijuana (THC) Screen Negative I & O for Last 24 hours: Intake & Output 02/12/25 02/13/25 02/14/25 02/15/25 23:59 23:59 23:59 23:59 Intake Total 480 / 480 Output Total 650 / 650 Balance -170 / -170 Weight 90.718 kg 94.075 kg Constitutional Constitutional: no acute distress *Routine HEENT Exam Head: Present normocephalic Eye: Present EOMI and PERRL ENT: Present mucous membranes moist *Routine Neck Exam Neck: Present supple; Absent lymphadenopathy *Routine Respiratory Exam Respiratory: Present CTA bilaterally *Routine Cardiovascular Exam Cardiovascular: Present RRR *Routine Abdominal Exam Abdominal: Present soft and normoactive bowel sounds; Absent tenderness *Routine Extremities Exam Extremities: Absent cyanosis, clubbing or edema *Routine Skin Exam Skin: Present warm; Absent rash *Routine Neurological Exam Neurological: Present alert and oriented X3 Results Data Completed and Pending Labs on day of discharge: Labs from last 24 hours 02/15/25 02/15/25 02/15/25 08:41 05:35 05:31 WBC 3.9 L D RBC 4.81 Hgb 15.3 Hct 41.4 L MCV 86.1 MCH 31.8 H MCHC 37.0 H RDW 11.3 L Plt Count 143 MPV 10.5 H Neut % (Auto) 45.2 Lymph % (Auto) 37.9 Pender % (Auto) 12.3 H Eos % (Auto) 3.8 Baso % (Auto) 0.5 Neut # (Auto) 1.8 Lymph # (Auto) 1.5 Pender # (Auto) 0.5 Eos # (Auto) 0.2 Baso # (Auto) 0.0 PT INR Sodium 137 Potassium 3.9 Chloride 105 Carbon Dioxide 25 Anion Gap 10.9 BUN 16 Creatinine 0.90 Estimated Creat Clear 173 Estimated GFR 107 Est GFR ( Amer) 129 Glucose 111 H Calcium 8.9 Magnesium 2.1 Total Bilirubin 1.0 AST 31 ALT 15 Alkaline Phosphatase 75 Troponin I < 0.01 C-Reactive Protein 0.4 NT-Pro-B Natriuret Pep Total Protein 7.1 Albumin 4.5 Globulin 2.6 Albumin/Globulin Ratio 1.7 Triglycerides 79 Cholesterol 116 L LDL Cholesterol Direct 57.43 L VLDL Cholesterol 16 HDL Cholesterol 36 L Cholesterol/HDL Ratio 3.2 TSH 2.72 Urine Opiates Screen Negative Urine Methadone Screen Negative Ur Barbituates Screen Positive H Ur Phencyclidine Scrn Negative Ur Amphetamines Screen Negative U Benzodiazepines Scrn Negative Urine Cocaine Screen Negative U Marijuana (THC) Screen Negative 02/15/25 02/14/25 03:20 23:38 WBC 5.3 RBC 4.90 Hgb 15.5 Hct 41.9 L MCV 85.5 MCH 31.6 H MCHC 37.0 H RDW 11.3 L Plt Count 151 MPV 10.4 Neut % (Auto) 52.2 Lymph % (Auto) 33.8 Pender % (Auto) 9.8 H Eos % (Auto) 3.2 Baso % (Auto) 0.8 Neut # (Auto) 2.8 Lymph # (Auto) 1.8 Pender # (Auto) 0.5 Eos # (Auto) 0.2 Baso # (Auto) 0.0 PT 11.8 INR 1.07 Sodium 137 Potassium 3.9 Chloride 106 Carbon Dioxide 25 Anion Gap 9.9 BUN 18 Creatinine 0.90 Estimated Creat Clear 167 Estimated GFR 107 Est GFR ( Amer) 129 Glucose 99 Calcium 9.1 Magnesium Total Bilirubin 0.7 AST 33 ALT 16 Alkaline Phosphatase 79 Troponin I < 0.01 < 0.01 C-Reactive Protein NT-Pro-B Natriuret Pep < 20.0 Total Protein 7.4 Albumin 4.6 Globulin 2.8 Albumin/Globulin Ratio 1.6 Triglycerides Cholesterol LDL Cholesterol Direct VLDL Cholesterol HDL Cholesterol Cholesterol/HDL Ratio TSH Urine Opiates Screen Urine Methadone Screen Ur Barbituates Screen Ur Phencyclidine Scrn Ur Amphetamines Screen U Benzodiazepines Scrn Urine Cocaine Screen U Marijuana (THC) Screen DS: Diagnosis Discharge Diagnosis (1) Chest pain: Status: Acute Code(s): R07.9 - Chest pain, unspecified (2) Epilepsy: Status: Chronic Code(s): G40.909 - Epilepsy, unspecified, not intractable, without status epilepticus (3) Heart failure with mildly reduced ejection fraction (HFmrEF): Status: Chronic Code(s): I50.20 - Unspecified systolic (congestive) heart failure (4) Cardiomyopathy: Status: Acute Code(s): I42.9 - Cardiomyopathy, unspecified Qualifiers: Cardiomyopathy type: other Qualified Code(s): I42.8 - Other cardiomyopathies (5) Mood disorder: Status: Acute Code(s): F39 - Unspecified mood [affective] disorder (6) ASD (atrial septal defect): Status: Chronic Code(s): Q21.10 - Atrial septal defect, unspecified Meds Home Medications and Allergies Home Medications ?Medication ?Instructions ?Recorded ?Confirmed ?Type Farxiga 10 mg tablet 10 mg PO DAILY #30 tabs 09/03/24 02/15/25 Rx (dapagliflozin propanediol) albuterol sulfate 90 mcg/actuation 2 puff inhalation Q6H PRN 07/29/25 09/07/25 Rx aerosol inhaler (Ventolin HFA) shortness of breath or wheezing #8.5 grams omeprazole 20 mg capsule,delayed 20 mg PO DAILY #30 caps 01/06/25 02/15/25 Rx release blood pressure monitor (Blood #1 ea 02/10/25 02/10/25 Rx Pressure Kit) buspirone 10 mg tablet 10 mg PO TID #90 tabs 02/10/25 02/15/25 Rx spironolactone 25 mg tablet 12.5 mg (1/2 x 25 mg) PO DAILY 30 02/10/25 02/15/25 Rx days #15 tabs bisoprolol fumarate 5 mg tablet 2.5 mg (1/2 x 5 mg) PO DAILY 30 02/15/25 02/15/25 Rx days #0 tabs levetiracetam 1,000 mg tablet 750 mg PO BID 02/15/25 02/15/25 History sacubitril 24 mg-valsartan 26 mg 24 - 26 tab PO BID 02/15/25 02/15/25 History tablet (Entresto) New Prescriptions to Start Prescriptions: Allergies Allergy/AdvReac Type Severity Reaction Status Date / Time adhesive Allergy Hives Verified 02/10/25 15:29 Discharge Plan Disposition Patient Disposition: Home, Self-Care Condition: Fair Follow up Plan Follow up with: Randall Alexander MD [Staff Physician, Cardiology] - 02/18/25 1:00 pm Prescriptions/Medication Reconciliation: Continued dapagliflozin propanediol [Farxiga] 10 mg tablet 10 mg PO DAILY Qty: 30 3RF spironolactone 25 mg tablet 12.5 mg PO DAILY 30 Days Qty: 15 6RF omeprazole 20 mg capsule,delayed release(DR/EC) 20 mg PO DAILY Qty: 30 2RF albuterol sulfate [Ventolin HFA] 90 mcg/actuation HFA aerosol inhaler 2 puff inhalation Q6H PRN (Reason: shortness of breath or wheezing) Qty: 8.5 3RF buspirone 10 mg tablet 10 mg PO TID Qty: 90 2RF (DME) blood pressure monitor [Blood Pressure Kit] Kit See Rx Instructions .Route Qty: 1 0RF Rx Instructions: As directed sacubitril-valsartan [Entresto] 24-26 mg tablet 24 - 26 tab PO BID levetiracetam 1,000 mg tablet 750 mg PO BID Changed bisoprolol fumarate 5 mg tablet 2.5 mg PO DAILY 30 Days Qty: 0 0RF Problem Reconciliation Problems Reviewed?: Yes Patient Discharge Instructions Print Language: Nigerian Providers Primary Care Provider: Provider,Referral Admit Provider: Ge Oro Attending Provider: Ge Oro
[2025-02-15] MEDS: SODIUM CHLORIDE 0.9% 10ML SYR (RAD ONLY) 10 ML IV (13:31)
[2025-02-15] MEDS: 0.9 % SODIUM CHLORIDE 50 ML VIAL IV (13:31)
[2025-02-15] MEDS: IOPAMIDOL-370 (76%);100ML BOTTLE 80 ML IV (13:31)
[2025-02-15] MEDS: POLYETHYLENE GLYCOL 3350 17 GM PACKET 34 GM PO (14:26)
[2025-02-15] MEDS: BISACODYL 5MG TABLET 10 MG PO (14:27)
[2025-02-15] MEDS: SODIUM PHOS/BIPHOSPHATE FLEET 133ML ENEMA 133 ML RC (14:28)
--- NOTE | 2025-02-15 16:23 | PC.NURSE ---
Patient reports having one big bm after fleets.
--- NOTE | 2025-02-16 10:53 | SW/DCPLANNER ---
Spoke with patient on the phone. Patient stated that he is doing good. Patient stated that he is aware of his upcoming appointments. Patient stated that they did not prescribe him any new medicine. Patient stated that he has no concerns or questions at this time. Pavan Nieto
== END 2025-02-15 16:00 | disposition home or self-care (01) ==
LOC: ER 02-15 00:07 → 2ND 02-15 01:13
PROVIDERS: Student in an Organized Health Care Education/Training Program; Admitting Provider Internal Medicine Adolescent Medicine; Emergency Provider Emergency Medicine; Visit Provider Internal Medicine Adolescent Medicine
DX: I11.0 Hypertensive heart disease with heart failure (principal); I50.21 Acute systolic (congestive) heart failure; F39 Unspecified mood [affective] disorder; I42.8 Other cardiomyopathies; Q21.10 Atrial septal defect, unspecified; G40.909 Epilepsy, unspecified, not intractable, without status epilepticus; J45.909 Unspecified asthma, uncomplicated; K56.41 Fecal impaction; Z91.048 Other nonmedicinal substance allergy status; Z82.49 Family history of ischemic heart disease and other diseases of the circulatory system; Z87.891 Personal history of nicotine dependence; Z79.899 Other long term (current) drug therapy
CPT/HCPCS: 0223U; 71046; 71275; 80053; 80061; 80307; 83735; 83880; 84443; 84484; 85025; 85610; 86140; 93005; 96372; 96374; 99285; G0378; J1650; J2270; Q9967

== ENCOUNTER 2025-05-05 22:05 | Emergency (ER) | payer OTHER, SELFPAY ==
[2025-05-05 22:17] VITALS: BP 152/82; PULSE 80; RESP 22; TEMP 37; O2SAT 98; BMI 31.0
--- NOTE | 2025-05-05 22:25 | CT_ITS ---
PROCEDURE INFORMATION: Exam: CT Maxillofacial Without Contrast Exam date and time: 05/05/2025 11:01 PM Age: 19 years old Clinical indication: Pain and injury or trauma; Fall; Nose pain; Blunt trauma (contusions or hematomas); Additional info: Fall, nasal bone injury, epistaxis TECHNIQUE: Imaging protocol: Computed tomography of the face without contrast. Radiation optimization: All CT scans at this facility use at least one of these dose optimization techniques: automated exposure control; mA and/or kV adjustment per patient size (includes targeted exams where dose is matched to clinical indication); or iterative reconstruction. COMPARISON: CT HEAD/BRAIN WO CON 05/05/2025 10:59 PM FINDINGS: Paranasal sinuses: No air-fluid levels. There is mild mucoperiosteal thickening and mucous retention cysts within the maxillary sinuses. Orbital cavities: Orbits are normal. Globes are unremarkable. Bones: No acute fracture. Soft tissues: Unremarkable. IMPRESSION: No acute fracture.
--- NOTE | 2025-05-05 22:25 | CT_ITS ---
PROCEDURE INFORMATION: Exam: CT Head Without Contrast Exam date and time: 05/05/2025 10:59 PM Age: 19 years old Clinical indication: Injury or trauma; Fall; Blunt trauma (contusions or hematomas); Syncope and collapse; Additional info: Fall, syncope, head trauma TECHNIQUE: Imaging protocol: Computed tomography of the head without contrast. Radiation optimization: All CT scans at this facility use at least one of these dose optimization techniques: automated exposure control; mA and/or kV adjustment per patient size (includes targeted exams where dose is matched to clinical indication); or iterative reconstruction. COMPARISON: CT HEAD/BRAIN WO CON 01/02/2025 8:12 PM FINDINGS: Brain: Normal. No hemorrhage. Unremarkable white matter. No mass effect. Cerebral ventricles: No ventriculomegaly. Paranasal sinuses: There are a few mucous retention cysts within the maxillary sinuses. Mastoid air cells: Visualized mastoid air cells are well aerated. Orbital cavities: The orbital contents are symmetric and normal. Bones: Unremarkable. No acute fracture. Soft tissues: Unremarkable. IMPRESSION: No acute intracranial abnormality.
--- NOTE | 2025-05-05 22:25 | XR_ITS ---
PROCEDURE INFORMATION: Exam: XR Chest Exam date and time: 05/05/2025 11:03 PM Age: 19 years old Clinical indication: Other: Syncope TECHNIQUE: Imaging protocol: Radiologic exam of the chest. Views: 1 view. COMPARISON: CT ANGIO CHEST PE PROTOCOL 02/15/2025 1:32 PM FINDINGS: Lungs: Unremarkable. No consolidation. Pleural spaces: Unremarkable. No pleural effusion. No pneumothorax. Heart/Mediastinum: Unremarkable. No cardiomegaly. Vasculature: Unremarkable. Bones/joints: Unremarkable. IMPRESSION: No acute findings.
--- NOTE | 2025-05-05 22:27 | HMH.EDGENADL ---
Discharge Plan Disposition Patient Disposition: Home, Self-Care Condition: Good Prescriptions Prescriptions: No Action dapagliflozin propanediol [Farxiga] 10 mg tablet 10 mg PO DAILY Qty: 30 3RF spironolactone 25 mg tablet 12.5 mg PO DAILY 30 Days Qty: 15 6RF albuterol sulfate [Ventolin HFA] 90 mcg/actuation HFA aerosol inhaler 2 puff inhalation Q6H PRN (Reason: shortness of breath or wheezing) Qty: 8.5 3RF buspirone 10 mg tablet 10 mg PO TID Qty: 90 2RF (DME) blood pressure monitor [Blood Pressure Kit] Kit See Rx Instructions .Route Qty: 1 0RF Rx Instructions: As directed omeprazole 20 mg capsule,delayed release(DR/EC) 20 mg PO DAILY Qty: 30 2RF sacubitril-valsartan [Entresto] 24-26 mg tablet 24 - 26 tab PO BID Qty: 180 1RF ondansetron 4 mg tablet,disintegrating 4 mg PO Q8H PRN (Reason: nausea and vomiting) Qty: 30 0RF levetiracetam 1,000 mg tablet 750 mg PO BID bisoprolol fumarate 5 mg tablet 2.5 mg PO DAILY 30 Days Qty: 0 0RF Referrals Follow up/Referrals: Nusrat Feliz MD [Primary Care Provider, Medical] - See instructions Activity Restrictions/Add. Instructions Additional Instructions/Restrictions: Due to being evaluated emergency department for seizure-like activity today, you must stop driving immediately. Per [place] law, you must be seizure-free for at least 90 days. Please follow-up with your family doctor or your neurologist prior to then to be cleared for driving. Do not swim alone or go swimming with no supervisor bridges and buildings, operate heavy machinery, or lock the bathroom door while bathing. Do not undertake activities such as water sports, climbing, or where there is injury if you were to fall. Do not bathe children by yourself Encourage you to follow-up with your hunting sales leader and to continue taking your Keppra as prescribed to help prevent seizures. If you develop any new or worsening symptoms, or if you become concerned for your help for any reason, return to the emergency department for evaluation. Clinical Impressions Clinical Impression: Syncope, Epistaxis Instructions Patient Instructions: DI for Seizure Disorder in Adults, DI for Seizure (Not Epilepsy/Seizure Disorder), DI for Seizure Disorder in Child Print Language Print Language: Turkmen Discharge ED Provider: Ajit Plata General Adult HPI General Chief complaint: Seizure Stated complaint: Syncope Time Seen by Provider: 05/05/25 22:14 History of Present Illness HPI narrative: Reji De León is a 19y male with past medical history of his seizures, syncope, HFrEF, who presents to the emergency department for complaints of an episode of passing out and facial trauma. Patient states that at home prior to arrival, he was standing and felt like he had lightheadedness and then everything went black and causing him to fall. He states that he did hit his face. When he tried to get back up, he did fall again. Significant other at bedside states that she did not think he had any seizure activity but felt like he was getting close. Patient had bleeding from the left side of his nose after this that has since stopped. He denies any chest pain or shortness of breath. He states that he has had these episodes of lightheadedness and passing out in the past. Patient states that he was recently started on spironolactone by his hunting sales leader but stopped taking it because he felt like it gave him short chest pains. He also states that over last week, he has stopped taking his Keppra as well. Related Data Home Medications ?Medication ?Instructions ?Recorded ?Confirmed levetiracetam 1,000 mg tablet 750 mg PO BID 02/15/25 02/15/25 Previous Rx's ?Medication ?Instructions ?Recorded Farxiga 10 mg tablet 10 mg PO DAILY #30 tabs 09/03/24 (dapagliflozin propanediol) albuterol sulfate 90 mcg/actuation 2 puff inhalation Q6H PRN 01/06/25 aerosol inhaler (Ventolin HFA) shortness of breath or wheezing #8.5 grams blood pressure monitor (Blood #1 ea 02/10/25 Pressure Kit) buspirone 10 mg tablet 10 mg PO TID #90 tabs 02/10/25 spironolactone 25 mg tablet 12.5 mg (1/2 x 25 mg) PO DAILY 30 02/10/25 days #15 tabs bisoprolol fumarate 5 mg tablet 2.5 mg (1/2 x 5 mg) PO DAILY 30 09/07/25 days #0 tabs omeprazole 20 mg capsule,delayed 20 mg PO DAILY #30 caps 03/24/25 release sacubitril 24 mg-valsartan 26 mg 24 - 26 tab PO BID #180 tabs 04/13/25 tablet (Entresto) ondansetron 4 mg disintegrating 4 mg PO Q8H PRN nausea and 04/17/25 tablet vomiting #30 tabs Allergies Allergy/AdvReac Type Severity Reaction Status Date / Time adhesive Allergy Hives Verified 02/10/25 15:29 [facility] Disclaimer: The information contained in this section may have been updated after the patient was seen, as this information can be updated by other users. Medical History (Updated 05/05/25 @ 23:39 by Ajit Plata MD) Heart failure with mildly reduced ejection fraction (HFmrEF) Palpitations Abnormal findings on diagnostic imaging of heart and coronary circulation HFrEF (heart failure with reduced ejection fraction) Daytime somnolence Snoring ASD (atrial septal defect) Abnormal computed tomography angiography (CTA) Cardiomyopathy Syncope Orthostatic hypotension Pulmonary valve regurgitation Diastolic dysfunction Burning chest pain Chest pain Systolic heart failure Abnormal electrocardiogram [ECG] [EKG] Asthma Surgical History No history of previous surgery Family History Family history of heart disease Diabetes Alcoholism Stroke Social History (Updated 02/15/25 @ 02:46 by Yana Elkins RN) Smoking Status: Current every day smoker alcohol intake: former substance use type: marijuana current occupational status: unemployed and disabled Travel in the last 8 weeks?: None household members: family housing: house marital status: single caffeine: Yes Have you lived/traveled outside US in past 30 days?: No Contact w/someone who lives/traveled outside US past 30 days?: No Exposure to someone with infectious disease in past 14 days?: No Do you have a fever (greater than 100.4 F or 38 C)?: No Have you tested positive for COVID-19?: No Exposed to someone with COVID-19 in past 14 days?: No Do you have a sore throat?: No Do you have a cough?: No Do you have any weakness?: No Do you have any diarrhea?: No Are you experiencing any unusual bleeding?: No Do you have any muscle aches/pain?: No Do you have any abdominal pain?: No Are you experiencing loss of taste or smell?: No Other Medical History Have you received the Flu Vaccine for this season: No Have you received the Pneumonia Vaccine: No ROS Obtained: Yes Systems reviewed as appropriate & no additional complaints except as documented Physical Exam General General appearance: alert and in no apparent distress Head Head exam: atraumatic Eye Eye exam: Present normal appearance ENT ENT exam: Present normal external ear exam and other (swelling to bridge of nose without septal deviation, no septal hematoma, no active epistaxis) Neck Neck exam: Present full ROM Chest Chest inspection: Present symmetric chest wall rise Respiratory Respiratory exam: Present normal lung sounds bilaterally; Absent respiratory distress, wheezes or stridor Cardiovascular Cardiovascular exam: Present regular rate and normal rhythm Abdominal Exam Abdominal exam: Present soft; Absent distention, tenderness, guarding, rebound or rigidity exam: Present deferred Extremities Exam Extremities exam: Present normal inspection Back Exam Back exam: Present normal inspection; Absent vertebral tenderness Neurological Exam Neurological exam: Present alert, oriented X3 and CN II-XII intact; Absent motor sensory deficit Psychiatric Psychiatric exam: Present normal affect Skin Skin exam: Present warm and dry Medical Decision Making Medical Records Screening: Per USPSTF and CDC recommendations, given the prevalence of disease in our region, it is our hospital?s policy to screen for HIV and viral Hepatitis for all patients aged 18 and over and those with ongoing risk factors. Alin Inquiry Pt receiving controlled substance: No Vital Signs: 05/05/25 22:17 05/05/25 22:30 05/05/25 23:42 Temperature 98.6 F 97.9 F Temperature Source Oral Oral Pulse Rate 74 67 Pulse Rate [Left Radial] 80 Respiratory Rate 22 16 Blood Pressure 134/70 130/69 Blood Pressure [Left Arm] 152/82 H Blood Pressure Mean 105 Blood Pressure Mean [Left Arm] 105 Blood Pressure Source [Left Arm] Automatic Cuff Blood Pressure Position [Left Arm] Sitting 02 Sat by Pulse Oximetry 98 97 Oxygen Delivery Method Room Air Room Air Lab Data Lab Results 05/05/25 21:51: WBC 5.8, RBC 4.97, Hgb 15.9, Hct 42.4, MCV 85.3, MCH 32.0 H, MCHC 37.5 H, RDW 11.7, Plt Count 168, MPV 11.0 H, Neut % (Auto) 67.2, Lymph % (Auto) 23.3, [place] % (Auto) 7.4, Eos % (Auto) 1.6, Baso % (Auto) 0.3, Neut # (Auto) 3.9, Lymph # (Auto) 1.4, [place] # (Auto) 0.4, Eos # (Auto) 0.1, Baso # (Auto) 0.0, Sodium 142, Potassium 4.0, Chloride 102, Carbon Dioxide 27, Anion Gap 17.0 H, BUN 14, Creatinine 1.00, Estimated Creat Clear 157, Estimated GFR 94, Est GFR ( Amer) 114, Glucose 104 H, Calcium 9.0, Magnesium 2.0, Total Bilirubin 0.9, AST 33, ALT 19, Alkaline Phosphatase 73, Total Creatine Kinase 101, Troponin I 0.02, NT-Pro-B Natriuret Pep < 20.0, Total Protein 8.0, Albumin 4.7, Globulin 3.3 H, Albumin/Globulin Ratio 1.4 05/05/25 23:24: Lactate 0.5 L 05/05/25 21:51 05/05/25 21:51 Orders (Tests/Meds): ORDERS Category Date Time Status CT facial bones wo con Stat Cat Scan 05/05/25 22:[address] head/brain wo con Stat Cat Scan 05/05/25 22:25 Completed CXR --portable [XR chest portable] Stat Exams 05/05/25 22:25 Completed BNP [NT Pro Brain Natriuretic Pep.] Stat Lab 05/05/25 21:51 Completed CBC w/Auto Diff [Complete Blood Count Auto Diff] Stat Lab 05/05/25 21:51 Completed CK [Creatine Kinase] Stat Lab 05/05/25 21:51 Completed CMP [Comprehensive Metabolic Panel] Stat Lab 05/05/25 21:51 Completed Lactic Acid Stat Lab 05/05/25 23:24 Completed Magnesium Stat Lab 05/05/25 21:51 Completed Troponin I Stat Lab 05/05/25 21:51 Completed Medical Decision Narrative: Reji De León is a 19y male with past medical history of his seizures, syncope, HFrEF, who presents to the emergency department for complaints of an episode of passing out and facial trauma. Patient states that at home prior to arrival, he was standing and felt like he had lightheadedness and then everything went black and causing him to fall. He states that he did hit his face. When he tried to get back up, he did fall again. Significant other at bedside states that she did not think he had any seizure activity but felt like he was getting close. Patient had bleeding from the left side of his nose after this that has since stopped. He denies any chest pain or shortness of breath. He states that he has had these episodes of lightheadedness and passing out in the past. Patient states that he was recently started on spironolactone by his hunting sales leader but stopped taking it because he felt like it gave him short chest pains. He also states that over last week, he has stopped taking his Keppra as well. On arrival, patient was initially mildly hypertensive but corrected without intervention. Vital signs otherwise within normal limits. Afebrile. Physical exam, as stated above, revealed an overall well-appearing male in no distress. He is alert and answer questions appropriately. No focal neurological deficits. He has swelling to the bridge of his nose and some tenderness mostly on the left side of the bridge of the nose. No active epistaxis. No septal hematoma or septal deviation. Pupils equal round and reactive to light. No vertebral C-spine tenderness. Cardiopulmonary exams unremarkable. Differential diagnosis includes, but is not limited to: Nasal bone fracture, intracranial hemorrhage, cardiac syncope, electrolyte derangement, vasovagal syncope, orthostatic hypotension, among others. This is less likely to be union contract representative of a seizure as significant other at bedside did not witness any seizure activity. The most morbid conditions were considered and workup was based on these. EKG was interpreted by me personally. Normal sinus rhythm. No ST elevation or depression. QTc within normal limits. Chest x-ray interpreted by me personally. No focal consolidation, no pneumothorax, no widened mediastinum, no enlargement of the cardiac silhouette. Unremarkable chest x-ray. See radiology report for details. CT imaging of the head and face were interpreted by me personally. No intracranial hemorrhage, mass or midline shift. No evidence of nasal or facial bone fracture. See radiology report for details. Patient's laboratory workup was grossly unremarkable. Lactate and CK are within normal limits. Electrolytes nonactionable. On reassessment, patient remains in stable condition. I do feel that he is appropriate for discharge at this time. I encouraged him to continue following up with cardiology for these episodes of syncope and also encouraged him to take his medications as prescribed, especially his Keppra. He states that he is followed by a neurologist in [place]. Return precautions were given. All questions were answered. He demonstrated understanding and was in agreement with this plan. He was then discharged from the emergency department in stable condition. Critical Care Critical Care Time Critical Care Time: No
[2025-05-05 22:30] VITALS: BP 134/70; PULSE 74; O2SAT 97
[2025-05-05 22:35] LABS: Hematocrit 42.4 % (42.0-52.0); Hemoglobin 15.9 g/dL (14.1-18.0); Immature Granulocytes % 0.2 %; Mean Corpuscular HGB Conc 37.5 g/dL (31.8-35.4); Mean Corpuscular Hemoglobin 32.0 pg (27.0-31.2); Mean Corpuscular Volume 85.3 fl (80-94); Nucleated Red Blood Cells % 0 %; Platelet Count 168 K/mm3 (142-424); Red Blood Count 4.97 M/mm3 (4.60-6.20); Red Cell Distribution Width-SD 35.5 fL; White Blood Count 5.8 K/mm3 (4.8-10.8)
--- NOTE | 2025-05-05 22:37 | ECG_ITS ---
APPROVED REPORT Exam: Resting ECG HR:72 bpm ECG Measurements Heart Rate 72 AXES MD 159 P 63 QRSd 97 QRS 70 QT 369 T 32 QTc 393 Conclusion SINUS RHYTHM WITH MARKED SINUS ARRHYTHMIA BORDERLINE ECG Electronically signed by : ALIRIO VILLATORO, 05/07/2025 13:51:55
[2025-05-05 22:38] LABS: Albumin Level 4.7 g/dl (3.5-5.0); Chloride 102 mmol/L (98-107)
[2025-05-05 22:39] LABS: Potassium 4.0 mmoL/L (3.5-5.1); Sodium 142 mmol/L (136-145)
[2025-05-05 22:41] LABS: Alanine Aminotransferase 19 U/L (12-78); Albumin/Globulin Ratio 1.4 (1.1-1.8); Alkaline Phosphatase 73 U/L (38-126); Anion Gap 17.0 mEq/L (5-15); Aspartate Amino Transferase 33 U/L (17-59); Bilirubin,Total 0.9 mg/dl (0.2-1.3); Blood Urea Nitrogen 14 mg/dl (9-20); Calcium 9.0 mg/dl (8.4-10.2); Carbon Dioxide 27 mmol/L (22.0-30.0); Creatine Kinase 101 U/L (55-170); Creatinine Clearance Estimated 157 mL/min (50-200); Creatinine,Serum 1.00 mg/dl (0.66-1.25); Estimated Glomerular Filt Rate 94 ml/min (>60); GFR (African American) 114 ML/MIN (>60); Globulin 3.3 g/dL (1.3-3.2); Glucose 104 mg/dl (74-100); Total Protein,Serum 8.0 g/dl (6.3-8.2)
[2025-05-05 22:42] LABS: Magnesium 2.0 mg/dl (1.6-2.3)
[2025-05-05 22:51] LABS: NT Pro Brain Natriuretic Pep. < 20.0 pg/mL (0-125)
[2025-05-05 22:53] LABS: Troponin I 0.02 ng/ml (0.00-0.034)
[2025-05-05 23:42] VITALS: BP 130/69; PULSE 67; RESP 16; TEMP 36.6; O2SAT 97
== END 2025-05-05 23:50 | disposition home or self-care (01) ==
PROVIDERS: Emergency Provider Student in an Organized Health Care Education/Training Program; PCP Family Medicine
DX: R55 Syncope and collapse (principal); R04.0 Epistaxis; F17.210 Nicotine dependence, cigarettes, uncomplicated; I50.20 Unspecified systolic (congestive) heart failure; W19.XXXA Unspecified fall, initial encounter
CPT/HCPCS: 70450; 70486; 71045; 80053; 82550; 83605; 83735; 83880; 84484; 85025; 93005; 99285

== ENCOUNTER 2025-05-29 14:33 | Outpatient (CLI) | payer OTHER, SELFPAY ==
--- NOTE | 2025-05-29 14:30 | CA_ITS ---
APPROVED REPORT EXAM: Comprehensive 2D, Doppler, and color-flow Echocardiogram Ic Engineer: SHERMAN Patrick, RVS Ht: 6 ft 1 in Wt: 217lbs BSA: 2.23 BP: 148/92 mmHg Indications: HFrEF, Previous CM, known ASD left-right shunt, ABN EKG Echo Enhancing Agent Indication: Endocardial border delineation Agent(s) / Amount(s) Used: Definity 2 cc 2D Dimensions IVSd 0.81 cm LVEF (Visual) 61.40 % PWd 1.02 cm LA Volume 37.00 mL LVDd 5.60 cm LA Volume Index 16.20 mL/m2 (M/F) 16-34 LVDs 3.73 cm EF AP2 43.7 % Left Atrium 2.78 cm GL Strain -10.5 % M-Mode Dimensions RVDd 2.58 cm (0.9-2.6) LA Diam 3.64 cm (1.9-4.0) LVDd 5.90 cm (3.5-5.7) LVDs 4.00 cm (3.5-5.7) IVSd 0.81 cm (0.6-1.1) PWd 1.04 cm (0.6-1.1) EF (Teich) 59.60% EPSs 0.80 cm FS 32.20% EDV (Teich) 173.20 mL TAPSE 2.83 (<1.7) ESV (Teich) 70.00 mL LV Diastology E Decel Time 240 (160-240 msec) E/A Ratio 0.96 MED A' 12.40 cm/s LAT A' 7.60 cm/s Aortic Valve PRAVEEN Index 1.58 cm2/m2 AoV Peak Yvan. 116.0 (50-130 cm/s) AO Peak GR. 5.40 mmHg AO Mean GR. 2.70 (<5 mmHg) AO VTI 20.5 (18-25 cm) PRAVEEN (VTI) 3.60 (2.5-4.5 cm2) Mitral Valve MV A Velocity 56.0 (40-130 cm/s) E/A Ratio 0.96 Pulmonary Valve AK End VMAX 184.0 cm/s Left Ventricle The left ventricle is normal size. Left ventricular systolic function is mildly reduced. There is normal left ventricular wall thickness. There is mild global hypokinesis present. The left ventricular diastolic function is normal. LVEF is 45% Right Ventricle The right ventricle is mildly dilated. The right ventricular systolic function is boderline reduced. Atria The left atrium size is normal. The right atrium size is normal. Known PFO. There is no color Doppler evidence of interatrial shunt. Aortic Valve The aortic valve opens well. There is no hemodynamically significant aortic valvular stenosis. No aortic regurgitation is present. Mitral Valve The mitral valve is normal in structure. No evidence of mitral valve stenosis. Mild mitral regurgitation is present. Tricuspid Valve The tricuspid valve leaflets are thin and pliable. Trace tricuspid regurgitation. There is insufficient TR jet to estimate RVSP. Pulmonic Valve The pulmonary valve is grossly normal in structure. Trace pulmonic valve regurgitation is present. Great Vessels The aortic root is normal in size. IVC is normal in size and collapses >50% with inspiration. Pericardium There is no pericardial effusion. Other Information Study Quality: Fair Conclusion Mildly reduced LV systolic function (LVEF 45%). Mild RV dilation with borderline reduction in RV function. Mild MR. Known PFO (but no Doppler evidence of interatrial shunt on this TTE). Electronically signed by : Kitty Alexander MD 06/07/2025 19:11:46
--- OUTSIDE RECORDS SUMMARY | 2025-05-29 14:36 | XMS_ITS | Clinical Summary ---
Author Organization [facility] Address [address] [facility] [address] [place] [address] Care Team Providers Care Macroeconomics Professor Name Role Phone Unavailable Primary Care Provider [...] of 3 - 19+ 3-dose series) 2022 Depression Risk Screening 06/11/2024 SDOH Screening 06/11/2024 COVID-19 Vaccine (1 - 2024-2 6 season) 2025 Influenza Vaccine (#1) 2025 Zoster Vaccines (1 [...] age to complete this topic Insurance [facility]
--- OUTSIDE RECORDS SUMMARY | 2025-05-29 14:36 | XMS_ITS | Encounter Summary ---
Author Organization Healthcare Address [address] [place] [address] Care Team Providers Care Lacquer Maker Name Role Phone Adiel Beltre DO Primary Care Provider Woodrow Hess MD Unavailable Encounter Details Date Type Department Care Team (Late Contact Info) Description 05/02/2025 Telephone [facility] [address] [place] [address] Ruby Mancini MD [address] [place] [address] Social History Tobacco Use Types Packs/Day Years [...] on file documented as of this encounter Miscellaneous Notes * Telephone Encounter - Francisco Jayme L - 05/02/2025 9:45 PM EST ----- Message from Kelsea sent at 04/27/2025 10:35 AM EST ----- Regarding: Update on patient referral: Sarthak Echols! Dr Mancini ordered an MRI Head W WO for patient Reji De León. The patient was scheduled for this study on 04-23-25 but failed to attend the appointment. If the patient contacts us, we will schedule the study as requested although it may be outside of the expected date range. If the patient presents to your clinic and you would like to schedule their imaging at that time, please call Radiology Scheduling at [phone]. If the scan is no longer needed,please cancel the scan in ANC orders. Thank you! documented in this encounter Plan of Treatment Upcoming Encounters Date Type Department Care Team (Late st Contact Info) Description 06/16/2025 2:00 PM EST Appointment [facility] [address] [facility] [address] [place] [address] documented as of this encounter Visit Diagnoses Not on filedocumented in this encounter Additional Health Concerns Assessment Noted Time A fall risk assessment has been complete d for the patient 01/12/2025 3:10 PM EDT A Body Mass Index follow-up plan has been documented for the patient 01/13/2025 10:35 AM EDT documented as of this encounter Care Teams Lacquer Maker Relationship Specialty Start Date End Date Adiel Beltre DO [facility] [address] [place] [address] PCP - General 09/09/24 Woodrow Hess MD [address] [place] [phone] Resident Neurology 01/12/25 documented as of this encounter
--- OUTSIDE RECORDS SUMMARY | 2025-05-29 14:36 | XMS_ITS | Encounter Summary ---
Author Organization Healthcare Address [address] [place] [address] Care Team Providers Care Manager Rail Name Role Phone Adiel Beltre DO Primary Care Provider [phone] Woodrow Hess MD Unavailable Reason for Referral * Consultation (Routine) - Authorized Specialty Diagnoses / Procedures Referred By Kavitha garber Referred To Contact Oral Surgery Diagnoses Extraction of tooth needed Aaron Velasquez DMD [address] [place], [address] Phone: tel: fax: [facility] [address] [place] [address] [address] [place] [address] Phone: tel: Referral ID Status Reason Start Date Expiration Date Visits Requested Visits Authorized [id number] Authorized Specialty Services Required 10/16/2024 04/17/2026 1 1 Encounter Details Date Type Department Care Team (Late st Contact Info) Description 10/16/2024 Community Orders [facility] [address] [place] [address] Aaron Velasquez DMD [address] [place], [address] Extraction of tooth needed (Primary Dx) Social [...] PM EST Appointment [facility] [address] [place] [address] Scheduled Referrals Name Type Priority Associated Diagnoses Order Schedule Ambulatory referral to Oral Maxillofacial Surgery Outpatient Referral Routine Extraction of tooth needed Ordered: 10/16/2024 documented as of this encounter Visit Diagnoses Diagnosis Extraction of tooth needed- Primary documented in this encounter Care Teams Manager Rail Relationship Specialty Start Date End Date Adiel Beltre DO [facility] [address] [place] [address] PCP - General 09/09/24 Woodrow Hess MD [address] [place] [address] Resident Neurology 01/12/25 documented as of this encounter
--- OUTSIDE RECORDS SUMMARY | 2025-05-29 14:36 | XMS_ITS | Clinical Summary ---
Author Organization Healthcare Address [address] [place] [address] Care Team Providers Care Cash Application Representative Name Role Phone AlexsanderAdiel Aishwarya MODI Primary Care Provider [phone] Woodrow Hess MD Unavailable Allergies Active Allergy [...] Encounters Date Type Department Care Team Description 05/02/2025 Telephone [facility] [address] [place] [address] Ruby Mancini MD from Last 3 Months Immunizations Immunization Administration [...] EST Appointment [facility] [address] [place] [id number] Health Maintenance Due Date Last Done Comments [facility]-Depression Screening 2003 [facility]HIV Screening 2003 [facility]-Hepatitis C Screening 2003 [facility]-Infant/Child/Adol SDOH Screenings 2003 HPV Vaccines (1 - Male 3-dose series) 2018 [facility]- SDOH Screenings 2021 [facility]-Adult SDOH Screenings 2021 [id number] Vaccine (1 - season) 2025 [facility]-Influenza Vaccine (#1) 2025 07/02/2009, [facility]-DTaP,Tdap,and Td [...] patient's age to complete this topic Insurance [facility] [place] Care Teams Cash Application Representative Relationship Specialty Start Date End Date Adiel Beltre DO [address] [facility] [address] [place] [address] PCP - General 09/09/24 Woodrow Hess MD [address] [place] [phone] Resident Neurology 01/12/25
[2025-05-29] MEDS: DEFINITY US ECHO CONTRAST 2ML INJ 2 MG IV (15:33)
== END 2025-05-29 23:59 | disposition home or self-care (01) ==
LOC: RT 14:34
PROVIDERS: PCP Internal Medicine; Visit Provider Internal Medicine
DX: Q21.12 Patent foramen ovale (principal); I08.8 Other rheumatic multiple valve diseases; I50.20 Unspecified systolic (congestive) heart failure
CPT/HCPCS: 93306; Q9957